=== PATIENT | male | born 1990 | race Caucasian/White ===

== ENCOUNTER 2016-10-26 10:12 | Emergency (ER) | payer OTHER ==
[~2016-10-26] VITALS: Ht 167.6 cm; Wt 89.6 kg
[~2016-10-26 10:12] MED LIST: ALBU1AER9 INH; AMOX1TAB43 PO; CLC100 PO; ESCI10TA17 PO; OXYC1TAB3 PO
[2016-10-26 10:28] VITALS: TEMP 37.1; Ht 167.6 cm; Wt 89.6 kg
[2016-10-26] MEDS ORDERED: ACET-1256 PO (11:11)
[2016-10-26] MEDS ORDERED: ALBUT/IPRATROP 3MG/0.5MG NEB 3 ML VIAL INH STA (11:45)
--- NOTE | 2016-10-26 11:48 | EMERGENCY ROOM VISIT NOTE ---
History First contact with patient: 11:38 Chief Complaint: FLU LIKE SX Stated Complaint: COUGHING,BODYACHES,HEADACHE History of Present Illness The patient is a 26 year old male who presents to the Emergency Room with complaints of flulike symptoms. The patient states he has had symptoms for the last 2 days. The patient reports diffuse arthralgias and myalgias. He states he also has had a cough and runny nose. He states he has chest pain only when he coughs. He rates discomfort an 8/10. He denies any earache or sore throat. He denies any shortness of breath. He denies any abdominal pain, nausea, vomiting or diarrhea. He did not get a flu shot this year. He does not know of any sick contacts. The patient has a history of asthma. He has been using his albuterol inhaler without significant relief. Review of Systems A 10 system review of systems was completed with positives and pertinent negatives listed in the HPI. Past Medical/Surgical History Medical Problems: (1) Anxiety (2) Asthma (3) H/O drug abuse (4) Hx of meningitis (5) Clemente's angina (6) Mass of left submandibular region (7) Seasonal allergic conjunctivitis Surgical Problems: (1) H/O esophagogastroduodenoscopy Family History Cancer Diabetes mellitus Gallbladder disease Heart disease Hypertension Kidney disease Kidney stones Seizures Social History Smoking Status: Current Every Day Smoker Alcohol Use: occasionally Drug Use: none Marital Status: in relationship Housing Status: lives with family, lives with significant other Occupation Status: employed Current/Historical Medications Scheduled Benzonatate (Tessalon Perles), 200 MG PO TID Oseltamivir (Tamiflu), 75 MG PO BID Scheduled PRN Albuterol (Proair Hfa), 2 PUFFS INH Q6H PRN for SOB/Wheezing Miscellaneous Medications Acetaminophen (Tylenol), 1,000 MG PO Allergies Coded Allergies: No Known Allergies (Unverified , 10/26/16) none Physical Exam Vital Signs Date Time Temp Pulse Resp B/P Pulse Ox O2 Delivery O2 Flow Rate FiO2 10/26/16 13:06 99 18 141/93 93 10/26/16 12:01 89 144/78 98 Nebulizer 10/26/16 10:28 37.1 91 18 141/86 97 Room Air Physical Exam VITALS: Vitals are noted on the nurse's note and reviewed by myself. Vital signs stable. The patient is afebrile. GENERAL: This is a 26-year-old male, in no acute distress, nondiaphoretic, well- developed well-nourished. SKIN: The skin was without rashes, erythema, edema, or bruising. There is no tenting of the skin. Capillary reflex less than 2 seconds. HEAD: Normocephalic atraumatic. EARS: External auditory canals clear, tympanic membranes pearly baum without erythema or effusion bilaterally. EYES: Pupils equal round and reactive to light and accommodation. Conjunctivae without injection, sclerae without icterus. Extraocular movements intact. NOSE: Patent, there is clear discharge MOUTH: Mucous membranes moist. Tonsils are not enlarged. Mild posterior pharyngeal erythema Uvula midline. Airway patent. Tongue does not deviate. NECK: Supple without nuchal rigidity. No lymphadenopathy. No thyromegaly. No JVD. HEART: Regular rate and rhythm without murmurs gallops or rubs. LUNGS: There are a few scattered expiratory wheezes, otherwise clear. No retractions or accessory muscle use. MUSCULOSKELETAL: No muscle atrophy, erythema, or edema noted. Full range of motion in all extremities. Normal gait. Strength 5/5 throughout. NEURO: Patient was alert and oriented to person place and time. No focal neurological deficits. Medical Decision & Procedures ER Provider Diagnostic Interpretation: TWO VIEW CHEST CLINICAL HISTORY: Cough and headache. Bodyaches. FINDINGS: PA and lateral chest radiographs are compared to study dated 07/18/2013. The cardiomediastinal silhouette is unremarkable. There is mild chronic elevation of left hemidiaphragm. The lungs and pleural spaces are clear. There is no pneumothorax. The bony thorax appears intact. IMPRESSION: No active disease in the chest. Laboratory Results Test 10/26/16 11:58 Influenza Type A Antigen Neg for Influ A (NEG) Influenza Type B Antigen Neg for Influ B (NEG) Medications Administered Medications (Trade) Dose Ordered Sig/Demian Route Start Time Stop Time Status Last Admin Dose Admin Albuterol/ Ipratropium (Duoneb) 3 ml NOW STAT INH 10/26/16 11:45 10/26/16 11:46 DC 10/26/16 11:59 3 ML ED Course The patient was seen and examined. Previous visits were reviewed. The patient is afebrile. Chest x-ray was negative for pneumonia. Influenza was negative. The patient was given a nebulizer with improvement in his symptoms The patient does have influenza-like symptoms. He does have asthma. His symptoms started approximately 2 days ago. I feel that the patient would be a candidate for Tamiflu despite having the negative influenza swab. He will also be given a prescription for Tessalon Perles and a note for work. He states he does have a 6-month-old at home who did get a flu shot. I advised him to contact the director of acquisition marketing to discuss possible prophylaxis as indicated. The case was discussed with Dr. Howell who agrees with the assessment and treatment plan Medical Decision The differential diagnosis includes bronchitis, pneumonia, influenza, viral illness, asthma exacerbation, among others Impression Primary Impression: Influenza-like symptoms Departure Information Dispostion Home / Self-Care Condition GOOD Prescriptions Benzonatate (Tessalon Perles) 200 Mg Cap 200 MG PO TID for Cough for 10 Days, #30 CAP Prov: Kayla Beach PA-C 10/26/16 Oseltamivir (Tamiflu) 75 Mg Cap 75 MG PO BID for 5 Days, #10 CAP Prov: Kayla Beach PA-C 10/26/16 Referrals No Doctor, Assigned (PCP) Forms HOME CARE DOCUMENTATION FORM, IMPORTANT VISIT INFORMATION, Work Instructions Return To Work: 3 days Patient Instructions My [facility], Rapid Influenza Antigen Nasal or Throat Swab Additional Instructions Tamiflu every 12 hours for 5 days Tessalon Perles as prescribed, as needed for cough Tylenol or ibuprofen according to package instructions for pain/fever Continue to use your inhaler Return to the ER with any worsening symptoms Recheck with your family doctor at the end of the week or early next week if symptoms are not improving
--- NOTE | 2016-10-26 12:12 | DIAGNOSTIC IMAGING REPORT ---
TWO VIEW CHEST CLINICAL HISTORY: Cough and headache. Bodyaches. FINDINGS: PA and lateral chest radiographs are compared to study dated 07/18/2013. The cardiomediastinal silhouette is unremarkable. There is mild chronic elevation of left hemidiaphragm. The lungs and pleural spaces are clear. There is no pneumothorax. The bony thorax appears intact. IMPRESSION: No active disease in the chest. Electronically signed by: Zacarias Ohara M.D. 10/26/2016 12:10 PM Dictated Date/Time: 10/26/2016 12:10 PM
[2016-10-26] MEDS ORDERED: BENZ1CAP90 PO (12:58)
[2016-10-26] MEDS ORDERED: OSEL75CA12 PO (12:58)
[2016-10-26 13:06] VITALS: BP 141/93; PULSE 99; O2SAT 93
== END 2016-10-26 13:08 | disposition home or self-care (01) ==
LOC: C.EDB 10:13 → C.EDC 13:08
DX: R69 Illness, unspecified (principal); J45.909 Unspecified asthma, uncomplicated; F17.200 Nicotine dependence, unspecified, uncomplicated; Z82.49 Family history of ischemic heart disease and other diseases of the circulatory system; Z83.79 Family history of other diseases of the digestive system; Z83.3 Family history of diabetes mellitus; Z84.1 Family history of disorders of kidney and ureter; Z82.0 Family history of epilepsy and other diseases of the nervous system

== ENCOUNTER 2017-09-07 12:23 | Emergency (ER) | payer OTHER ==
[~2017-09-07] VITALS: Ht 167.6 cm; Wt 87.0 kg
[2017-09-07 12:26] VITALS: TEMP 36.7; Ht 167.6 cm; Wt 87.0 kg
[2017-09-07] MEDS ORDERED: KETOROLAC TROMETHAMINE 30 MG/ML VIAL IV STA (12:45)
[2017-09-07] MEDS ORDERED: VNTHFA/IN INH (12:54)
[2017-09-07 13:00] LABS: BASO % 0.3 %; BASO ABS # 0.04 K/uL (0-0.2); COMPLETE YES; EOS % 5.7 %; HEMATOCRIT 46.7 % (42-52); IG% 0.3 %; LYMPH % 31.4 %; LYMPH ABS # 3.68 K/uL (1.2-3.4); MEAN CELL VOLUME 88.8 fL (80-100); MEAN CORPUSCULAR HEMOGLOBIN 30.4 pg (25-34); MEAN CORPUSCULAR HGB CONC 34.3 g/dl (32-36); MEAN PLATELET VOLUME 10.1 fL (7.4-10.4); MONO % 7.5 %; NEUT % 54.8 %; PLATELET COUNT 306 K/uL (130-400); RED BLOOD COUNT 5.26 M/uL (4.7-6.1); WHITE BLOOD COUNT 11.71 K/uL (4.8-10.8)
--- NOTE | 2017-09-07 13:16 | DIAGNOSTIC IMAGING REPORT ---
CHEST ONE VIEW PORTABLE CLINICAL HISTORY: 27 years-old Male presenting with Chest Pain. TECHNIQUE: Portable upright AP view of the chest was obtained. COMPARISON: 08/16/2017. FINDINGS: Cardiomediastinal silhouette normal. Lungs and pleural spaces clear. Osseous structures normal. Upper abdomen normal. IMPRESSION: 1. No acute cardiopulmonary disease. Electronically signed by: Feliz Alejandra M.D. 09/07/2017 1:15 PM Dictated Date/Time: 09/07/2017 1:14 PM
[2017-09-07 13:18] LABS: BLOOD UREA NITROGEN 21 mg/dl (7-18); BUN/CREATININE RATIO 17.6 (10-20); CALCIUM 9.5 mg/dl (8.5-10.1); CARBON DIOXIDE 30 mmol/L (21-32); CHLORIDE 101 mmol/L (98-107); CREATININE 1.21 mg/dl (0.60-1.40); GLUCOSE 93 mg/dl (70-99); POTASSIUM 4.4 mmol/L (3.5-5.1); SODIUM 135 mmol/L (136-145)
[2017-09-07] MEDS ORDERED: ALBUTEROL 0.083% NEBU SOLN 3 ML VIAL INH STA (13:54)
[2017-09-07 13:58] VITALS: BP 115/66; PULSE 77; O2SAT 99
--- NOTE | 2017-09-07 13:58 | EMERGENCY ROOM VISIT NOTE ---
History Report prepared by Sydni: Karely Cha Under the Supervision of: Dr. Néstor Gee D.O. First contact with patient: 12:28 Chief Complaint: CHEST PAIN Stated Complaint: CHEST PAINS Nursing Triage Summary: chest pain since last night mid sternal nonradiating with SOb and coughing up blood pt has asthma History of Present Illness The patient is a 27 year old male who presents to the Emergency Room with complaints of constant chest pain beginning last night. The patient reports that he has been feeling short of breath for the past 2-3 days. Last night he developed chest pain that he states feels like a sharp pain in the center of his chest. This pain has been constant since that time. He rates his current pain as a 9/10 in severity. Putting pressure on his chest helps to alleviate his pain, while twisting, turning, and bending exacerbate his pain. The patient has a history of asthma but states this does not feel like his typical asthma flares. He has been using his inhaler more often over the past few days due to his symptoms. The patient denies any recent trauma or injury. Patient denies swelling of calves, recent trips, history of immobilization or recent surgery, prior history of DVT, hemoptysis, history of malignancy. Patient denies diabetes , hypertension, hyperlipidemia, CAD, and history of sudden at a young age. He did have one episode 3 days ago where he coughed up a slight amount of blood. Source of History: patient Onset: last night Position: chest Symptom Intensity: 9/10 Quality: sharp Timing: constant Modifying Factors (Worsening): movement Modifying Factors (Relieving): other (pressure on chest) Associated Symptoms: + SOB Note: Pt denies any recent trauma or injury. Patient denies swelling of calves, recent trips, history of immobilization or recent surgery, prior history of DVT , hemoptysis, history of malignancy. Patient denies diabetes, hypertension, hyperlipidemia, CAD, and history of sudden at a young age. Review of Systems See HPI for pertinent positives & negatives. A total of 10 systems reviewed and were otherwise negative. Past Medical & Surgical Medical Problems: (1) Anxiety (2) Asthma (3) H/O drug abuse (4) Hx of meningitis (5) Clemente's angina (6) Mass of left submandibular region (7) Seasonal allergic conjunctivitis Surgical Problems: (1) H/O esophagogastroduodenoscopy Family History Cancer Diabetes mellitus Gallbladder disease Heart disease Hypertension Kidney disease Kidney stones Seizures Social History Smoking Status: Current Every Day Smoker Alcohol Use: occasionally Drug Use: none Marital Status: in relationship Housing Status: lives with family, lives with significant other Occupation Status: employed Current/Historical Medications Scheduled Albuterol Hfa (Ventolin Hfa), 2-4 PUFFS INH Q6H Allergies Coded Allergies: No Known Allergies (Unverified , 09/07/17) none Physical Exam Vital Signs Date Time Temp Pulse Resp B/P (MAP) Pulse Ox O2 Delivery O2 Flow Rate FiO2 09/07/17 13:58 77 20 115/66 99 Room Air 09/07/17 12:35 97 Room Air 09/07/17 12:26 36.7 88 16 131/84 95 Physical Exam GENERAL: Sitting up in bed, alert, well appearing, well nourished, no distress, non-toxic EYE EXAM: normal conjunctiva. OROPHARYNX: no exudate, no erythema, lips, buccal mucosa, and tongue normal and mucous membranes are moist NECK: supple, no nuchal rigidity, no adenopathy, non-tender LUNGS: Clear to auscultation. Normal chest wall mechanics HEART: no murmurs, S1 normal and S2 normal CHEST: Acute reproducible anterior sternal tenderness on palpation same as stated complaint. ABDOMEN: abdomen soft, non-tender, normo-active bowel sounds, no masses, no rebound or guarding. BACK: Back is symmetrical on inspection and there is no deformity, no midline tenderness, no CVA tenderness. SKIN: no rashes and no bruising UPPER EXTREMITIES: upper extremities are grossly normal. LOWER EXTREMITIES: No pitting edema, calves equal bilateral NEURO EXAM: Normal sensorium, cranial nerves II-XII grossly intact, normal speech, no gross weakness of arms, no gross weakness of legs. Medical Decision & Procedures ER Provider Diagnostic Interpretation: Radiology results as stated below per my review and the radiologist's interpretation: CHEST ONE VIEW PORTABLE CLINICAL HISTORY: 27 years-old Male presenting with Chest Pain. TECHNIQUE: Portable upright AP view of the chest was obtained. COMPARISON: 08/16/2017. FINDINGS: Cardiomediastinal silhouette normal. Lungs and pleural spaces clear. Osseous structures normal. Upper abdomen normal. IMPRESSION: 1. No acute cardiopulmonary disease. Electronically signed by: Feliz Alejandra M.D. 09/07/2017 1:15 PM Dictated Date/Time: 09/07/2017 1:14 PM Laboratory Results 09/07/17 12:44 Red Blood Count 5.26, Mean Corpuscular Volume 88.8, Mean Corpuscular Hemoglobin 30.4, Mean Corpuscular Hemoglobin Concent 34.3, Mean Platelet Volume 10.1, Neutrophils (%) (Auto) 54.8, Lymphocytes (%) (Auto) 31.4, Monocytes (%) (Auto) 7.5, Eosinophils (%) (Auto) 5.7, Basophils (%) (Auto) 0.3, Neutrophils # (Auto) 6.40, Lymphocytes # (Auto) 3.68, Monocytes # (Auto) 0.88, Eosinophils # (Auto) 0.67, Basophils # (Auto) 0.04 09/07/17 12:44 Test 09/07/17 12:44 White Blood Count 11.71 K/uL (4.8-10.8) Red Blood Count 5.26 M/uL (4.7-6.1) Hemoglobin 16.0 g/dL (14.0-18.0) Hematocrit 46.7 % (42-52) Mean Corpuscular Volume 88.8 fL (80-100) Mean Corpuscular Hemoglobin 30.4 pg (25-34) Mean Corpuscular Hemoglobin Concent 34.3 g/dl (32-36) Platelet Count 306 K/uL (130-400) Mean Platelet Volume 10.1 fL (7.4-10.4) Neutrophils (%) (Auto) 54.8 % Lymphocytes (%) (Auto) 31.4 % Monocytes (%) (Auto) 7.5 % Eosinophils (%) (Auto) 5.7 % Basophils (%) (Auto) 0.3 % Neutrophils # (Auto) 6.40 K/uL (1.4-6.5) Lymphocytes # (Auto) 3.68 K/uL (1.2-3.4) Monocytes # (Auto) 0.88 K/uL (0.11-0.59) Eosinophils # (Auto) 0.67 K/uL (0-0.5) Basophils # (Auto) 0.04 K/uL (0-0.2) RDW Standard Deviation 41.5 fL (36.4-46.3) RDW Coefficient of Variation 12.9 % (11.5-14.5) Immature Granulocyte % (Auto) 0.3 % Immature Granulocyte # (Auto) 0.04 K/uL (0.00-0.02) D-Dimer < 190 ug/L FEU (0-500) Anion Gap 4.0 mmol/L (3-11) Est Creatinine Clear Calc Drug Dose 95.6 ml/min Estimated GFR () 95.2 Estimated GFR (Non- 82.1 BUN/Creatinine Ratio 17.6 (10-20) Calcium Level 9.5 mg/dl (8.5-10.1) Troponin I < 0.015 ng/ml (0-0.045) Laboratory results per my review. Medications Administered Medications (Trade) Dose Ordered Sig/Demian Route Start Time Stop Time Status Last Admin Dose Admin Ketorolac Tromethamine (Toradol Inj) 30 mg NOW STAT IV 09/07/17 12:45 09/07/17 12:46 DC 09/07/17 12:54 30 MG Albuterol Sulfate (Ventolin 0.083% 2.5MG/3ML Neb) 2.5 mg NOW STAT INH 09/07/17 13:54 09/07/17 13:55 DC 09/07/17 13:56 2.5 MG ECG Indication: chest pain Rate (beats per minute): 76 Rhythm: normal sinus Findings: no ectopy, other (normal axis; poor baseline inferior) Comparison ECG Date: 11/14/2009 Change: no significant change ED Course ED COURSE: Vital signs were reviewed and showed normal vitals. The patients medical record was reviewed The above diagnostic studies were performed and reviewed. ED treatments and interventions as stated above. 1228: The patient was evaluated in room C9. A complete history and physical examination was performed. 1245: Ordered Toradol 30 mg IV 1350: Upon reevaluation, the patient is feeling better and resting comfortably. I discussed my findings with the patient and he understands and agrees with the treatment plan. Based on the patients age, coexisting illnesses, exam and lab findings the decision to treat as an outpatient was made. The patient remained stable while under my care. The patient appeared well at the time of discharge. 1354: Albuterol Sulfate 2.5 mg INH Medical Decision Differential diagnoses includes but is not limited to acute coronary syndrome, myocardial infarction, pericarditis, pulmonary embolus, aortic dissection, pneumonia, pneumothorax, musculoskeletal, shingles, esophageal. Patient is a 27-year-old male who presents to ER for midsternal chest pain which is reproducible on exam. CBC all BMP was unremarkable. Troponin was negative with pain greater than 8 hours. EKG was nondiagnostic. Chest x-ray unremarkable. D-dimer was negative. Pain was significant improved/resolved with Toradol. He was given a neb treatment per his request. Patient was updated at bedside and discharged with costochondritis. Discussed with Pt concerning signs and symptoms to watch out for. Pt was instructed to follow up with their PCP and discussed with the patient their option to return to the ED at anytime for persistent or worsening symptoms. The appropriate anticipatory guidance and out-patient management, including indications for return to the emergency department, were explained at length to the patient and understood. Medication Reconcilliation Current Medication List: was personally reviewed by me Blood Pressure Screening Patient's blood pressure: Normal blood pressure Impression Primary Impression: Acute costochondritis Scribe Attestation The scribe's documentation has been prepared under my direction and personally reviewed by me in its entirety. I confirm that the note above accurately reflects all work, treatment, procedures, and medical decision making performed by me. Departure Information Dispostion Home / Self-Care Referrals Rico Limon M.D. (MEDICAL) (PCP) Forms HOME CARE DOCUMENTATION FORM, IMPORTANT VISIT INFORMATION Patient Instructions My [facility] Additional Instructions Please follow up with your primary care doctor with in the next 24 hours. Any worsening of your symptoms, please return to the ED immediately. This includes any fevers greater than 100.4, worsening pain, chest pain, shortness breath, persistent nausea, vomiting, unable to eat or drink, or any other concerning signs or symptoms from your standpoint. Please take Tylenol or Motrin as needed for pain.
== END 2017-09-07 14:11 | disposition home or self-care (01) ==
LOC: C.EDB 12:27 → C.EDC 14:11
DX: M94.0 Chondrocostal junction syndrome [Tietze] (principal); J45.909 Unspecified asthma, uncomplicated; F17.200 Nicotine dependence, unspecified, uncomplicated; Z98.890 Other specified postprocedural states; Z83.3 Family history of diabetes mellitus; Z82.49 Family history of ischemic heart disease and other diseases of the circulatory system; Z84.1 Family history of disorders of kidney and ureter; Z82.0 Family history of epilepsy and other diseases of the nervous system

== ENCOUNTER 2017-09-14 05:28 | Emergency (ER) | payer OTHER ==
[~2017-09-14] VITALS: Ht 167.6 cm; Wt 89.1 kg
[~2017-09-14 05:28] MED LIST changes: -ALBU1AER9 INH; -AMOX1TAB43 PO; -CLC100 PO; -ESCI10TA17 PO; -OXYC1TAB3 PO; +VNTHFA/IN INH
[2017-09-14 05:31] VITALS: TEMP 36.6; Ht 167.6 cm; Wt 89.1 kg
[2017-09-14] MEDS ORDERED: AMOX875T PO (06:11)
[2017-09-14] MEDS ORDERED: AMOXICIL/CLAVU 875MG HOME PACK PO ONE (06:15)
[2017-09-14 06:38] VITALS: BP 131/87; PULSE 72; O2SAT 98
--- NOTE | 2017-09-14 22:43 | EMERGENCY ROOM VISIT NOTE ---
History First contact with patient: 05:36 Chief Complaint: HEAD PAIN Stated Complaint: PAIN FROM HEAD INTO EARS History of Present Illness The patient is a 27 year old male who presents to the Emergency Room with complaints of right-sided head and ear pain worsening over the past 2 days. The patient states that he went to his primary care physician yesterday, where he had cerumen removed from his right ear. He states that this ear is very painful now, and evidently they did start him on antibiotic eardrops. The patient has not had distinct fever, neck pain, chest pain or chest tightness, or shortness of breath with this. The patient rates his pain a 9/10. He has not taken anything [id number] for his symptoms. Review of Systems More than 10 systems were reviewed and otherwise negative with the exception of history of present illness. Past Medical/Surgical History Medical Problems: (1) Anxiety (2) Asthma (3) H/O drug abuse (4) Hx of meningitis (5) Clemente's angina (6) Mass of left submandibular region (7) Seasonal allergic conjunctivitis Surgical Problems: (1) H/O esophagogastroduodenoscopy Family History Cancer Diabetes mellitus Gallbladder disease Heart disease Hypertension Kidney disease Kidney stones Seizures Social History Smoking Status: Current Some Day Smoker Alcohol Use: occasionally Drug Use: none Marital Status: in relationship Housing Status: lives with family, lives with significant other Occupation Status: employed Current/Historical Medications Scheduled Amoxicillin & Pot Clavulanate (Augmentin 875-125 mg), 1 TAB PO BID Scheduled PRN Albuterol Hfa (Ventolin Hfa), 2 PUFFS INH Q6H PRN for SOB/Wheezing Physical Exam Vital Signs Date Time Temp Pulse Resp B/P (MAP) Pulse Ox O2 Delivery O2 Flow Rate FiO2 09/14/17 06:38 72 18 131/87 98 Room Air 09/14/17 05:31 36.6 90 20 152/89 98 Room Air Physical Exam VITALS: Vitals are noted on the nurse's note and reviewed by myself. Vital signs stable. GENERAL: Well-developed, well-nourished, white male, who is in no acute distress and resting comfortably. Patient is cooperative with the examination. HEAD: Normocephalic atraumatic. EARS: Right ear canal is erythematous. Right TM is erythematous without air- fluid interface. No mastoid tenderness. Left TM not visualized due to cerumen impaction. EYES: Pupils equal round and reactive to light and accommodation. Conjunctivae without injection, sclerae without icterus. Extraocular movements intact. NOSE: Patent, turbinates without inflammation or discharge. MOUTH: Mucous membranes moist. Tonsils are not enlarged. Pharynx without erythema, blood, or exudate. Uvula midline. Airway patent. NECK: Supple without nuchal rigidity. No lymphadenopathy. No thyromegaly. Cervical spine is nontender. No meningismus. HEART: Regular rate and rhythm without murmurs gallops or rubs. LUNGS: Clear to auscultation bilaterally without wheezes, rales or rhonchi. No retractions or accessory muscle use. Medical Decision & Procedures Medications Administered Medications (Trade) Dose Ordered Sig/Demian Route Start Time Stop Time Status Last Admin Dose Admin Amoxicillin/ Clavulanate Potassium (Augmentin 875MG Home Pack) 1 homepack UD ONCE PO 09/14/17 06:15 09/14/17 06:16 DC 09/14/17 06:32 1 HOMEPACK ED Course Physical exam and history were performed. Nursing notes, EMR, and Medication List were personally reviewed. Patient appears to have a right otitis media on examination. Additionally he does have some irritation in the canal likely from mechanical removal of cerumen earlier today. I'm not able to compare the bilateral TMs as there is cerumen impaction in the left ear as well. I did attempt to gently flush the cerumen with warm water, however I was not successful. Overall the patient appears well for discharge home. He will be started on oral Augmentin with his first dose provided here. He may use [id number] Debrox to help with the cerumen. He should otherwise follow with his primary care physician for further care and management. The chart was completed utilizing [employer] Voice Recognition Software. Grammatical errors, random word insertions, pronoun errors, and incomplete sentences are an occasional consequence of this system due to software limitations, ambient noise, and hardware issues. Any formal questions or concerns about the content, text, or information contained within the body of this dictation should be directly addressed to the provider for clarification. . Medical Decision Differential diagnosis: Etiologies such as viral syndrome, otitis, pharyngitis, pneumonia, influenza, meningitis, urinary tract infection, sepsis, bacteremia, as well as others were entertained. Impression Primary Impression: Right otitis media Additional Impression: Impacted cerumen of left ear Departure Information Dispostion Home / Self-Care Condition GOOD Prescriptions Amoxicillin & Pot Clavulanate (Augmentin 875-125 mg) 1 Tab Tab 1 TAB PO BID for 9 Days, #18 TAB Prov: Junior Lopez PA-C 09/14/17 Forms HOME CARE DOCUMENTATION FORM, Work Instructions, Additional Instructions: Patient was seen in the ER today for medical care. Return to work o 09/15/2017. Please excuse. IMPORTANT VISIT INFORMATION Patient Instructions My [facility] Additional Instructions You were seen and evaluated today on an emergency basis only. This is not a substitute for, or an effort to provide, complete comprehensive medical care. It is not possible to recognize and treat all injuries or illnesses in a single emergency department visit. For this reason it is recommended that you followup with your primary care physician in the next 2-3 days for recheck. For baseline pain relief you may alternate ibuprofen and acetaminophen every 4 hours for pain control. Take 600 mg ibuprofen (Advil) and then 4 hours later take 1000 mg acetaminophen (Tylenol). Do not take more than 3000 mg acetaminophen in a single day. Amoxicillin Clavulanate (Augmentin) 875mg: Take one pill twice daily for 10 days for your infection. All antibiotics can cause diarrhea. If this occurs and you feel worse or it does not resolve in 1-2 days follow up with your doctor or return to the Emergency Department as this could be signs of serious underlying problems. Any medication can cause an allergic reaction, stop the pills immediately and return to the ER for rash, hives, breathing difficulties, or swelling. Use over the counter Debrox for earwax in the left ear. You are welcome to return to the emergency department anytime with new, worsening, or concerning symptoms. Work Instructions Additional Work Instructions: Patient was seen in the ER today for medical care. Return to work on 09/15/2017. Please excuse. Problem Qualifiers
== END 2017-09-14 06:40 | disposition home or self-care (01) ==
LOC: C.EDB 05:29
DX: H66.91 Otitis media, unspecified, right ear (principal); H61.22 Impacted cerumen, left ear; R51 Headache; J45.909 Unspecified asthma, uncomplicated; F41.9 Anxiety disorder, unspecified

== ENCOUNTER 2017-09-17 14:15 | Emergency (ER) | payer OTHER ==
[~2017-09-17] VITALS: Ht 167.6 cm; Wt 85.7 kg
[~2017-09-17 14:15] MED LIST changes: +AMOX875T PO
[2017-09-17 14:19] VITALS: Ht 167.6 cm; Wt 85.7 kg
[2017-09-17] MEDS ORDERED: KETOROLAC TROMETHAMINE 30 MG/ML VIAL IV STA (14:33)
[2017-09-17] MEDS ORDERED: ONDANSETRON INJ 2 MG/ML 2 ML VIAL IV STA (14:33)
--- NOTE | 2017-09-17 14:37 | EMERGENCY ROOM VISIT NOTE ---
History Report prepared by Sydni: Ericka Araya Under the Supervision of: Dr. Fabio Sandhu D.O. First contact with patient: 14:25 Chief Complaint: HEADACHE Stated Complaint: HEADACHE AND HEARING LOSS History of Present Illness The patient is a 27 year old male who presents to the Emergency Room with complaints of a persistent headache and bilateral hearing loss. 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 He came to the ED for the same symptoms previously and also saw his PCP, but no known etiology was found. He is still on Amoxicillin that was prescribed here in the ED. He is unsure what tests he had done. The patient denies any neck pain or stiffness, chest pain, shortness of breath, nausea or vomiting. He does admit to a history of meningitis approximately 2 to 3 years ago, and also admits to a history of IV Heroin use. He does not currently use drugs. He admits to some intermittent chills but has not had a fever. He denies any leg pain or swelling or difficulty urinating. 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 A total of 10 systems reviewed and were otherwise negative. Past Medical & Surgical Medical Problems: (1) Anxiety (2) Asthma (3) H/O drug abuse (4) Hx of meningitis (5) Clemente's angina (6) Mass of left submandibular region (7) Seasonal allergic conjunctivitis Surgical Problems: (1) H/O esophagogastroduodenoscopy Family History Cancer Diabetes mellitus Gallbladder disease Heart disease Hypertension Kidney disease Kidney stones Seizures Social History Smoking Status: Current Every Day Smoker Alcohol Use: occasionally Drug Use: none Marital Status: in relationship Housing Status: lives with family, lives with significant other Occupation Status: employed Current/Historical Medications Scheduled Cefdinir (Omnicef), 300 MG PO Q12H Sertraline HCl (Sertraline HCl), 25 MG PO DAILY Scheduled PRN Albuterol Hfa (Ventolin Hfa), 2 PUFFS INH Q6H PRN for SOB/Wheezing Allergies Coded Allergies: No Known Allergies (Unverified , 09/17/17) none Physical Exam Vital Signs Date Time Temp Pulse Resp B/P (MAP) Pulse Ox O2 Delivery O2 Flow Rate FiO2 09/17/17 19:21 74 16 131/71 94 Room Air 09/17/17 17:34 37.0 75 18 134/73 94 Room Air 09/17/17 15:42 80 16 142/86 96 Room Air 09/17/17 14:19 36.4 92 20 139/91 96 Room Air Physical Exam GENERAL: Patient is awake, alert, in no acute distress, patient is resting comfortably and showing no signs of anxiety EYES: The conjunctivae are clear. The pupils are round and reactive. EARS, NOSE, MOUTH AND THROAT: Right TM was sunken and erythematous. Left TM was obscured by cerumen. The nose is without any evidence of any deformity. Mucous membranes are moist tongue is midline NECK: The neck is nontender and supple. RESPIRATORY: Normal respiratory effort is noted there is no evidence of wheezing rhonchi or rales CARDIOVASCULAR: Regular rate and rhythm noted there no murmurs rubs or gallops normal S1 normal S2 GASTROINTESTINAL: The abdomen is soft. Bowel sounds are present in all quadrants. Abdomen is nontender MUSCULOSKELETAL/EXTREMITIES: There is no evidence of gross deformity full range of motion is noted in the hips and shoulders SKIN: There is no obvious evidence of any rash. There are no petechiae, pallor or cyanosis noted. NEUROLOGIC: Patient is awake alert and oriented x3 strength is symmetric patellar reflexes are 2+ bilaterally Medical Decision & Procedures ER Provider Diagnostic Interpretation: Radiology results as stated below per my review and radiologist interpretation: HEAD WITHOUT CONTRAST (CT) CT DOSE: 614.27 mGy.cm HISTORY: Headache. Mental status change. RAHMAN TECHNIQUE: Multiaxial CT images of the head were performed without the use of intravenous contrast. A dose lowering technique was utilized adhering to the principles of ALARA. Comparison: 06/03/2014 Findings: Mild mucosal thickening of the ethmoid as well as mastoid air cells. The calvarium and skull base are intact. The ventricles and sulci are within normal limits. There is no mass, hematoma, midline shift, or acute infarct. Impression: 1. No acute intracranial abnormality. 2. Mild mucosal thickening of the mastoid and ethmoid air cells. The above report was generated using voice recognition software. It may contain grammatical, syntax or spelling errors. Electronically signed by: Saulo Lawson M.D. 09/17/2017 3:38 PM Laboratory Results 09/17/17 14:50 Red Blood Count 4.99, Mean Corpuscular Volume 88.0, Mean Corpuscular Hemoglobin 30.5, Mean Corpuscular Hemoglobin Concent 34.6, Mean Platelet Volume 10.0, Neutrophils (%) (Auto) 55.6, Lymphocytes (%) (Auto) 29.0, Monocytes (%) (Auto) 9.1, Eosinophils (%) (Auto) 5.7, Basophils (%) (Auto) 0.3, Neutrophils # (Auto) 6.66, Lymphocytes # (Auto) 3.47, Monocytes # (Auto) 1.09, Eosinophils # (Auto) 0.68, Basophils # (Auto) 0.03 09/17/17 14:50 Test 09/17/17 14:50 09/17/17 16:50 White Blood Count 11.97 K/uL (4.8-10.8) Red Blood Count 4.99 M/uL (4.7-6.1) Hemoglobin 15.2 g/dL (14.0-18.0) Hematocrit 43.9 % (42-52) Mean Corpuscular Volume 88.0 fL (80-100) Mean Corpuscular Hemoglobin 30.5 pg (25-34) Mean Corpuscular Hemoglobin Concent 34.6 g/dl (32-36) Platelet Count 320 K/uL (130-400) Mean Platelet Volume 10.0 fL (7.4-10.4) Neutrophils (%) (Auto) 55.6 % Lymphocytes (%) (Auto) 29.0 % Monocytes (%) (Auto) 9.1 % Eosinophils (%) (Auto) 5.7 % Basophils (%) (Auto) 0.3 % Neutrophils # (Auto) 6.66 K/uL (1.4-6.5) Lymphocytes # (Auto) 3.47 K/uL (1.2-3.4) Monocytes # (Auto) 1.09 K/uL (0.11-0.59) Eosinophils # (Auto) 0.68 K/uL (0-0.5) Basophils # (Auto) 0.03 K/uL (0-0.2) RDW Standard Deviation 39.8 fL (36.4-46.3) RDW Coefficient of Variation 12.5 % (11.5-14.5) Immature Granulocyte % (Auto) 0.3 % Immature Granulocyte # (Auto) 0.04 K/uL (0.00-0.02) Erythrocyte Sedimentation Rate 31 mm/hr (0-14) Anion Gap 3.0 mmol/L (3-11) Est Creatinine Clear Calc Drug Dose 114.9 ml/min Estimated GFR () 119.9 Estimated GFR (Non- 103.4 BUN/Creatinine Ratio 17.8 (10-20) Calcium Level 9.5 mg/dl (8.5-10.1) Total Bilirubin 0.3 mg/dl (0.2-1) Direct Bilirubin < 0.1 mg/dl (0-0.2) Aspartate Amino Transf (AST/SGOT) 19 U/L (15-37) Alanine Aminotransferase (ALT/SGPT) 36 U/L (12-78) Alkaline Phosphatase 110 U/L (45-117) C-Reactive Protein 3.90 mg/dl (0-0.29) Total Protein 7.6 gm/dl (6.4-8.2) Albumin 3.8 gm/dl (3.4-5.0) Lipase 74 U/L (73-393) CSF Color COLORLESS CSF Appearance CLEAR CSF WBC 1 /uL (0-5) CSF RBC 16 /uL (0) CSF Xanthrochromic NO XANTHOCHROMIA CSF Cell Count Tube # 4 CSF Chemistry Tube # 2 CSF Glucose 58 mg/dl (40-70) CSF Total Protein 39.4 mg/dl (15.0-45.0) Laboratory results per my review. Medications Administered Medications (Trade) Dose Ordered Sig/Demian Route Start Time Stop Time Status Last Admin Dose Admin Ketorolac Tromethamine (Toradol Inj) 30 mg NOW STAT IV 09/17/17 14:33 09/17/17 14:34 DC 09/17/17 15:12 30 MG Ondansetron HCl (Zofran Inj) 4 mg NOW STAT IV 09/17/17 14:33 09/17/17 14:35 DC 09/17/17 14:33 4 MG Ceftriaxone Sodium 2000 mg/ Dextrose 70 ml @ 100 mls/hr ONE STAT IV 09/17/17 16:34 09/17/17 17:15 DC 09/17/17 17:31 100 MLS/HR Dexamethasone Sodium Phosphate (Decadron Inj) 10 mg NOW STAT IV 09/17/17 16:34 09/17/17 16:35 DC 09/17/17 17:31 10 MG Procedure Lumbar Puncture Indication: Headache Verbal consent was obtained after the risks and benefits were explained, including but not limited to headache, bleeding/clotting, scarring, infection, pain, and bone/joint/nerve damage. At this time, the risks of the procedure are less than the risks of NOT performing the procedure. A time out was taken and the correct patient and site identified. The patient was placed in the seated position and the back was prepped with betadine and draped in the standard fashion. The L3 intervertebral space was identified, anesthetized locally with 1 % lidocaine without epinephrine, and the spinal needle was inserted through the skin with the bevel parallel to the dural fibers. The needle was carefully advanced into the lumbar cistern and 4 tubes of clear CSF was obtained. The stylet was replaced and the needle was removed. A bandaid was placed and the patient was placed in the supine position. The patient tolerated the procedure well and there were no complications. ED Course 1429: The patient was evaluated in room B9. A complete history and physical examination were performed. 1433: Zofran 4 mg IV, Toradol 30 mg IV. 1634: Decadron 10 mg IV, Ceftriaxone Sodium 2000 mg/Dextrose 70 ml @ 100 mls/hr IV. 1635: I reevaluated the patient. He is resting. I discussed my recommendation we perform a lumbar puncture, and he is agreeable. 1900: I reevaluated the patient. He is feeling well and resting comfortably. I discussed his results and discharge instructions and he verbalized complete understanding and agreement. Medical Decision Prior records/ancillary studies reviewed. Triage Nursing notes reviewed. The patient's history was concerning for headache. Differential diagnosis: Etiologies such as migraine headache, meningitis, sinusitis, CO exposure, ICH, SAH, infection, tumor, headache, sinus thrombosis, arterial dissection, as well as others were entertained. The patient is a 27-year-old male who presented to the emergency department for an evaluation of headache. The patient describes ear pain and fullness as well as decreased hearing. The patient did not have any focal neurological. He had some cerumen impaction in his left ear but his right ear seemed to be more symptomatic. The patient had what appeared to be an otitis media and was treated with amoxicillin recently. His exam appears to be consistent with otitis media at this time as well. The patient has a history of meningitis. He did not have meningismus but did have a mildly elevated white blood cell count. I discussed the patient's laboratory and radiographic studies with him. He was treated with IV pain medication and IV antiemetics. I discussed other causes of this headache with him which could include meningitis. For this reason a lumbar puncture was obtained. The patient tolerated the procedure well. It was not indicative of meningitis or subarachnoid hemorrhage. The patient at this time may have a sinusitis or an ongoing otitis media. I started a different antibiotic. He was encouraged to continue this antibiotic as prescribed. Is also encouraged to call his family doctor soon as possible to schedule a follow- up appointment and discuss the possibility that he may require an ear nose and throat referral for further evaluation of his symptoms. He was also encouraged to return to the emergency Department immediately symptoms change worsen or the need arises. Medication Reconcilliation Current Medication List: was personally reviewed by me Blood Pressure Screening Patient's blood pressure: Elevated blood pressure Blood pressure disposition: Elevated BP felt to be situational Impression Primary Impression: Otitis media Additional Impression: Sinusitis Scribe Attestation The scribe's documentation has been prepared under my direction and personally reviewed by me in its entirety. I confirm that the note above accurately reflects all work, treatment, procedures, and medical decision making performed by me. Departure Information Dispostion Home / Self-Care Prescriptions Cefdinir (OMNICEF) 300 Mg Cap 300 MG PO Q12H, #20 CAP Prov: Fabio Sandhu, DO 09/17/17 Referrals Rico Limon M.D. (MEDICAL) (PCP) Patient Instructions ED Otitis Media Acute Adult, My [facility], Sinusitis Acute Additional Instructions Start taking the new antibiotic tomorrow. Stop taking the amoxicillin tomorrow. Continue taking Motrin and Tylenol as directed for pain. Drink plenty clear liquids. Try using an [id number] nasal spray such as Flonase for decongestion. Follow-up with your family doctor as soon as possible to discuss the possibility that you may require a referral to an ear nose and throat physician if symptoms do not improve. Return to the emergency department if symptoms change worsen or the need arises. Problem Qualifiers Primary Impression: Otitis media Otitis media type: unspecified Chronicity: acute Qualified Codes: H66.90 - Otitis media, unspecified, unspecified ear Additional Impression: Sinusitis Sinusitis location: unspecified location Chronicity: acute Recurrence: not specified as recurrent Qualified Codes: J01.90 - Acute sinusitis, unspecified
[2017-09-17] MEDS ORDERED: ZLF/50 PO (14:43)
[2017-09-17 15:04] LABS: BASO % 0.3 %; BASO ABS # 0.03 K/uL (0-0.2); COMPLETE YES; EOS % 5.7 %; HEMATOCRIT 43.9 % (42-52); IG% 0.3 %; LYMPH ABS # 3.47 K/uL (1.2-3.4); MEAN CORPUSCULAR HEMOGLOBIN 30.5 pg (25-34); MEAN CORPUSCULAR HGB CONC 34.6 g/dl (32-36); MONO % 9.1 %; NEUT % 55.6 %; PLATELET COUNT 320 K/uL (130-400); RED BLOOD COUNT 4.99 M/uL (4.7-6.1); WHITE BLOOD COUNT 11.97 K/uL (4.8-10.8)
[2017-09-17 15:37] LABS: ALT/SGPT 36 U/L (12-78); AST/SGOT 19 U/L (15-37); BLOOD UREA NITROGEN 18 mg/dl (7-18); BUN/CREATININE RATIO 17.8 (10-20); CALCIUM 9.5 mg/dl (8.5-10.1); CARBON DIOXIDE 30 mmol/L (21-32); CHLORIDE 103 mmol/L (98-107); GLUCOSE 84 mg/dl (70-99); POTASSIUM 4.1 mmol/L (3.5-5.1); SODIUM 136 mmol/L (136-145)
--- NOTE | 2017-09-17 15:39 | DIAGNOSTIC IMAGING REPORT ---
HEAD WITHOUT CONTRAST (CT) CT DOSE: 614.27 mGy.cm HISTORY: Headache. Mental status change. RAHMAN TECHNIQUE: Multiaxial CT images of the head were performed without the use of intravenous contrast. A dose lowering technique was utilized adhering to the principles of ALARA. Comparison: 06/03/2014 Findings: Mild mucosal thickening of the ethmoid as well as mastoid air cells. The calvarium and skull base are intact. The ventricles and sulci are within normal limits. There is no mass, hematoma, midline shift, or acute infarct. Impression: 1. No acute intracranial abnormality. 2. Mild mucosal thickening of the mastoid and ethmoid air cells. The above report was generated using voice recognition software. It may contain grammatical, syntax or spelling errors. Electronically signed by: Saulo Lawson M.D. 09/17/2017 3:38 PM Dictated Date/Time: 09/17/2017 3:36 PM
[2017-09-17 15:40] LABS: ALKALINE PHOSPHATASE 110 U/L (45-117)
[2017-09-17] MEDS ORDERED: DEXAMETHASONE SOD INJ 4 MG/ML VIAL IV STA (16:34)
[2017-09-17] MEDS ORDERED: CEFTRIAXONE SOD INJ 2,000 MG in DEXTROSE 5% 50ML 50 ML IV STA (16:34)
[2017-09-17 17:19] LABS: CSF TOTAL PROTEIN 39.4 mg/dl (15.0-45.0)
[2017-09-17 17:28] LABS: CSF APPEARANCE CLEAR; CSF COLOR COLORLESS; CSF XANTHOCHROMIC NO XANTHOCHROMIA
[2017-09-17 17:31] LABS: CSF CHEMISTRY TUBE # 2
[2017-09-17 17:34] VITALS: TEMP 37
[2017-09-17 17:44] LABS: CSF APPEARANCE CLEAR; CSF COLOR COLORLESS; CSF XANTHOCHROMIC NO XANTHOCHROMIA
[2017-09-17] MEDS ORDERED: CEFD300C2 PO (19:06)
[2017-09-17 19:21] VITALS: BP 131/71; PULSE 74; O2SAT 94
== END 2017-09-17 19:23 | disposition home or self-care (01) ==
LOC: C.EDB 14:15
DX: H66.90 Otitis media, unspecified, unspecified ear (principal); J01.90 Acute sinusitis, unspecified; J45.909 Unspecified asthma, uncomplicated; F17.200 Nicotine dependence, unspecified, uncomplicated; Z86.69 Personal history of other diseases of the nervous system and sense organs; Z98.890 Other specified postprocedural states; Z83.3 Family history of diabetes mellitus; Z82.49 Family history of ischemic heart disease and other diseases of the circulatory system; Z84.1 Family history of disorders of kidney and ureter; Z82.0 Family history of epilepsy and other diseases of the nervous system

== ENCOUNTER 2017-09-18 18:28 | Emergency (ER) | payer OTHER ==
[~2017-09-18] VITALS: Ht 167.6 cm; Wt 86.5 kg
[~2017-09-18 18:28] MED LIST changes: -AMOX875T PO; +CEFD300C2 PO; +ZLF/50 PO
[2017-09-18 18:31] VITALS: TEMP 36.7; Ht 167.6 cm; Wt 86.5 kg
[2017-09-18] MEDS ORDERED: SODIUM CHLORIDE 0.9% 1000ML 1,000 ML IV STA (19:07)
[2017-09-18] MEDS ORDERED: METHYLPREDNISOLONE 125 MG VIAL IV STA (19:10)
--- NOTE | 2017-09-18 19:10 | EMERGENCY ROOM VISIT NOTE ---
History Report prepared by Mariaibsandra: Ericka Araya Under the Supervision of: Dr. Margarette Hartley M.D. First contact with patient: 19:02 Chief Complaint: NECK PAIN Stated Complaint: NECK PAIN, HEADACHE History of Present Illness The patient is a 27 year old male who presents to the Emergency Room with complaints of a worsening headache for the past day. He rates his discomfort as a 10/10 in severity. Movement worsens his pain. He came here to the ED yesterday with a persistent headache and hearing loss, and had a CT scan and lumbar puncture procedure. This morning when he woke up, his headache had worsened and he developed neck pain and stiffness. He states his headache is more severe today than the headache he experienced yesterday. He does believe it is worse when he coughs or when he sits up. The pain is worse when he is standing. Source of History: patient Onset: yesterday Position: head Symptom Intensity: 10/10 Timing: worsening Modifying Factors (Worsening): movement Associated Symptoms: + neck pain Review of Systems See HPI for pertinent positives & negatives. A total of 10 systems reviewed and were otherwise negative. Past Medical & Surgical Medical Problems: (1) Anxiety (2) Asthma (3) H/O drug abuse (4) Hx of meningitis (5) Clemente's angina (6) Mass of left submandibular region (7) Seasonal allergic conjunctivitis Surgical Problems: (1) H/O esophagogastroduodenoscopy Family History Cancer Diabetes mellitus Gallbladder disease Heart disease Hypertension Kidney disease Kidney stones Seizures Social History Smoking Status: Current Every Day Smoker Alcohol Use: occasionally Drug Use: none Marital Status: in relationship Housing Status: lives with family, lives with significant other Occupation Status: employed Current/Historical Medications Scheduled Cefdinir (Omnicef), 300 MG PO Q12H Sertraline HCl (Sertraline HCl), 50 MG PO DAILY Scheduled PRN Albuterol Hfa (Ventolin Hfa), 2 PUFFS INH Q6H PRN for SOB/Wheezing Allergies Coded Allergies: No Known Allergies (Unverified , 09/17/17) none Physical Exam Vital Signs Date Time Temp Pulse Resp B/P (MAP) Pulse Ox O2 Delivery O2 Flow Rate FiO2 09/18/17 22:18 90 95 09/18/17 22:03 87 17 93 09/18/17 22:01 130/76 09/18/17 21:48 91 14 94 09/18/17 21:33 85 13 93 09/18/17 21:30 130/80 09/18/17 21:18 81 16 93 09/18/17 21:03 75 17 96 09/18/17 21:00 126/74 09/18/17 20:48 76 13 95 09/18/17 20:43 61 15 96 09/18/17 20:30 103/70 09/18/17 20:28 64 14 93 09/18/17 20:13 63 17 93 Room Air 09/18/17 20:12 67 09/18/17 20:00 111/75 09/18/17 18:31 36.7 86 16 144/75 98 Room Air Physical Exam Vital signs reviewed. General: Well-appearing 27 year old male, laying on abdomen, in some discomfort. HEENT: No scleral icterus, PERRLA. Some discomfort with forward flexion of the neck. Atraumatic. Cardiovascular: Regular rate and rhythm, no extra sounds. Pulmonary: Clear to auscultation bilaterally, normal work of breathing. Abdomen: Soft, nontender, nondistended, positive bowel sounds. Musculoskeletal: Atraumatic, no peripheral edema. Neurologic: Patient awake alert and oriented x 3, full strength in all 4 extremities. Cranial nerves 2 through 12 grossly intact. Skin: Warm, clammy, no rash Medical Decision & Procedures Laboratory Results 09/18/17 19:32 Red Blood Count 4.72, Mean Corpuscular Volume 89.6, Mean Corpuscular Hemoglobin 30.3, Mean Corpuscular Hemoglobin Concent 33.8, Mean Platelet Volume 10.0, Neutrophils (%) (Auto) 70.4, Lymphocytes (%) (Auto) 19.4, Monocytes (%) (Auto) 9.3, Eosinophils (%) (Auto) 0.4, Basophils (%) (Auto) 0.1, Neutrophils # (Auto) 14.08, Lymphocytes # (Auto) 3.87, Monocytes # (Auto) 1.86, Eosinophils # (Auto) 0.08, Basophils # (Auto) 0.01 09/18/17 19:32 Test 09/18/17 19:32 White Blood Count 19.98 K/uL (4.8-10.8) Red Blood Count 4.72 M/uL (4.7-6.1) Hemoglobin 14.3 g/dL (14.0-18.0) Hematocrit 42.3 % (42-52) Mean Corpuscular Volume 89.6 fL (80-100) Mean Corpuscular Hemoglobin 30.3 pg (25-34) Mean Corpuscular Hemoglobin Concent 33.8 g/dl (32-36) Platelet Count 293 K/uL (130-400) Mean Platelet Volume 10.0 fL (7.4-10.4) Neutrophils (%) (Auto) 70.4 % Lymphocytes (%) (Auto) 19.4 % Monocytes (%) (Auto) 9.3 % Eosinophils (%) (Auto) 0.4 % Basophils (%) (Auto) 0.1 % Neutrophils # (Auto) 14.08 K/uL (1.4-6.5) Lymphocytes # (Auto) 3.87 K/uL (1.2-3.4) Monocytes # (Auto) 1.86 K/uL (0.11-0.59) Eosinophils # (Auto) 0.08 K/uL (0-0.5) Basophils # (Auto) 0.01 K/uL (0-0.2) RDW Standard Deviation 41.2 fL (36.4-46.3) RDW Coefficient of Variation 12.7 % (11.5-14.5) Immature Granulocyte % (Auto) 0.4 % Immature Granulocyte # (Auto) 0.08 K/uL (0.00-0.02) Anion Gap 7.0 mmol/L (3-11) Est Creatinine Clear Calc Drug Dose 86.7 ml/min Estimated GFR () 84.9 Estimated GFR (Non- 73.3 BUN/Creatinine Ratio 21.9 (10-20) Calcium Level 9.4 mg/dl (8.5-10.1) Laboratory results per my review. Medications Administered Medications (Trade) Dose Ordered Sig/Demian Route Start Time Stop Time Status Last Admin Dose Admin Caffeine Citrated 500 mg/Sodium Chloride 1,025 ml @ 512.5 mls/ hr NOW STAT IV 09/18/17 19:29 09/18/17 21:28 DC 09/18/17 20:05 512.5 MLS/HR Sodium Chloride 1,000 ml @ 999 mls/hr Q1H1M STAT IV 09/18/17 19:07 12/9/17 20:07 DC 09/18/17 20:05 999 MLS/HR Methylprednisolone Sodium Succinate (Solu-Medrol IV) 125 mg NOW STAT IV 09/18/17 19:10 09/18/17 19:11 DC 09/18/17 20:01 125 MG Hydromorphone HCl (Dilaudid Inj) 1 mg NOW STAT IV 09/18/17 20:55 09/18/17 20:56 DC 09/18/17 21:11 1 MG ED Course 1905: Past medical records reviewed. The patient was evaluated in room B4B. A complete history and physical examination was performed. 1906: NSS 1000 ml @ 999 mls/hr IV. 1909: Solu-Medrol 125 mg IV. 1928: Caffeine Citrated 500 mg/NSS 1025 ml @ 512.5 mls/hr IV. 2054: Dilaudid 1 mg IV. 2134: I reevaluated the patient. He is still in pain. I discussed the risks and benefits associated with a blood patch procedure and he is agreeable. 2139: I discussed the patients case with Dr. Camacho, [facility]. The patient will be further evaluated. Medical Decision Differential diagnosis: Intracranial hemorrhage, intracranial mass, migraine headache, tension headache , sinusitis, meningitis, post lumbar puncture headache. This patient was evaluated and appeared to be in some discomfort. IV access was obtained and laboratory work was drawn. Patient was hydrated with normal saline solution. He was given IV caffeine 500 mg. Patient also received IV Solu-Medrol. He was reevaluated about an hour later with no significant improvement in symptoms. Patient was given IV Dilaudid 1 mg. We had previously discussed the risks and benefits of the blood patch. Patient feels strongly he would prefer to have this procedure done as he does not feel this headache is tolerable. Dr. Camacho of anesthesiology was consulted and will evaluate the patient in the emergency department. Medication Reconcilliation Current Medication List: was personally reviewed by me Blood Pressure Screening Patient's blood pressure: Normal blood pressure Blood pressure disposition: Did not require urgent referral Consults Time Called: 2137 Consulting Physician: Vanessa Childs [facility] Returned Call: [phone] I discussed the patients case with Dr[facility] Camacho [facility]. The patient will be further evaluated. Impression Primary Impression: Headache Additional Impressions: History of lumbar puncture Right otitis media Scribe Attestation The scribe's documentation has been prepared under my direction and personally reviewed by me in its entirety. I confirm that the note above accurately reflects all work, treatment, procedures, and medical decision making performed by me. Departure Information Referrals Rico Limon M.D. (MEDICAL) (PCP) Patient Instructions My [facility] Problem Qualifiers
[2017-09-18] MEDS ORDERED: CAFFEINE CITRATE 500 MG in SODIUM CHLORIDE 0.9% 1000ML 1,000 ML IV STA (19:29)
[2017-09-18 19:45] LABS: BASO % 0.1 %; BASO ABS # 0.01 K/uL (0-0.2); COMPLETE YES; EOS % 0.4 %; HEMATOCRIT 42.3 % (42-52); IG% 0.4 %; LYMPH % 19.4 %; LYMPH ABS # 3.87 K/uL (1.2-3.4); MEAN CELL VOLUME 89.6 fL (80-100); MEAN CORPUSCULAR HEMOGLOBIN 30.3 pg (25-34); MEAN CORPUSCULAR HGB CONC 33.8 g/dl (32-36); MONO % 9.3 %; NEUT % 70.4 %; PLATELET COUNT 293 K/uL (130-400); RED BLOOD COUNT 4.72 M/uL (4.7-6.1); WHITE BLOOD COUNT 19.98 K/uL (4.8-10.8)
[2017-09-18 20:04] LABS: BUN/CREATININE RATIO 21.9 (10-20); CALCIUM 9.4 mg/dl (8.5-10.1); CREATININE 1.33 mg/dl (0.60-1.40); POTASSIUM 3.7 mmol/L (3.5-5.1)
[2017-09-18] MEDS ORDERED: HYDROmorphone INJ 1 MG/ML SYR IV STA (20:55)
[2017-09-18 22:30] VITALS: BP 141/79
[2017-09-18 22:38] VITALS: PULSE 87; O2SAT 92
--- NOTE | 2017-09-18 22:51 | Medical Consult ---
Consultation Date of Consultation: Sep 18, 2017. Attending Physician: Reason for Consultation: Headache History of Present Illness 27 year old male with a history of meningitis 2-3 years ago was seen in the ER initially on 09/14 for earache. At that time he was diagnosed with otitis and discharged with high dose amoxil. He did not improve and returned on 09/17. At this time, he underwent diagnostic lumbar puncture and his antibiotic was changed to a second generation cephalosporin. He also received 1 dose of dexamethasone. This morning, the patient returns with worsening headache which is now positional in nature. He claims that when sitting or standing, his pain is 10/10, when supine, he returns to his original underlying pain level of 6/ 10. He continues to have chills and malaise, but denies fevers. White count has risen from 11.5k yesterday to 19k today with a significant neutrophilia. Of note, the patient does have a history of drug abuse. Past Medical/Surgical History Medical Problems: (1) Acute costochondritis Status: Acute (2) Costochondritis Status: Acute (3) Headache Status: Acute (4) History of lumbar puncture Status: Acute (5) Impacted cerumen of left ear Status: Acute (6) Influenza-like symptoms Status: Acute (7) Otitis media Status: Acute (8) Right otitis media Status: Acute (9) Sinusitis Status: Acute Family History Cancer Diabetes mellitus Gallbladder disease Heart disease Hypertension Kidney disease Kidney stones Seizures Social History Smoking Status: Current Every Day Smoker Drug Use: none Marital Status: in relationship Housing Status: lives with family, lives with significant other Occupation Status: employed Allergies Coded Allergies: No Known Allergies (Unverified , 09/17/17) none Review of Systems Constitutional: + chills Respiratory: + cough Neurologic: No problem reported Physical Exam Date Time Temp Pulse Resp B/P (MAP) Pulse Ox O2 Delivery O2 Flow Rate FiO2 09/18/17 22:18 90 95 09/18/17 22:03 87 17 93 09/18/17 22:01 130/76 09/18/17 21:48 91 14 94 09/18/17 21:33 85 13 93 09/18/17 21:30 130/80 09/18/17 21:18 81 16 93 09/18/17 21:03 75 17 96 09/18/17 21:00 126/74 09/18/17 20:48 76 13 95 09/18/17 20:43 61 15 96 09/18/17 20:30 103/70 09/18/17 20:28 64 14 93 09/18/17 20:13 63 17 93 Room Air 09/18/17 20:12 67 09/18/17 20:00 111/75 09/18/17 18:31 36.7 86 16 144/75 98 Room Air General Appearance: no apparent distress Respiratory/Chest: lungs clear Cardiovascular: regular rate, rhythm Laboratory Results Last 24 Hours Test 09/18/17 19:32 White Blood Count 19.98 K/uL Red Blood Count 4.72 M/uL Hemoglobin 14.3 g/dL Hematocrit 42.3 % Mean Corpuscular Volume 89.6 fL Mean Corpuscular Hemoglobin 30.3 pg Mean Corpuscular Hemoglobin Concent 33.8 g/dl Platelet Count 293 K/uL Mean Platelet Volume 10.0 fL Neutrophils (%) (Auto) 70.4 % Lymphocytes (%) (Auto) 19.4 % Monocytes (%) (Auto) 9.3 % Eosinophils (%) (Auto) 0.4 % Basophils (%) (Auto) 0.1 % Neutrophils # (Auto) 14.08 K/uL Lymphocytes # (Auto) 3.87 K/uL Monocytes # (Auto) 1.86 K/uL Eosinophils # (Auto) 0.08 K/uL Basophils # (Auto) 0.01 K/uL RDW Standard Deviation 41.2 fL RDW Coefficient of Variation 12.7 % Immature Granulocyte % (Auto) 0.4 % Immature Granulocyte # (Auto) 0.08 K/uL Sodium Level 138 mmol/L Potassium Level 3.7 mmol/L Chloride Level 105 mmol/L Carbon Dioxide Level 27 mmol/L Anion Gap 7.0 mmol/L Blood Urea Nitrogen 29 mg/dl Creatinine 1.33 mg/dl Est Creatinine Clear Calc Drug Dose 86.7 ml/min Estimated GFR () 84.9 Estimated GFR (Non- 73.3 BUN/Creatinine Ratio 21.9 Random Glucose 108 mg/dl Calcium Level 9.4 mg/dl Assessment & Plan I do believe that this patient has some degree of PDPH in addition to his underlying headache which appears to be likely due to Acute OM or sinusitis. His antibiotics were changed yesterday and the patient seems to only be experiencing minimal relief from his acute illness. Yesterday's CSF analysis rules out current meningitis. I discussed with the patient that while I do think that an epidural blood patch would be of benefit for his positional headache, he appears to have a insufficiently treated infection at this point in time. Given his current illness and history of meningitis, although the absolute risk of seeding meningitis through this procedure is low, I think the risk is unacceptable at this time. I would recommend that he continue conservative treatment including pain control and his new antibiotics and if the positional aspect to his headache still persists in 3-4 days but his acute illness is improving, we can patch him at that time. The patient is understanding and in agreement with this plan. I have also discussed this plan with the attending ED physician caring for the patient. Thank you for the consult.
[2017-09-18] MEDS ORDERED: NORCO 5/325MG HOME PACK PO ONE (23:00)
== END 2017-09-18 22:52 | disposition home or self-care (01) ==
LOC: C.EDB 18:29
DX: H66.91 Otitis media, unspecified, right ear (principal); G97.1 Other reaction to spinal and lumbar puncture; Z83.3 Family history of diabetes mellitus; Z80.9 Family history of malignant neoplasm, unspecified; Z82.49 Family history of ischemic heart disease and other diseases of the circulatory system; Z82.0 Family history of epilepsy and other diseases of the nervous system; Z87.442 Personal history of urinary calculi; F17.210 Nicotine dependence, cigarettes, uncomplicated; F41.9 Anxiety disorder, unspecified; J45.909 Unspecified asthma, uncomplicated; Z79.899 Other long term (current) drug therapy

== ENCOUNTER 2018-02-18 10:55 | Emergency (ER) | payer OTHER ==
[~2018-02-18] VITALS: Ht 167.6 cm; Wt 88.9 kg
[~2018-02-18 10:55] MED LIST changes: -CEFD300C2 PO
[2018-02-18 10:59] VITALS: TEMP 36.8; Ht 167.6 cm; Wt 88.9 kg
[2018-02-18] MEDS ORDERED: METHYLPREDNISOLONE 125 MG VIAL IV STA (11:11)
[2018-02-18] MEDS ORDERED: ALBUT/IPRATROP 3MG/0.5MG NEB 3 ML VIAL INH STA ×2 (11:11→12:32)
--- NOTE | 2018-02-18 11:19 | EMERGENCY ROOM VISIT NOTE ---
History First contact with patient: 11:03 Chief Complaint: SHORTNESS OF BREATH Stated Complaint: TROUBLE BREATHING History of Present Illness The patient is a 27 year old male who presents to the Emergency Room with complaints of dyspnea and wheezing associated with an asthma flareup. The symptoms began last evening. The patient states overnight, he used his albuterol nebulizers approximately 5 times. His last nebulizer treatment was at approximately 6 AM. 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 His boss brought him to the emergency department for evaluation. The patient does admit to some mild dizziness and coughing, and 2 days ago he was experiencing a sore, itchy throat and runny nose, however those symptoms have improved. He denies any chest pain or history of blood clots. He denies any recent travel or surgery. The patient states his last asthma flareup was approximately 1 year ago. He was seen here and states he was given a breathing treatment and monitored for short time. He does follow with Dr. Limon in [facility], but states it has been "quite a while" since he was there last for an asthma follow-up. He does not take any daily medications, but uses albuterol regularly for his asthma. He denies leg swelling, fever, chills, nausea, vomiting, palpitations, abdominal pain, recent injury, or other associated symptoms. Review of Systems A complete 10 point review of systems was reviewed with the patient with pertinent positives and negatives as per history of present illness. All else were negative. Past Medical/Surgical History Medical Problems: (1) Anxiety (2) Asthma (3) H/O drug abuse (4) Hx of meningitis (5) Clemente's angina (6) Mass of left submandibular region (7) Seasonal allergic conjunctivitis Surgical Problems: (1) H/O esophagogastroduodenoscopy Family History Cancer Diabetes mellitus Gallbladder disease Heart disease Hypertension Kidney disease Kidney stones Seizures Social History Smoking Status: Current Some Day Smoker Alcohol Use: occasionally Drug Use: none Marital Status: in relationship Housing Status: lives with family, lives with significant other Occupation Status: employed Current/Historical Medications Scheduled Albuterol Hfa (Ventolin Hfa), 2 PUFFS INH QID Montelukast Sodium (Singulair), 1 TAB PO DAILY Prednisone (Prednisone), 0 PO DAILY Scheduled PRN Albuterol Hfa (Ventolin Hfa), 2 PUFFS INH Q6H PRN for SOB/Wheezing Ipratropium-Albuterol (Duoneb), 1 TREATMENT INH Q4H PRN for Wheezing Physical Exam Vital Signs Date Time Temp Pulse Resp B/P (MAP) Pulse Ox O2 Delivery O2 Flow Rate FiO2 02/18/18 14:09 97 16 150/97 94 Room Air 02/18/18 13:00 90 22 133/93 100 02/18/18 12:49 96 16 94 Room Air 02/18/18 12:17 107 02/18/18 11:35 110 20 124/87 95 Room Air 02/18/18 11:32 95 Room Air 02/18/18 10:59 36.8 117 22 123/84 93 Room Air Physical Exam VITALS: Vitals are noted on the nurse's note and reviewed by myself. Vital signs stable. GENERAL: This is a 27-year-old white male, in no acute distress, nondiaphoretic , well-developed well-nourished. SKIN: The skin was without rashes, erythema, edema, or bruising. There is no tenting of the skin. Capillary reflex less than 2 seconds. HEAD: Normocephalic atraumatic. EARS: External auditory canals clear, tympanic membranes pearly baum without erythema or effusion bilaterally. EYES: Pupils equal round and reactive to light and accommodation. Conjunctivae without injection, sclerae without icterus. Extraocular movements intact. NOSE: Patent, turbinates without inflammation or discharge. No sinus tenderness. MOUTH: Mucous membranes moist. Tonsils are not enlarged. Pharynx without erythema or exudate. Uvula midline. Airway patent. Tongue does not deviate. NECK: Supple without nuchal rigidity. No lymphadenopathy. No thyromegaly. Cervical spine is nontender. No JVD. HEART: Regular rate and rhythm without murmurs gallops or rubs. LUNGS: Diffuse wheezing throughout. No obvious rales or rhonchi noted. No dullness to percussion. No retractions, however the patient is using accessory muscles. ABDOMEN: Positive bowel sounds x 4. Normal tympanic percussion. Soft, nontender, without masses or organomegaly. Griffith sign negative. No guarding or rebound tenderness. MUSCULOSKELETAL: No muscle atrophy, erythema, or edema noted. Full range of motion without joint tenderness in all extremities. No tenderness to palpation. Normal gait. Strength 5/5 throughout. NEURO: Patient was alert and oriented to person place and time. Normal sensation to light and sharp touch. Deep tendon reflexes 2+ throughout. No focal neurological deficits. Medical Decision & Procedures ER Provider Diagnostic Interpretation: CHEST 2 VIEWS ROUTINE CLINICAL HISTORY: dyspnea, wheezing dyspnea COMPARISON STUDY: 09/07/2017 FINDINGS: The bones soft tissues and hemidiaphragms are normal. The cardiomediastinal silhouette is normal. The lungs are clear. The pulmonary vasculature is normal. IMPRESSION: Negative chest. The above report was generated using voice recognition software. It may contain grammatical, syntax or spelling errors. Electronically signed by: Saulo Lawson M.D. 02/18/2018 12:02 PM Dictated Date/Time: 02/18/2018 11:57 AM Laboratory Results 02/18/18 11:06 Red Blood Count 5.21, Mean Corpuscular Volume 86.2, Mean Corpuscular Hemoglobin 30.7, Mean Corpuscular Hemoglobin Concent 35.6, Mean Platelet Volume 10.0, Neutrophils (%) (Auto) 70.4, Lymphocytes (%) (Auto) 18.5, Monocytes (%) (Auto) 5.4, Eosinophils (%) (Auto) 5.4, Basophils (%) (Auto) 0.1, Neutrophils # (Auto) 9.73, Lymphocytes # (Auto) 2.56, Monocytes # (Auto) 0.75, Eosinophils # (Auto) 0.75, Basophils # (Auto) 0.02 02/18/18 11:06 Test 02/18/18 11:06 White Blood Count 13.84 K/uL (4.8-10.8) Red Blood Count 5.21 M/uL (4.7-6.1) Hemoglobin 16.0 g/dL (14.0-18.0) Hematocrit 44.9 % (42-52) Mean Corpuscular Volume 86.2 fL (80-100) Mean Corpuscular Hemoglobin 30.7 pg (25-34) Mean Corpuscular Hemoglobin Concent 35.6 g/dl (32-36) Platelet Count 315 K/uL (130-400) Mean Platelet Volume 10.0 fL (7.4-10.4) Neutrophils (%) (Auto) 70.4 % Lymphocytes (%) (Auto) 18.5 % Monocytes (%) (Auto) 5.4 % Eosinophils (%) (Auto) 5.4 % Basophils (%) (Auto) 0.1 % Neutrophils # (Auto) 9.73 K/uL (1.4-6.5) Lymphocytes # (Auto) 2.56 K/uL (1.2-3.4) Monocytes # (Auto) 0.75 K/uL (0.11-0.59) Eosinophils # (Auto) 0.75 K/uL (0-0.5) Basophils # (Auto) 0.02 K/uL (0-0.2) RDW Standard Deviation 40.5 fL (36.4-46.3) RDW Coefficient of Variation 12.7 % (11.5-14.5) Immature Granulocyte % (Auto) 0.2 % Immature Granulocyte # (Auto) 0.03 K/uL (0.00-0.02) Anion Gap 6.0 mmol/L (3-11) Est Creatinine Clear Calc Drug Dose 118.1 ml/min Estimated GFR () 121.3 Estimated GFR (Non- 104.7 BUN/Creatinine Ratio 9.2 (10-20) Calcium Level 9.2 mg/dl (8.5-10.1) Total Bilirubin 0.5 mg/dl (0.2-1) Aspartate Amino Transf (AST/SGOT) 19 U/L (15-37) Alanine Aminotransferase (ALT/SGPT) 27 U/L (12-78) Alkaline Phosphatase 108 U/L (45-117) Total Protein 8.1 gm/dl (6.4-8.2) Albumin 4.5 gm/dl (3.4-5.0) Globulin 3.6 gm/dl (2.5-4.0) Albumin/Globulin Ratio 1.3 (0.9-2) Medications Administered Medications (Trade) Dose Ordered Sig/Demian Route Start Time Stop Time Status Last Admin Dose Admin Methylprednisolone Sodium Succinate (Solu-Medrol IV) 125 mg NOW STAT IV 02/18/18 11:11 02/18/18 11:14 DC 02/18/18 11:32 125 MG Albuterol/ Ipratropium (Duoneb) 3 ml NOW STAT INH 02/18/18 11:11 02/18/18 11:14 DC 02/18/18 11:21 3 ML Albuterol/ Ipratropium (Duoneb) 12 ml ONE STAT INH 02/18/18 12:32 02/18/18 12:34 DC 02/18/18 12:49 12 ML ED Course The patient was seen and evaluated as above. IV access obtained, labs drawn. The patient was given a DuoNeb treatment and 125 mg Solu-Medrol IV. Chest x-ray performed and reviewed by myself and radiologist as above. The patient was reassessed. I discussed the findings of all labs. He states he initially felt better after the treatment, however began worsening. The patient was given an hour-long DuoNeb treatment. The patient was reassessed. He states he feels much better. His breathing continues to remain wheezy, however there is slightly less wheezing in his lungs on auscultation. The patient does feel well enough for discharge. Discharge instructions reviewed, patient was discharged home in good condition. Medical Decision This is a 27-year-old male patient presents to the emergency department today complaining of an asthma exacerbation. He states the flareup began last evening. He has been using regular albuterol nebulizer treatments without improvement in his symptoms. While at work today, his symptoms began worsening. He does report some dizziness and coughing associated with the exacerbation. His symptoms did improve with the DuoNeb treatment and Solu- Medrol initially, however began worsening within a proximally 30 minutes. The patient was given an hour-long DuoNeb treatment, and upon reassessment his airways sounded clearer and he was feeling much better. Labs did not reveal any significant leukocytosis, anemia, thrombocytopenia. The patient's white blood cell count was slightly elevated at 13.8. I suspect this is related to the dyspnea and anxiety associated with asthma exacerbation. The patient's hepatic and renal function were without abnormalities. Electrolytes without significant abnormalities. Chloride slightly elevated at 108. The patient's symptoms improved significantly with DuoNeb treatments here in the emergency department. He will be discharged home on prednisone, duo nebs, and Singulair. He was encouraged to return immediately to the emergency department for any worsening symptoms. He was also advised that he must follow-up with his PCP on Wednesday for reevaluation. I discussed with the patient that he may need to consider daily maintenance inhalers, especially through the spring season, as I suspect an allergic component to the patient's symptoms. Patient verbalized understanding. All questions answered to patient's satisfaction. I did discuss the case with Dr. Gee. He was in agreement with the assessment and plan. Differential diagnosis includes asthma exacerbation, pneumonia, bronchitis, infection, electrolyte abnormality, cardiac etiology, PE, malignancy, and others The chart was completed utilizing [employer] Speech voice recognition software. Grammatical errors, random word insertions, pronoun errors, and incomplete sentences are an occasional consequence of this system due to software limitations, ambient noise, and hardware issues. Any formal questions or concerns about the content, text, or information contained within the body of this dictation should be directly addressed to the provider for clarification. Medication Reconcilliation Current Medication List: was personally reviewed by me Blood Pressure Screening Patient's blood pressure: Elevated blood pressure Blood pressure disposition: Elevated BP felt to be situational Impression Primary Impression: Asthma with exacerbation Departure Information Dispostion Home / Self-Care Condition GOOD Prescriptions Ipratropium-Albuterol (DUONEB) 3 Ml Nebu 1 TREATMENT INH Q4H Y for Wheezing, #1 BOX Prov: Darline Benedict PA-C 02/18/18 Prednisone (Prednisone) 20 Mg Tab 0 PO DAILY, #18 TAB 3 DAILY FOR 3 DAYS, THEN 2 DAILY FOR 3 DAYS, THEN 1 DAILY FOR 3 DAYS. Prov: Darline Benedict PA-C 02/18/18 Albuterol Hfa (VENTOLIN HFA) 200 Puffs/91257 Mcg Aers 2 PUFFS INH QID, #1 INHALER Prov: Darline Benedict PA-C 02/18/18 Montelukast Sodium (SINGULAIR) 10 Mg Tab 1 TAB PO DAILY, #30 TAB Prov: Darline Benedict PA-C 02/18/18 Referrals Rico Limon M.D. (MEDICAL) (PCP) Patient Instructions Asthma Dc, ED Bronchitis Asthmatic, [facility] Additional Instructions You were seen in the emergency department today for an asthma exacerbation. Your symptoms were managed with IV steroids and DuoNeb breathing treatments. Use albuterol inhaler/nebulizer as directed. You may alternate albuterol treatments with DuoNeb treatments. You should not have more than 1 albuterol dose every 4 hours. If you require increased albuterol, you should return to the ED or your PCP for re-evaluation. You have been prescribed Prednisone. This is a steroid which will help decrease your inflammation in your lungs and help with breathing. Take this medicine as prescribed. Take the ENTIRE 9 day course. It is best to take steroids early in the morning as PM dosing can affect your sleeping patterns. Take Singulair as directed. As discussed, I suspect an allergic component to your asthma exacerbation, as it seems to have worsened in the spring time. You should take 10 mg daily. I do recommend taking this medication at night, as it can make you fatigued. Ibuprofen(Motrin, Advil) may be used for fever or pain. Use 600mg every six hours as needed. Take with food. Avoid using more than 2400mg in a 24 hour period. Do not use 2400mg per day for more than three consecutive days without physician direction. Prolonged inappropriate use can lead to stomach upset or ulcers. (AND/OR) Acetaminophen(Tylenol) may be used for fever or pain. Use 1000mg every six hours as needed. Avoid using more than 3000mg in a 24 hour period. Follow-up with your primary care provider tomorrow or Wednesday for reevaluation. It is imperative that you follow-up with your PCP. As discussed, I suspect you may need a more consistent treatment with regular inhalers. Return immediately to the emergency department for any worsening dyspnea, chest pain, headache, dizziness, inability to breathe, cough, fevers, or other concerning symptoms. Problem Qualifiers Primary Impression: Asthma with exacerbation Asthma severity: moderate Asthma persistence: persistent Qualified Codes: J45.41 - Moderate persistent asthma with (acute) exacerbation
[2018-02-18 11:32] VITALS: O2SAT 95
[2018-02-18 11:36] LABS: BASO % 0.1 %; BASO ABS # 0.02 K/uL (0-0.2); EOS % 5.4 %; EOS ABS # 0.75 K/uL (0-0.5); HEMATOCRIT 44.9 % (42-52); IG# 0.03 K/uL (0.00-0.02); LYMPH % 18.5 %; LYMPH ABS # 2.56 K/uL (1.2-3.4); MEAN CELL VOLUME 86.2 fL (80-100); MEAN CORPUSCULAR HEMOGLOBIN 30.7 pg (25-34); MEAN CORPUSCULAR HGB CONC 35.6 g/dl (32-36); MONO % 5.4 %; MONO ABS # 0.75 K/uL (0.11-0.59); NEUT % 70.4 %; NEUT ABS # 9.73 K/uL (1.4-6.5); PLATELET COUNT 315 K/uL (130-400); RED CELL DISTRIBUTION WIDTH CV 12.7 % (11.5-14.5); RED CELL DISTRIBUTION WIDTH SD 40.5 fL (36.4-46.3); WHITE BLOOD COUNT 13.84 K/uL (4.8-10.8)
[2018-02-18 11:57] LABS: ALBUMIN 4.5 gm/dl (3.4-5.0); CALCIUM 9.2 mg/dl (8.5-10.1); CREATININE 0.99 mg/dl (0.60-1.40)
[2018-02-18 11:59] LABS: TOTAL PROTEIN 8.1 gm/dl (6.4-8.2)
--- NOTE | 2018-02-18 12:04 | DIAGNOSTIC IMAGING REPORT ---
CHEST 2 VIEWS ROUTINE CLINICAL HISTORY: dyspnea, wheezing dyspnea COMPARISON STUDY: 09/07/2017 FINDINGS: The bones soft tissues and hemidiaphragms are normal. The cardiomediastinal silhouette is normal. The lungs are clear. The pulmonary vasculature is normal. IMPRESSION: Negative chest. The above report was generated using voice recognition software. It may contain grammatical, syntax or spelling errors. Electronically signed by: Saulo Lawson M.D. 02/18/2018 12:02 PM Dictated Date/Time: 02/18/2018 11:57 AM
[2018-02-18 12:49] VITALS: PULSE 96; O2SAT 94
[2018-02-18] MEDS ORDERED: MONT1TAB3 PO (14:02)
[2018-02-18] MEDS ORDERED: VNTHFA/IN INH (14:02)
[2018-02-18] MEDS ORDERED: IPRASOL4 INH (14:02)
[2018-02-18] MEDS ORDERED: PRED20TA PO (14:02)
[2018-02-18 14:09] VITALS: BP 150/97; PULSE 97; O2SAT 94
== END 2018-02-18 14:35 | disposition home or self-care (01) ==
LOC: C.EDB 10:56 → C.EDA 14:35
DX: J45.901 Unspecified asthma with (acute) exacerbation (principal); R03.0 Elevated blood-pressure reading, without diagnosis of hypertension; D72.829 Elevated white blood cell count, unspecified; R42 Dizziness and giddiness; R05 Cough; Z72.0 Tobacco use; Z79.899 Other long term (current) drug therapy

== ENCOUNTER 2018-05-31 13:27 | Emergency (ER) | payer OTHER ==
[~2018-05-31] VITALS: Ht 167.6 cm; Wt 88.0 kg
[~2018-05-31 13:27] MED LIST changes: +IPRA-64 INH; +PRED20TA PO; -ZLF/50 PO
[2018-05-31 13:33] VITALS: TEMP 36.7; Ht 167.6 cm; Wt 88.0 kg
--- NOTE | 2018-05-31 14:23 | DIAGNOSTIC IMAGING REPORT ---
R WRIST W/NAVICULAR MIN 3 VIEWS HISTORY: 28 years-old Male R wrist pain acute right-sided wrist pain without reported trauma COMPARISON: None available TECHNIQUE: 5 views of the right wrist FINDINGS: No acute fracture, dislocation, significant changes or opaque foreign body. Specifically, the scaphoid appears intact. IMPRESSION: No acute fracture. The above report was generated using voice recognition software. It may contain grammatical, syntax or spelling errors. Electronically signed by: Phani De La Cruz M.D. 05/31/2018 2:22 PM Dictated Date/Time: 05/31/2018 2:20 PM
--- NOTE | 2018-05-31 14:28 | EMERGENCY ROOM VISIT NOTE ---
History First contact with patient: 13:36 Chief Complaint: WRIST PAIN Stated Complaint: PROBLEMS WITH RIGHT WRIST History of Present Illness The patient is a 28 year old male who presents to the Emergency Room via private vehicle with complaints of "problems with right wrist". The patient notes that he has been experiencing ongoing wrist pain of the right wrist for the past month. He notes it is off and on and worse with movement. He notes that he has a history of break to this extremity was not casted. He was unsure what type of fracture. He notes it was from punching a wall. He rates the current pain is a 5/10. He states the past 2 days have been worse than the past month noting that he was carrying a 5 gallon bucket of finish recently. He notes he is right-handed. 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 He tried Tylenol today with no relief. No fevers or chills. Review of Systems A complete 6-point Review of Systems was discussed with the patient, with pertinent positives and negatives listed in the History of Present Illness. All remaining Review of Systems questions can be considered negative unless otherwise specified. Past Medical/Surgical History Medical Problems: (1) Anxiety (2) Asthma (3) H/O drug abuse (4) Hx of meningitis (5) Clemente's angina (6) Mass of left submandibular region (7) Seasonal allergic conjunctivitis Surgical Problems: (1) H/O esophagogastroduodenoscopy Family History Cancer Diabetes mellitus Gallbladder disease Heart disease Hypertension Kidney disease Kidney stones Seizures Social History Smoking Status: Current Every Day Smoker Alcohol Use: occasionally Drug Use: none Marital Status: in relationship Housing Status: lives with family, lives with significant other Occupation Status: employed Current/Historical Medications Scheduled PRN Albuterol Hfa (Ventolin Hfa), 2 PUFFS INH Q6H PRN for SOB/Wheezing Physical Exam Vital Signs Date Time Temp Pulse Resp B/P (MAP) Pulse Ox O2 Delivery O2 Flow Rate FiO2 05/31/18 15:06 83 18 130/86 95 05/31/18 13:33 36.7 83 16 177/100 96 Room Air Physical Exam VITAL SIGNS - Vital signs and nursing notes were reviewed. Hypertensive. Afebrile. GENERAL -28-year-old male appearing his stated age who is in no acute distress. Communicates well with provider and answers questions appropriately. SKIN - Without rashes. No meningeal or petechial rash. The skin overlying the right hand, right wrist and right arm is unremarkable. No erythema, edema or bony deformity. EXTREMITIES - No clubbing or peripheral cyanosis. No pretibial edema present. Negative Tinel's. Negative Phalen's. Patient notes increased pain with extension at the right wrist. No navicular tenderness. No step-off. +5/5 strength noted in UE/LE bilaterally. He is neurovascularly intact in the right upper extremity. No tenderness of the right hand or right forearm except for the right wrist. It is diffusely about the right wrist on the medial and lateral aspects. Medical Decision & Procedures ER Provider Diagnostic Interpretation: R WRIST W/NAVICULAR MIN 3 VIEWS HISTORY: 28 years-old Male R wrist pain acute right-sided wrist pain without reported trauma COMPARISON: None available TECHNIQUE: 5 views of the right wrist FINDINGS: No acute fracture, dislocation, significant changes or opaque foreign body. Specifically, the scaphoid appears intact. IMPRESSION: No acute fracture. The above report was generated using voice recognition software. It may contain grammatical, syntax or spelling errors. Electronically signed by: Phani De La Cruz M.D. 05/31/2018 2:22 PM Dictated Date/Time: 05/31/2018 2:20 PM Medical Decision Patient was seen and evaluated as above in room D2. Review was performed of nursing notes and vital signs. After obtaining a thorough history and physical examination the above work up was performed. He presents to us today with right wrist pain. It is been going on for quite some time. He is nontoxic on examination. X-ray was obtained with results as above. I suspect this is likely a sprain/overuse of the right wrist. I will recommend wrist lacer. He is to perform light duty activities at work and follow with the family doctor/ orthopedics. He is to return with worsening. The patient was educated upon management, educated upon todays findings/results, educated upon symptoms in which to return, had questions answered prior to discharge, and was discharged home in good condition. In the evaluation and treatment of this patient, the following differential diagnoses were considered: Wrist Sprain, Wrist Fracture, Wrist Dislocation, Scapholunate Dissociation, Carpal Fracture, Metacarpal Fracture, Radial Styloid Process Fracture, Ulnar Styloid Process Fracture, or Carpal Tunnel Syndrome. Impression Primary Impression: Wrist pain, right Departure Information Dispostion Home / Self-Care Condition GOOD Referrals Michael Cody M.D. (PCP) Toby Paul, DO Patient Instructions My [facility] Additional Instructions You have been treated in the Emergency Department for Wrist Pain. For pain control, you can use the following [id number] medicines (if >12 yo): - Regular strength (325mg/tab) Tylenol (acetaminophen) 2 tabs every 4-6 hours as needed. Do not exceed 12 tablets in a 24 hour period. Avoid taking more than 3 grams (3000 mg) of Tylenol per day. This includes any other sources of acetaminophen you may take on a regular basis. - Regular strength (200 mg/tab) Advil (ibuprofen) 1-2 tabs every 4-6 hours as needed. Do not exceed a dose of 3200 mg per day. If this is a recent injury (<24 hrs), ice can be applied to the area of pain for the first 3 days to help decrease pain and inflammation. You have been provided the number for an Orthopaedic Surgeon. You should call this number as soon as possible to establish a follow-up visit from today's Emergency Department visit. Keep the brace/splint in place until evaluated by Orthopedics. Return to the Emergency Department if your current symptoms worsen despite treatment course outlined above, or if you develop any of the following symptoms : intractable pain despite aforementioned treatment course or new onset of numbness or tingling of the fingers.
[2018-05-31 15:06] VITALS: BP 130/86; PULSE 83; O2SAT 95
== END 2018-05-31 15:20 | disposition home or self-care (01) ==
LOC: C.EDB 13:29 → C.EDD 15:20
DX: M25.531 Pain in right wrist (principal); Z87.81 Personal history of (healed) traumatic fracture; F41.9 Anxiety disorder, unspecified; J45.909 Unspecified asthma, uncomplicated; F17.210 Nicotine dependence, cigarettes, uncomplicated

== ENCOUNTER 2022-04-15 10:50 | Inpatient (IN) ==
--- NOTE | 2022-04-15 11:33 | Emergency Department Note ---
Impression & Plan Suicidal ideations, Mood disorder ED Provider Note NAME: MAGDALENA LARES AGE: 31 SEX: M : 1990 ARRIVES VIA: Walk-In INFORMANT: Patient ED PROVIDER(S): Néstor Gee DO CHIEF COMPLAINT: Suicidal thoughts HPI: Patient is a 31-year-old male with past medical history of asthma, anxiety and depression and previous drug use several years ago who presents to the ER for suicidal thoughts. He notes he has been thinking about killing himself for the past month. He has 2 separate plans 1 of which includes crashing his car to kill himself or overdosing on heroin which he used to use several years ago. He denies any headache or change in vision. No chest pain or shortness of breath. No nausea, vomiting or diarrhea. No dysuria, urgency or frequency. No recent alcohol use. No other exacerbating or remitting factors. He does want to come in to get help. Most of his depression and anxiety focuses around marital issues and previous infidelity. ROS: See above HPI for pertinent positives & negatives. A total of 10 systems reviewed and were otherwise negative. PAST MEDICAL HISTORY:See Below PAST SURGICAL HISTORY:See Below FAMILY HISTORY:See Below SOCIAL HISTORY:See Below HOME MEDICATIONS:See Below ALLERGIES:See Below VITALS:See Below PHYSICAL EXAMINATION: GENERAL: Sitting up in bed, alert, well appearing, well nourished, no distress, non-toxic EYE EXAM: normal conjunctiva. OROPHARYNX: no exudate, no erythema, lips, buccal mucosa, and tongue normal and mucous membranes are moist NECK: supple, no nuchal rigidity, no adenopathy, non-tender LUNGS: Clear to auscultation. Normal chest wall mechanics HEART: no murmurs, S1 normal and S2 normal ABDOMEN: abdomen soft, non-tender, normo-active bowel sounds, no masses, no rebound or guarding. UPPER EXTREMITIES: upper extremities are grossly normal. LOWER EXTREMITIES: No pitting edema. NEURO EXAM: Normal sensorium, cranial nerves II-XII grossly intact, normal speech, no gross weakness of arms, no gross weakness of legs. PAYXH: admits to suicidal ideations with a clear plan MEDICAL DECISION MAKING: Patient is a 31-year-old male who admits to suicidal ideation with a plan to kill himself. Work was obtained and showed no significant leukocytosis or anemia. BMP along with LFTs bilirubin and TSH was unremarkable. UA was clean. Tox was negative. Alcohol and COVID were negative. Patient was seen and evaluated by 3 S. while being observed in the ER and admitted for further work- up on a 201. Start Time: 1120 Reason: Patient with PMHx of depression underwent ED Observation for psychiatric evaluation and placement. Fam Hx: Psychiatric issues SocHx: See Below Assessment(s): Evaluated multiple times Summary: As described above in MDM Disposition: 04/15/2022 at 1900 Total Time: 8hrs Triage Nursing notes reviewed. Limited review of prior medical records performed Vital Signs: reviewed and remarkable for HTN Differential diagnosis: Mood disorder, infection, hypoglycemia, electrolyte abnormalities, cardiac sources, intracerebral event, toxicologic, trauma, neurologic, as well as other pathologies. ER treatment provided: See below Diagnostics interpreted by me: ECG: none Laboratory studies: As stated above and show below. Imaging studies: See below Consultation(s): none Procedures: none Critical Care: None Past Med/Surg History Medical History (Updated 04/15/22 @ 19:05 by Néstor Gee DO) Anxiety Asthma (03/13/13) Asthma exacerbation H/O drug abuse "Denies heroin use since 2013 " Hx of meningitis "Kirsten. Had seizures with this.-Resolved, no longer follows with neurology " Seasonal allergic conjunctivitis (03/13/13) Surgical History H/O esophagogastroduodenoscopy Family History Other No pertinent family history in first degree relatives Social History Smoking Status: Former smoker Preferred Language: Pashto Feels Safe at Home: Yes Allergies Allergies Allergy/AdvReac Type Severity Reaction Status Date / Time No Known Allergies Allergy Verified 02/12/22 08:54 Home Meds Home Medications Medication Instructions Recorded Confirmed albuterol sulfate 90 mcg/actuation 2 puff INHALATION Q6H PRN 12/07/18 04/15/22 aerosol inhaler (Ventolin HFA) ipratropium 0.5 mg-albuterol 3 mg 3 ml INHALATION DIRECTED PRN 09/27/21 04/15/22 (2.5 mg base)/3 mL nebulization soln montelukast 10 mg tablet 10 mg PO QAM 09/27/21 04/15/22 Results & Data (ED) Vital Signs Vital Signs - 24 hr 04/15/22 11:01 04/15/22 12:52 Temperature 36.9 C Temperature Source Oral Pulse Rate 88 Pulse Rate [Apical] 76 Respiratory Rate 18 16 Respiratory Effort / Characteristics Non-Labored Spontaneous Non-Labored Spontaneous Respiratory Depth Normal Normal Respiratory Pattern Regular Regular Blood Pressure 149/102 H Blood Pressure [Right Arm] 132/97 Blood Pressure Mean 117 Blood Pressure Mean [Right Arm] 108 Blood Pressure Position Sitting Blood Pressure Position [Right Arm] Lying Pulse Oximetry 96 95 Oxygen Delivery Method Room Air Room Air Sepsis New/Unexplained Change in Mental Status N/A Sepsis Action Taken by Nursing No Action Required Laboratory Data Result diagrams: 04/15/22 11:46 04/15/22 11:46 Lab Results 04/15/22 04/15/22 04/15/22 Range/Units 11:46 11:46 11:46 WBC 9.13 (4.8-10.8) K/ul RBC 5.48 (4.63-6.08) M/uL Hgb 16.2 (14.0-18.0) g/dl Hct 48.5 (40.1-51.0) % MCV 88.5 (80.0-100.0) fL MCH 29.6 (25.0-34.0) pg MCHC 33.4 (32.0-36.0) g/dL RDW Std Deviation 41.0 (36.4-46.3) fL RDW Coeff of Jen 12.7 (11.5-14.5) % Plt Count 316 (130-400) K/uL MPV 9.8 (9.4-12.4) fL Immature Gran % (Auto) 0.2 % Neut % (Auto) 59.5 % Lymph % (Auto) 22.3 % Cowley % (Auto) 7.2 % Eos % (Auto) 10.3 % Baso % (Auto) 0.5 % Neut # (Auto) 5.42 (1.4-6.5) K/uL Lymph # (Auto) 2.04 (1.2-3.4) K/uL Cowley # (Auto) 0.66 (0.24-0.82) K/uL Eos # (Auto) 0.94 H (0-0.50) K/uL Baso # (Auto) 0.05 (0-0.2) K/uL Immature Gran # (Auto) 0.02 (0.00-0.02) K/uL Sodium 139 (136-145) mmol/L Potassium 4.6 (3.5-5.1) mmol/L Chloride 106 (98-107) mmol/L Carbon Dioxide 27 (21-32) mmol/L Anion Gap 6 (3-11) BUN 15 (6-23) mg/dl Creatinine 1.04 (0.6-1.4) mg/dl Est Cr Clr Drug Dosing 111.6 ml/min Est GFR ( Amer) 111.1 ml/min Est GFR (Non-Af Amer) 95.9 ml/min BUN/Creatinine Ratio 14.4 (10-20) Glucose 99 (70-99(Fasting)) mg/dl Calcium 9.3 (8.5-10.1) mg/dl Total Bilirubin 0.5 (0.2-1.0) mg/dl AST 14 (13-39) U/L ALT 18 (7-52) U/L Alkaline Phosphatase 76 (34-104) U/L Total Protein 7.0 (6.0-8.3) gm/dl Albumin 4.4 (3.4-5.0) gm/dl Globulin 2.6 (2.5-4.0) gm/dl Albumin/Globulin Ratio 1.7 (0.9-2) TSH 1.067 (0.300-4.500) uIu/ml Salicylates (3.0-30) mg/dl Acetaminophen (10-30) ug/ml Ethyl Alcohol mg/dL (<10.0) mg/dl SARS-CoV-2, RNA, NAAT (NEGATIVE) 04/15/22 04/15/22 04/15/22 Range/Units 11:46 11:46 12:06 WBC (4.8-10.8) K/ul RBC (4.63-6.08) M/uL Hgb (14.0-18.0) g/dl Hct (40.1-51.0) % MCV (80.0-100.0) fL MCH (25.0-34.0) pg MCHC (32.0-36.0) g/dL RDW Std Deviation (36.4-46.3) fL RDW Coeff of Jen (11.5-14.5) % Plt Count (130-400) K/uL MPV (9.4-12.4) fL Immature Gran % (Auto) % Neut % (Auto) % Lymph % (Auto) % Cowley % (Auto) % Eos % (Auto) % Baso % (Auto) % Neut # (Auto) (1.4-6.5) K/uL Lymph # (Auto) (1.2-3.4) K/uL Cowley # (Auto) (0.24-0.82) K/uL Eos # (Auto) (0-0.50) K/uL Baso # (Auto) (0-0.2) K/uL Immature Gran # (Auto) (0.00-0.02) K/uL Sodium (136-145) mmol/L Potassium (3.5-5.1) mmol/L Chloride (98-107) mmol/L Carbon Dioxide (21-32) mmol/L Anion Gap (3-11) BUN (6-23) mg/dl Creatinine (0.6-1.4) mg/dl Est Cr Clr Drug Dosing ml/min Est GFR ( Amer) ml/min Est GFR (Non-Af Amer) ml/min BUN/Creatinine Ratio (10-20) Glucose (70-99(Fasting)) mg/dl Calcium (8.5-10.1) mg/dl Total Bilirubin (0.2-1.0) mg/dl AST (13-39) U/L ALT (7-52) U/L Alkaline Phosphatase (34-104) U/L Total Protein (6.0-8.3) gm/dl Albumin (3.4-5.0) gm/dl Globulin (2.5-4.0) gm/dl Albumin/Globulin Ratio (0.9-2) TSH (0.300-4.500) uIu/ml Salicylates < 3.0 L (3.0-30) mg/dl Acetaminophen < 3 L (10-30) ug/ml Ethyl Alcohol mg/dL < 10.0 (<10.0) mg/dl SARS-CoV-2, RNA, NAAT NEGATIVE (NEGATIVE) Administered Medications Discontinued Medications Albuterol (Albuterol 0.083% Nebu Soln 3 Ml Vial) 2.5 mg NEB NOW STA; Protocol Stop: 04/15/22 13:23 Last Admin: 04/15/22 13:43 Dose: 2.5 mg Documented by: [id number] Discharge Plan Visit Data Chief Complaint: Mental Health Evaluation Stated Complaint: MENTAL HEALTH EVALUATION ED Provider: Néstor Gee Discharge Problem: Suicidal ideations, Mood disorder Patient Disposition: Admitted As Inpatient Discharge Instructions Interventions: ED Discharge Assessment Last Done: 04/15/22 18:39
[2022-04-15 12:11] LABS: Basophils # (auto) 0.05 K/uL (0-0.2); Basophils % (auto) 0.5 %; Eosinophils # (auto) 0.94 K/uL (0-0.50); Eosinophils % (auto) 10.3 %; Hematocrit (blood only) 48.5 % (40.1-51.0); Hemoglobin 16.2 g/dl (14.0-18.0); Immature Granulocytes # (auto) 0.02 K/uL (0.00-0.02); Immature Granulocytes % (auto) 0.2 %; Lymphocytes # (auto) 2.04 K/uL (1.2-3.4); Lymphocytes % (auto) 22.3 %; Mean Corpuscular Hemoglobin 29.6 pg (25.0-34.0); Mean Corpuscular Hgb Conc 33.4 g/dL (32.0-36.0); Mean Corpuscular Volume 88.5 fL (80.0-100.0); Mean Platelet Volume 9.8 fL (9.4-12.4); Monocytes # (auto) 0.66 K/uL (0.24-0.82); Monocytes % (auto) 7.2 %; Neutrophils # (auto) 5.42 K/uL (1.4-6.5); Neutrophils % (auto) 59.5 %; Platelet Count 316 K/uL (130-400); RDW Coefficient of Variation 12.7 % (11.5-14.5); Red Blood Count 5.48 M/uL (4.63-6.08); White Blood Count 9.13 K/ul (4.8-10.8)
[2022-04-15 12:21] LABS: Albumin Globulin Ratio 1.7 (0.9-2); Albumin Level 4.4 gm/dl (3.4-5.0); BUN Creatinine Ratio 14.4 (10-20); Bilirubin,Total 0.5 mg/dl (0.2-1.0); Calcium 9.3 mg/dl (8.5-10.1); Creatinine Clr Calc Pharmacy 111.6 ml/min; Est GFR (African American) 111.1 ml/min; Est GFR (Non-African American) 95.9 ml/min; Globulin 2.6 gm/dl (2.5-4.0); Potassium 4.6 mmol/L (3.5-5.1)
[2022-04-15 12:54] LABS: Acetaminophen < 3 ug/ml (10-30); Salicylate < 3.0 mg/dl (3.0-30)
[2022-04-15] MEDS ORDERED: ALBUTEROL 0.083% NEBU SOLN 3 ML VIAL NEB STA (13:22)
[2022-04-15 16:46] LABS: Appearance Urine Clear (Clear); Bilirubin Urine Negative (Negative); Blood Urine Negative (Negative); Color Urine Yellow; Glucose Urine UA Negative (Negative); Ketones Urine Negative (Negative); Leukocyte Esterase Urine Negative (Negative); Nitrite Urine Negative (Negative); Protein Urine Negative (Negative); Specific Gravity Urine 1.017 (1.000-1.030); Urobilinogen Urine Negative (Negative); pH Urine 6.5 (4.5-7.5)
[2022-04-15 17:04] LABS: Amphetamines+Metham, Urine Neg (Neg); Barbiturates, Urine Neg (Neg); Benzodiazepine, Urine Neg (Neg); Cocaine, Urine Neg (Neg); MDMA (Ecstacy), Urine Neg (Neg); Methadone, Urine Neg (Neg); Opiate, Urine Neg (Neg); Phencyclidine, Urine Neg (Neg)
[2022-04-15] MEDS ORDERED: BISMUTH SUBSALICYLATE LIQD 236 ML PO PRN (18:43)
[2022-04-15] MEDS ORDERED: ALUMINUM/MAGNESIUM SUSP 30 ML UDC PO PRN (18:43)
[2022-04-15] MEDS ORDERED: LORazepam 1 MG TAB PO PRN (18:43)
[2022-04-15] MEDS ORDERED: hydrOXYzine HCl 25 MG TAB PO PRN ×2 (18:43)
[2022-04-15] MEDS ORDERED: MAGNESIUM HYDROXIDE SUSP 30 ML UDC PO PRN (18:43)
[2022-04-15] MEDS ORDERED: SODIUM CHLORIDE 0.65% NA SOLN 45 ML (OCEAN) PRN (18:43)
[2022-04-15] MEDS: ALBUTEROL HFA 8 GM INHALER INH PRN (22:38)
[2022-04-16] MEDS: ALBUTEROL HFA 8 GM INHALER INH PRN ×2 (06:07→13:27)
[2022-04-16] MEDS: ACETAMINOPHEN 325 MG TAB PO PRN (06:07)
[2022-04-16] MEDS ORDERED: traZODone HCL 50 MG TAB PO PRN (10:19)
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
[2022-04-16] MEDS ORDERED: busPIRone 5 MG TAB PO PRN (11:31)
[2022-04-16] MEDS: FLUTICASONE HFA 110MCG INHALER INH SCH ×2 (11:42→20:39)
[2022-04-16] MEDS: IBUPROFEN 600 MG TAB PO PRN ×2 (13:33→20:37)
[2022-04-17] MEDS: FLUTICASONE HFA 110MCG INHALER INH SCH ×2 (08:18→21:03)
[2022-04-17] MEDS: MONTELUKAST SODIUM 10 MG TABLET PO SCH (08:18)
[2022-04-17] MEDS: ESCITALOPRAM OXALATE 10 MG TAB PO SCH (12:56)
--- NOTE | 2022-04-17 14:06 | Psychiatric Progress Note ---
Date of Service April 17, 2022 Impression / Recommendations Impression 31 yo male with hx of opiate dependence (in remission) presents with worsening anxiety, vegetative depression in the setting of marital stress which has also resulted in increased ETOH intake. 04/17/22: improving, no evidence of withdrawal. (1) Major depression: (2) Anxiety: (3) Asthma: 04/17/22: patient agreeable to a trial of Lexapro. 04/16/22: The patient was admitted to the [facility]) on q15 min checks (behavioral with suicide precautions) for safety. The patient will participate in group, recreational, and milieu therapies and will be offered additional individual and family sessions as clinically appropriate. Risks/benefits/alternatives reviewed re: antidepressants, he declines an SSri at this time but was agreeable to any anxiety or sleep medication that isn't an antihistamine as he has paradoxical reactions to benadryl. AWSS protocol. Brief intervention offered around ETOH use and it's depressant effects, intervention was >5 min in length. He is is precontemplation stage but does recognize use could become problematic. Inventory Assets Strengths: loves kids, employed Needs: therapy likely with a couples component Suicide Risk Level Suicide Risk Level: High (q15 min suicide checks) (SI with plan, contracts to go to staff, not impaired by ETOH here.) Risk Factors Assessment Male: Yes : Yes Do You Have Access To A Gun?: No Mental Health Diagnoses: Yes Substance Use Disorders: Yes (hx, current ETOH use) Previous Attempt: Yes Family History of Suicide: Yes Previous Psychiatric Hospitalization: No Protective Factors Assessment : Yes Responsible for Young Children: Yes Employed: Yes ([employer]) Interval History Identifying Information MAGDALENA LARES is a 31-year-old M who currently lives in [place], has no formal psych hx, and was admitted on 04/15/22 18:43 on a 201 voluntary commitment for SI with plan. Chief Complaint "I slept a little better but I do want to do something more for my depression". Review of Systems Sleep Information Total Hours of Sleep: 7 Meal Information Percent Meal Consumed - Breakfast: 100 Percent Meal Consumed - Lunch: 100 Percent Meal Consumed - Dinner: 100 Subjective Subjective Patient was seen & assessed and interval progress reviewed with treatment team. Patient has been cooperative with unit routines. Did use Buspar 5 with little benefit for anxiety but feels that trazodone was quite helpful for sleep. He is missing his children. Reports poor concentration. Is benefiting from interaction with peers. Physical Exam Psychiatric Orientation: alert and oriented x 3 Apperance: appropriately dressed and appropriately groomed Eye Contact: good eye contact Motor Behavior: no abnormal motor movements Speech: normal rate/rhythm/volume of speech Affect: + depressed affect Mood: + depressed mood Thought Process: goal directed thought process Thought Content: reality based without delusions Suicidal Thoughts: denies suicidal thoughts Homicidal Thoughts: denies homicidal thoughts Hallucinations: no auditory hallucinations and no visual hallucinations Cognition: attention grossly intact and language grossly intact Estimated Intelligence: consistent with education level Insight: + limited insight Judgement: + limited judgement Vital Signs (Past 24 Hours) Last Vital Signs Temp 37.0 C 04/17/22 10:00 Pulse 80 04/17/22 10:00 Resp 18 04/17/22 10:00 BP 125/87 04/17/22 10:00 Pulse Ox 97 04/15/22 19:13 Results & Data ([facility]) Current Inpatient Medications Current Inpatient Medications: Current Inpatient Medications Acetaminophen (Acetaminophen 325 Mg Tab) 650 mg PO Q4H PRN PRN Reason: Headache or Minor Fever Stop: 05/15/22 18:42 Last Admin: 04/16/22 06:07 Dose: 650 mg Documented by: Al Hydrox/Mg Hydrox/Simethicone (Aluminum/Magnesium Susp 30 Ml Udc) 30 ml PO Q4H PRN PRN Reason: GI Upset Stop: 05/15/22 18:42 Albuterol (Albuterol Hfa 8 Gm Inhaler) 2 puffs INH Q4R PRN PRN Reason: Shortness Of Breath Or Wheezing Stop: 05/15/22 19:12 Last Admin: 04/16/22 13:27 Dose: 2 puffs Documented by: Bismuth Subsalicylate (Bismuth Subsalicylate Liqd 236 Ml) 15 ml PO PRN PRN PRN Reason: Loose Stool Stop: 05/15/22 18:42 Buspirone HCl (Buspirone 5 Mg Tab) 10 mg PO TID PRN PRN Reason: Anxiety Stop: 05/16/22 13:59 Escitalopram Oxalate (Escitalopram Oxalate 10 Mg Tab) 10 mg PO QAM SHARI Stop: 05/17/22 12:29 Last Admin: 04/17/22 12:56 Dose: 10 mg Documented by: Fluticasone Propionate (Fluticasone Hfa 110mcg Inhaler) 2 puffs INH BID SHARI Stop: 05/16/22 10:14 Last Admin: 04/17/22 08:18 Dose: 2 puffs Documented by: Ibuprofen (Ibuprofen 600 Mg Tab) 600 mg PO Q6H PRN PRN Reason: Pain Stop: 05/16/22 12:44 Last Admin: 04/16/22 20:37 Dose: 600 mg Documented by: Lorazepam (Lorazepam 1 Mg Tab) 1 - 3 mg PO UD PRN; Protocol PRN Reason: EtoH Withdrawal AWSS 6-10+ Stop: 05/15/22 18:42 Magnesium Hydroxide (Magnesium Hydroxide Susp 30 Ml Udc) 30 ml PO DAILY PRN PRN Reason: Constipation Stop: 05/15/22 18:42 Montelukast Sodium (Montelukast Sodium 10 Mg Tablet) 10 mg PO QAM [facility] Stop: 05/17/22 08:59 Last Admin: 04/17/22 08:18 Dose: 10 mg Documented by: Sodium Chloride (Sodium Chloride 0.65% Na Soln 45 Ml ([place])) 1 - 2 sprays NA PRN PRN PRN Reason: Nasal Dryness/Congestion Stop: 05/15/22 18:42 Trazodone HCl (Trazodone Hcl 50 Mg Tab) 50 mg PO HS PRN PRN Reason: Insomnia Stop: 05/16/22 10:18 Last Admin: 04/16/22 22:06 Dose: 50 mg Documented by: Trazodone HCl (Trazodone Hcl 50 Mg Tab) 50 mg PO HS [facility] Stop: 05/17/22 21:59 Mental Health & Subst Abuse Tx Therapist Name of Therapist: None Ground Services Instructor Name of Ground Services Instructor: None Post Discharge Appointments Primary Care Physician Name Of Family Doctor: "i can't think of their name"
[2022-04-17] MEDS: busPIRone 5 MG TAB PO PRN (21:02)
[2022-04-17] MEDS: traZODone HCL 50 MG TAB PO SCH ×2 (22:19→23:03)
[2022-04-18] MEDS: ESCITALOPRAM OXALATE 10 MG TAB PO SCH (08:36)
[2022-04-18] MEDS: MONTELUKAST SODIUM 10 MG TABLET PO SCH (08:36)
[2022-04-18] MEDS: FLUTICASONE HFA 110MCG INHALER INH SCH ×2 (08:37→20:42)
--- NOTE | 2022-04-18 11:15 | Psychiatric Progress Note ---
Date of Service April 18, 2022 Impression / Recommendations Impression 31 yo male with hx of opiate dependence (in remission) presents with worsening anxiety, vegetative depression in the setting of marital stress which has also resulted in increased ETOH intake. 04/18/22: ongoing anxiety (1) Major depression: (2) Anxiety: (3) Asthma: 04/18/22: continue current meds and tx plan, encouraged family meeting. d/c AWSS protocol. 04/17/22: patient agreeable to a trial of Lexapro. 04/16/22: The patient was admitted to the [facility] ([facility] unit) on q15 min checks (behavioral with suicide precautions) for safety. The patient will participate in group, recreational, and milieu therapies and will be offered additional individual and family sessions as clinically appropriate. Risks/benefits/alternatives reviewed re: antidepressants, he declines an SSri at this time but was agreeable to any anxiety or sleep medication that isn't an antihistamine as he has paradoxical reactions to benadryl. AWSS protocol. Brief intervention offered around ETOH use and it's depressant effects, intervention was >5 min in length. He is is precontemplation stage but does recognize use could become problematic. Inventory Assets Strengths: loves kids, employed Needs: therapy likely with a couples component Suicide Risk Level Suicide Risk Level: High (q15 min suicide checks) (SI with plan, contracts to go to staff, not impaired by ETOH here.) Risk Factors Assessment Male: Yes : Yes Do You Have Access To A Gun?: No Mental Health Diagnoses: Yes Substance Use Disorders: Yes (hx, current ETOH use) Previous Attempt: Yes Family History of Suicide: Yes Previous Psychiatric Hospitalization: No Protective Factors Assessment : Yes Responsible for Young Children: Yes Employed: Yes ([employer]) Interval History Identifying Information MAGDALENA LARES is a 31-year-old M who currently lives in [place], has no formal psych hx, and was admitted on 04/15/22 18:43 on a 201 voluntary commitment for SI with plan. Chief Complaint "I need to be present for my kids". Review of Systems Sleep Information Total Hours of Sleep: 7 Meal Information Percent Meal Consumed - Breakfast: 100 Percent Meal Consumed - Lunch: 100 Percent Meal Consumed - Dinner: 100 Subjective Subjective Patient was seen & assessed and interval progress reviewed with nursing and social work. did take Buspar last pm with some benefit for anxiety, didn't initially want trazodone but did request later as "can't turn my mind off", worried about family/missing kids. Doesn't want to take trazodone at home as typically sleeps during day when kids are near and "I have to be available to be dad." Physical Exam Psychiatric Orientation: alert and oriented x 3 Apperance: appropriately dressed and appropriately groomed Eye Contact: good eye contact Motor Behavior: no abnormal motor movements Speech: normal rate/rhythm/volume of speech Affect: + depressed affect Mood: + depressed mood Thought Process: goal directed thought process Thought Content: reality based without delusions Suicidal Thoughts: denies suicidal thoughts, denies suicidal plan and denies suicidal intent Homicidal Thoughts: denies homicidal thoughts Hallucinations: no auditory hallucinations and no visual hallucinations Cognition: attention grossly intact and language grossly intact Estimated Intelligence: consistent with education level Insight: + limited insight Judgement: + limited judgement Vital Signs (Past 24 Hours) Last Vital Signs Temp 36.8 C 04/18/22 06:42 Pulse 69 04/18/22 06:43 Resp 18 04/18/22 06:42 BP 124/79 04/18/22 06:43 Pulse Ox 98 04/17/22 23:08 Results & Data ([facility]) Current Inpatient Medications Current Inpatient Medications: Current Inpatient Medications Acetaminophen (Acetaminophen 325 Mg Tab) 650 mg PO Q4H PRN PRN Reason: Headache or Minor Fever Stop: 05/15/22 18:42 Last Admin: 04/16/22 06:07 Dose: 650 mg Documented by: Al Hydrox/Mg Hydrox/Simethicone (Aluminum/Magnesium Susp 30 Ml Udc) 30 ml PO Q4H PRN PRN Reason: GI Upset Stop: 05/15/22 18:42 Albuterol (Albuterol Hfa 8 Gm Inhaler) 2 puffs INH Q4R PRN PRN Reason: Shortness Of Breath Or Wheezing Stop: 05/15/22 19:12 Last Admin: 04/16/22 13:27 Dose: 2 puffs Documented by: Bismuth Subsalicylate (Bismuth Subsalicylate Liqd 236 Ml) 15 ml PO PRN PRN PRN Reason: Loose Stool Stop: 05/15/22 18:42 Buspirone HCl (Buspirone 5 Mg Tab) 10 mg PO TID PRN PRN Reason: Anxiety Stop: 05/16/22 13:59 Last Admin: 04/17/22 21:02 Dose: 10 mg Documented by: Escitalopram Oxalate (Escitalopram Oxalate 10 Mg Tab) 10 mg PO QAM [facility] Stop: 05/17/22 12:29 Last Admin: 04/18/22 08:36 Dose: 10 mg Documented by: Fluticasone Propionate (Fluticasone Hfa 110mcg Inhaler) 2 puffs INH BID [facility] Stop: 05/16/22 10:14 Last Admin: 04/18/22 08:37 Dose: 2 puffs Documented by: Ibuprofen (Ibuprofen 600 Mg Tab) 600 mg PO Q6H PRN PRN Reason: Pain Stop: 05/16/22 12:44 Last Admin: 04/16/22 20:37 Dose: 600 mg Documented by: Magnesium Hydroxide (Magnesium Hydroxide Susp 30 Ml Udc) 30 ml PO DAILY PRN PRN Reason: Constipation Stop: 05/15/22 18:42 Montelukast Sodium (Montelukast Sodium 10 Mg Tablet) 10 mg PO QAM [facility] Stop: 05/17/22 08:59 Last Admin: 04/18/22 08:36 Dose: 10 mg Documented by: Sodium Chloride (Sodium Chloride 0.65% Na Soln 45 Ml (Morris)) 1 - 2 sprays NA PRN PRN PRN Reason: Nasal Dryness/Congestion Stop: 05/15/22 18:42 Trazodone HCl (Trazodone Hcl 50 Mg Tab) 50 mg PO HS PRN PRN Reason: Insomnia Stop: 05/16/22 10:18 Last Admin: 04/16/22 22:06 Dose: 50 mg Documented by: Mental Health & Subst Abuse Tx Therapist Name of Therapist: None Construction Operations Manager Name of Construction Operations Manager: None Post Discharge Appointments Primary Care Physician Name Of Family Doctor: "i can't think of their name"
[2022-04-18] MEDS: busPIRone 5 MG TAB PO PRN (22:16)
[2022-04-18] MEDS: ACETAMINOPHEN 325 MG TAB PO PRN (22:18)
[2022-04-19] MEDS: ESCITALOPRAM OXALATE 10 MG TAB PO SCH (07:42)
[2022-04-19] MEDS: MONTELUKAST SODIUM 10 MG TABLET PO SCH (07:42)
[2022-04-19] MEDS: FLUTICASONE HFA 110MCG INHALER INH SCH (07:43)
[2022-04-19] MEDS: ACETAMINOPHEN 325 MG TAB PO PRN (07:46)
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
== END 2022-04-19 11:50 | disposition home or self-care (01) | DRG 881 ==
LOC: ED 10:50 → 3S 18:39

== ENCOUNTER 2022-08-22 23:54 | Observation (INO) ==
[2022-08-23] MEDS ORDERED: ALBUT/IPRATROP 3MG/0.5MG NEB 3 ML VIAL INH STA (01:02)
[2022-08-23] MEDS ORDERED: dexAMETHasone**PF** 10 MG/ML VIAL IV ONE (01:02)
[2022-08-23 01:21] LABS: Basophils # (auto) 0.09 K/uL (0-0.2); Basophils % (auto) 0.6 %; Eosinophils # (auto) 1.84 K/uL (0-0.50); Eosinophils % (auto) 13.3 %; Hematocrit (blood only) 44.4 % (40.1-51.0); Hemoglobin 15.1 g/dl (14.0-18.0); Immature Granulocytes # (auto) 0.06 K/uL (0.00-0.02); Immature Granulocytes % (auto) 0.4 %; Lymphocytes # (auto) 3.41 K/uL (1.2-3.4); Lymphocytes % (auto) 24.6 %; Mean Corpuscular Hemoglobin 29.8 pg (25.0-34.0); Mean Corpuscular Volume 87.7 fL (80.0-100.0); Mean Platelet Volume 9.8 fL (9.4-12.4); Monocytes # (auto) 0.95 K/uL (0.24-0.82); Monocytes % (auto) 6.8 %; Neutrophils # (auto) 7.52 K/uL (1.4-6.5); Neutrophils % (auto) 54.3 %; Platelet Count 308 K/uL (130-400); RDW Coefficient of Variation 12.9 % (11.5-14.5); RDW Standard Deviation 41.3 fL (36.4-46.3); Red Blood Count 5.06 M/uL (4.63-6.08); White Blood Count 13.87 K/ul (4.8-10.8)
[2022-08-23 01:49] LABS: Troponin I High Sensitivity 6.7 pg/ml (0-20)
[2022-08-23 02:04] LABS: Albumin Globulin Ratio 1.8 (0.9-2); Albumin Level 4.1 gm/dl (3.4-5.0); BUN Creatinine Ratio 15.3 (10-20); Bilirubin,Total 0.3 mg/dl (0.2-1.0); Calcium 9.1 mg/dl (8.5-10.1); Creatinine Clr Calc Pharmacy 125.4 ml/min; Est GFR (African American) 118.6 ml/min; Est GFR (Non-African American) 102.3 ml/min; Globulin 2.3 gm/dl (2.5-4.0); Total Protein 6.4 gm/dl (6.0-8.3)
[2022-08-23] MEDS ORDERED: ALBUT/IPRATROP 3MG/0.5MG NEB 3 ML VIAL NEB STA (02:56)
--- NOTE | 2022-08-23 03:18 | Emergency Department Note ---
History of Present Illness General Chief complaint: Shortness of Breath/Dyspnea Stated complaint: SOB,COUGH Time Seen by Provider: 08/23/22 00:53 History of Present Illness This 32-year-old with asthma presents to the ER complaining of cough and shortness of breath is getting progressively worse over the past few days Location: Chest Quality: Hard to breathe Severity: Moderate Duration: Past few days Timing: Started few days ago Context: Patient was concerned and came in Modifying factors: better with rest; worse with activity Patient denies chest pain, fever, chills, abdominal pain, flulike illness. No history of intubation. He states he does not smoke. Home Medications Medication Instructions Recorded Confirmed Type albuterol sulfate 90 mcg/actuation 2 puff inhalation Q6H PRN 12/07/18 04/15/22 History aerosol inhaler (Ventolin HFA) Shortness Of Breath Or Wheezing ipratropium 0.5 mg-albuterol 3 mg 3 ml inhalation DIRECTED PRN 09/27/21 04/15/22 History (2.5 mg base)/3 mL nebulization Shortness Of Breath Or Wheezing soln montelukast 10 mg tablet 10 mg PO QAM 09/27/21 04/15/22 History fluticasone propionate 110 2 puff inhalation BID #1 g 04/19/22 Rx mcg/actuation HFA aerosol inhaler (Flovent HFA) buspirone 10 mg tablet 10 mg PO BID 08/23/22 08/23/22 History escitalopram oxalate 20 mg tablet 20 mg PO DAILY 08/23/22 08/23/22 History Allergies Allergy/AdvReac Type Severity Reaction Status Date / Time No Known Allergies Allergy Verified 02/12/22 08:54 Past Med/Surg History Medical History (Updated 08/23/22 @ 04:52 by Caitie Marquez PA-C) Anxiety Asthma (03/13/13) Asthma exacerbation H/O drug abuse "Denies heroin use since 2013 " Hx of meningitis "Kirsten. 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 Required: No Beliefs That Will Affect Care: None Feels Safe at Home: Yes Assistive Devices: None Review of Systems A total of 10 systems reviewed and were otherwise negative Physical Exam Vital Signs Vital Signs - 24 hr 08/22/22 23:58 08/23/22 00:26 08/23/22 03:01 Temperature 36.9 C Temperature Source Temporal Artery Scan Pulse Rate 113 H Pulse Rate [Apical] 117 H 95 H Respiratory Rate 19 17 14 Respiratory Effort / Characteristics Spontaneous Respiratory Depth Normal Blood Pressure 146/86 H Blood Pressure [Right Arm] 143/90 H 131/98 Blood Pressure Mean 106 Blood Pressure Mean [Right Arm] 107 109 Pulse Oximetry 97 95 97 Oxygen Delivery Method Room Air Room Air Nasal Cannula Oxygen Flow Rate 2 Sepsis Recent Fever Within 48 Hours No Sepsis New/Unexplained Change in Mental Status N/A Sepsis Action Taken by Nursing No Action Required 08/23/22 01:20 08/23/22 03:44 08/23/22 01:30 Temperature Temperature Source Pulse Rate 100 H Pulse Rate [Apical] Respiratory Rate 15 Respiratory Effort / Characteristics Respiratory Depth Blood Pressure Blood Pressure [Right Arm] Blood Pressure Mean Blood Pressure Mean [Right Arm] Pulse Oximetry 96 93 89 L Oxygen Delivery Method Room Air Nasal Cannula Oxygen Flow Rate 2 Sepsis Recent Fever Within 48 Hours Sepsis New/Unexplained Change in Mental Status Sepsis Action Taken by Nursing PHYSICAL EXAM: Vital Signs: Reviewed Nurse's notes. Oxygen saturation was 91% on room air. GENERAL: Pleasant patient, Alert, oriented and coherent. The patient is not able to speak in complete sentences. NECK: Supple, non-tender. CHEST: Symmetrical expansion. + retractions + accessory muscle use. HEART: Regular rate and normal heart sounds, LUNGS: Breath sounds equal but significantly diminished in intensity on both sides. Bilateral wheezes heard but no rales or pleuritic rub. SKIN: The skin was without rashes, erythema, edema, or bruising. There is no tenting of the skin. Capillary reflex less than 2 seconds. HEAD: Normocephalic atraumatic. EARS: External auditory canals clear, tympanic membranes pearly baum without erythema or effusion bilaterally. EYES: Pupils equal round and reactive to light and accommodation. Conjunctivae without injection, sclerae without icterus. Extraocular movements intact. NOSE: Patent, turbinates without inflammation or discharge. No sinus tenderness. MOUTH: Mucous membranes moist. Pharynx without erythema or exudate. Uvula midline. Airway patent. Tongue does not deviate. ABDOMEN: Positive bowel sounds x 4. Normal tympanic percussion. Soft, nontender, without masses or organomegaly. Griffith sign negative. No guarding or rebound tenderness. MUSCULOSKELETAL: No muscle atrophy, erythema, or edema noted. NEURO: Patient was alert and oriented to person place and time. Normal sensation to light and sharp touch. No focal neurological deficits. Course Administered Medications Discontinued Medications Albuterol (Albut/Ipratrop 3mg/0.5mg Neb 3 Ml Vial) 3 ml INH NOW STA Stop: 08/23/22 01:03 Last Admin: 08/23/22 01:14 Dose: 3 ml Documented By: MED Albuterol (Albut/Ipratrop 3mg/0.5mg Neb 3 Ml Vial) 3 ml NEB NOW STA; Protocol Stop: 08/23/22 02:57 Last Admin: 08/23/22 02:59 Dose: 3 ml Documented By: MED Dexamethasone Sodium Phosphate (DexamethasonePf 10 Mg/Ml Vial) 10 mg IV NOW ONE Stop: 08/23/22 01:03 Last Admin: 08/23/22 01:15 Dose: 10 mg Documented By: MED Magnesium Sulfate/Dextrose (Magnesium Sulfate / D5w) 1 gm in 100 mls @ 600 mls/hr IV Q10M [facility] Stop: 08/23/22 03:37 Last Admin: 08/23/22 04:19 Dose: 600 mls/hr Documented By: MED Medical Decision Making Medical Records Attestation: I reviewed the patient's medical records. Home Medications Current Medication List: was personally reviewed by me Laboratory Data Attestation: I reviewed the patient's lab results. Result diagrams: 08/23/22 01:11 08/23/22 01:11 Lab Results 08/23/22 08/23/22 08/23/22 Range/Units 01:11 01:11 01:30 WBC 13.87 H (4.8-10.8) K/ul RBC 5.06 (4.63-6.08) M/uL Hgb 15.1 (14.0-18.0) g/dl Hct 44.4 (40.1-51.0) % MCV 87.7 (80.0-100.0) fL MCH 29.8 (25.0-34.0) pg MCHC 34.0 (32.0-36.0) g/dL RDW Std Deviation 41.3 (36.4-46.3) fL RDW Coeff of Jen 12.9 (11.5-14.5) % Plt Count 308 (130-400) K/uL MPV 9.8 (9.4-12.4) fL Immature Gran % (Auto) 0.4 % Neut % (Auto) 54.3 % Lymph % (Auto) 24.6 % Sumner % (Auto) 6.8 % Eos % (Auto) 13.3 % Baso % (Auto) 0.6 % Neut # (Auto) 7.52 H (1.4-6.5) K/uL Lymph # (Auto) 3.41 H (1.2-3.4) K/uL Sumner # (Auto) 0.95 H (0.24-0.82) K/uL Eos # (Auto) 1.84 H (0-0.50) K/uL Baso # (Auto) 0.09 (0-0.2) K/uL Immature Gran # (Auto) 0.06 H (0.00-0.02) K/uL Sodium 140 (136-145) mmol/L Potassium 4.0 (3.5-5.1) mmol/L Chloride 107 (98-107) mmol/L Carbon Dioxide 26 (21-32) mmol/L Anion Gap 7 (3-11) BUN 15 (6-23) mg/dl Creatinine 0.98 (0.6-1.4) mg/dl Est Cr Clr Drug Dosing 125.4 ml/min Est GFR ( Amer) 118.6 ml/min Est GFR (Non-Af Amer) 102.3 ml/min BUN/Creatinine Ratio 15.3 (10-20) Glucose 102 H (70-99(Fasting)) mg/dl Calcium 9.1 (8.5-10.1) mg/dl Magnesium 2.0 (1.7-2.4) mg/dl Total Bilirubin 0.3 (0.2-1.0) mg/dl AST 22 (13-39) U/L ALT 25 (7-52) U/L Alkaline Phosphatase 88 (34-104) U/L Troponin I High Sens 6.7 (0-20) pg/ml Total Protein 6.4 (6.0-8.3) gm/dl Albumin 4.1 (3.4-5.0) gm/dl Globulin 2.3 L (2.5-4.0) gm/dl Albumin/Globulin Ratio 1.8 (0.9-2) SARS-CoV-2 (PCR) NEGATIVE (Negative) 08/23/22 Range/Units 02:58 WBC (4.8-10.8) K/ul RBC (4.63-6.08) M/uL Hgb (14.0-18.0) g/dl Hct (40.1-51.0) % MCV (80.0-100.0) fL MCH (25.0-34.0) pg MCHC (32.0-36.0) g/dL RDW Std Deviation (36.4-46.3) fL RDW Coeff of Jen (11.5-14.5) % Plt Count (130-400) K/uL MPV (9.4-12.4) fL Immature Gran % (Auto) % Neut % (Auto) % Lymph % (Auto) % Sumner % (Auto) % Eos % (Auto) % Baso % (Auto) % Neut # (Auto) (1.4-6.5) K/uL Lymph # (Auto) (1.2-3.4) K/uL Sumner # (Auto) (0.24-0.82) K/uL Eos # (Auto) (0-0.50) K/uL Baso # (Auto) (0-0.2) K/uL Immature Gran # (Auto) (0.00-0.02) K/uL Sodium (136-145) mmol/L Potassium (3.5-5.1) mmol/L Chloride (98-107) mmol/L Carbon Dioxide (21-32) mmol/L Anion Gap (3-11) BUN (6-23) mg/dl Creatinine (0.6-1.4) mg/dl Est Cr Clr Drug Dosing ml/min Est GFR ( Amer) ml/min Est GFR (Non-Af Amer) ml/min BUN/Creatinine Ratio (10-20) Glucose (70-99(Fasting)) mg/dl Calcium (8.5-10.1) mg/dl Magnesium (1.7-2.4) mg/dl Total Bilirubin (0.2-1.0) mg/dl AST (13-39) U/L ALT (7-52) U/L Alkaline Phosphatase (34-104) U/L Troponin I High Sens 6.2 (0-20) pg/ml Total Protein (6.0-8.3) gm/dl Albumin (3.4-5.0) gm/dl Globulin (2.5-4.0) gm/dl Albumin/Globulin Ratio (0.9-2) SARS-CoV-2 (PCR) (Negative) Imaging Data Attestation: I personally reviewed and interpreted this imaging study as follows: MDM Narrative Prior records/ancillary studies reviewed. Triage Nursing notes reviewed. Additional history obtained from nursing The patient's history was concerning for respiratory difficulties. Differential diagnosis: Etiologies such as infections, reactive airway disease, pneumonia, pneumothorax, COPD, CHF, cardiac ischemia, pulmonary embolism, musculoskeletal, gastrointestinal, as well as others were entertained. Physical examination: As above. ER treatment provided: An order was placed for continuous cardiac monitoring. The monitor shows a rate of 60-1 50 with a sinus rhythm. Nebulizers, steroids, magnesium On reassessment the patient felt better. Diagnostic interpretation by me: The electrocardiogram was negative for acute ischemic or pathologic change. Order for dyspnea EKG: Normal sinus, normal intervals, no acute ST-T wave changes. Impression sinus tachycardia 106 interpreted by myself I think arrhythmia is unlikely. EKG shows normal sinus rhythm with no interval abnormalities such as QT prolongation or WPW. There are no findings to suggest Brugada syndrome. Cardiac monitoring in the emergency department reveals no tachycardic or bradycardic dysrhythmia. Hypertrophic cardiomyopathy was considered but there are no clear historical elements pointing toward this. EKG is not suggestive. The QRS voltage is not extremely large and there are no suggestive Q waves. The labs revealed negative troponin, mild leukocytosis Imaging studies: Chest x-ray with no acute consolidation, pneumothorax or free air per my interpretation. Consultation: A consultation was placed with the hospitalist. The case was discussed and diagnostics were reviewed. The patient was evaluated in the ER for further treatment. This appears to be consistent with asthma exacerbation who still hypoxic. Patient is given a few rounds of nebulizers. He was given steroids and m agnesium. He was still short of breath and sats were low. Medicine was consulted. He will be evaluated for admission. By the evaluation outlined above emergent etiologies such as CHF, cardiac ischemia, pulmonary embolism, pneumonia, pneumothorax, musculoskeletal, serious bacterial infections, as well as others were deemed relatively unlikely. The pt informed about the findings as listed above. All questions were answered and pleased with the treatment. condition. The chart was completed utilizing [employer] Speech voice recognition software. Grammatical errors, random word insertions, pronoun errors, and incomplete sentences are an occassional consequence of this system due to software limitations, ambient noise, and hardware issues. Any formal questions or concerns about the content, text, or information contained within the body of this dictation should be directly addressed to the physician support assistant for clarification. Impression & Plan Asthma with exacerbation Discharge Plan Visit Data Chief Complaint: Shortness of Breath/Dyspnea Stated Complaint: SOB,COUGH ED Provider: Mohini Lawson ED Midlevel Provider: Caitie Marquez Discharge Problem: Asthma with exacerbation Patient Disposition: Admitted As Inpatient Condition: Good Forms Stand Alone Forms: My [employer] Prescriptions Prescriptions: No Action albuterol sulfate [Ventolin HFA] 90 mcg/actuation Hfa Aerosol Inhaler 2 puff INHALATION Q6H PRN (Reason: Shortness Of Breath Or Wheezing) fluticasone propionate [Flovent HFA] 110 mcg/actuation Hfa Aerosol Inhaler 2 puff inhalation BID Qty: 1 0RF ipratropium-albuterol 0.5 mg-3 mg(2.5 mg base)/3 mL solution for nebulization 3 ml INHALATION DIRECTED PRN (Reason: Shortness Of Breath Or Wheezing) montelukast 10 mg tablet 10 mg PO QAM buspirone 10 mg tablet 10 mg PO BID escitalopram oxalate 20 mg tablet 20 mg PO DAILY Referrals Referrals: Elidia Scales MD [Primary Care Provider] - : Asthma with exacerbation Qualifiers: Asthma severity: severe Asthma persistence: persistent Qualified Code(s): J45.51 - Severe persistent asthma with (acute) exacerbation
[2022-08-23] MEDS: MAGNESIUM SULFATE / D5W 1 GM/100 ML BAG IV SCH ×2 (04:19→06:26)
[2022-08-23] MEDS ORDERED: POLYETHYLENE (MIRALAX) 17 GM PACK PO PRN (05:41)
[2022-08-23] MEDS ORDERED: ACETAMINOPHEN 325 MG TAB PO PRN (05:41)
[2022-08-23] MEDS ORDERED: ALBUT/IPRATROP 3MG/0.5MG NEB 3 ML VIAL NEB PRN (05:41)
[2022-08-23] MEDS ORDERED: ALBUTEROL HFA 8 GM INHALER INH PRN (05:41)
[2022-08-23] MEDS ORDERED: NITROGLYCERIN SL 0.4 MG/TAB TAB SL PRN (05:41)
--- NOTE | 2022-08-23 07:04 | History and Physical Report ---
DATE OF ADMISSION: 08/23/2022. CHIEF COMPLAINT: Shortness of breath. HISTORY OF PRESENT ILLNESS: This is a 32-year-old male with past medical history significant for seasonal and perennial allergic rhinitis, history of moderate persistent asthma without complication, history of GERD, history of chest pain, history of left posterior uveitis, candidal meningitis, Kirsten endophthalmitis, depression, male gynecomastia, anxiety, left eye vision loss, history of drugs in the past, comes with shortness of breath. Since last 3 days, feeling short of breath, cough, it is not getting better, not bringing any phlegm. Came to the ER and found to have wheezing and asthma exacerbation. The patient denies any fever or chills, has some mild chest tightness on and off going on since last 1 week. No radiation of the chest tightness , has some night sweats. Has some headache, no blurred visions, no earache, no sore throat, no runny nose, no . No nausea, no vomiting, no abdominal pain. Normal bowel and bladder movements. ALLERGIES: No known drug allergies. PAST MEDICAL HISTORY: As mentioned above. PAST SURGICAL HISTORY: Circumcision, EGD with biopsy, removal of inner eye fluid. MEDICATIONS: The patient is on albuterol 2 puffs inhalation q. 6 hours p.r.n., buspirone 10 mg p.o. b.i.d., Lexapro 20 mg p.o. daily, Flonase, Flovent 2 puffs inhalation b.i.d., DuoNebs p.r.n., Montelukast 10 mg p.o. a.m. FAMILY HISTORY: Significant for paternal grandmother had cancer. Aunt has breast cancer. Father has GERD. Mother has gastrointestinal disorder. Father has hypertension. Mother has hypertension. Father has thyroid disorder. SOCIAL HISTORY: Quit smoking in 2019. Smoked quarter pack a day for 9 years. Alcohol occasionally. No injectable drugs since spring. REVIEW OF SYSTEMS: As per HPI. Rest of review of systems is negative. PHYSICAL EXAMINATION: GENERAL: The patient is of moderate build, not in acute distress. VITAL SIGNS: Temperature 36.9, pulse 95, respiratory rate 14, blood pressure 131/98, oxygen 93% on room air. HEENT: Pupils equal, round and reactive to light. Oral mucosa moist. NECK: No JVD, no neck masses. CARDIOVASCULAR: S1 and S2 heard. Regular rate and rhythm. No murmur, no gallop. RESPIRATORY SYSTEM: Normal AP diameter. No accessory muscle use. Bilateral wheezing heard. No crackles. ABDOMEN: Soft, bowel sounds present, nontender, no distention. CENTRAL NERVOUS SYSTEM: Cranial nerves II-XII grossly intact, nonfocal. EXTREMITIES: No edema, no erythema. LABORATORY DATA: WBC 13.8, hemoglobin 15.1, hematocrit 44.4, platelets 308. Sodium 140, potassium 4, chloride 107, bicarbonate 26, BUN 15, creatinine 0.9, serum glucose 102, calcium 9.1, magnesium 2, total bilirubin 0.3, AST 22, ALT 25, alkaline phosphatase 88. Troponin I high sensitivity 6.2. SARS-CoV-2 rapid PCR negative. IMAGING DATA: Chest x-ray, no acute findings. ASSESSMENT AND PLAN: A 32-year-old male who presents with shortness of breath and asthma exacerbation. 1.Asthma exacerbation. We will continue with IV steroids, nebs around the clock and p.r.n. home inhalers, p.o. doxycycline and monitor the response. 2. Chest tightness mostly from the asthma exacerbation. Troponin is negative. Follow serial enzymes and follow EKGs. Monitor in med tele. 3. History of depression, anxiety. Continue buspirone and Lexapro. 4. Deep venous thrombosis prophylaxis. Lovenox. DISPOSITION: Admit to Med/Tele. PT/OT prior to discharge. Social service to help with discharge planning. Job ID: [id number] [facility]
[2022-08-23 07:09] LABS: Basophils # (auto) 0.04 K/uL (0-0.2); Basophils % (auto) 0.4 %; Eosinophils # (auto) 0.07 K/uL (0-0.50); Eosinophils % (auto) 0.7 %; Hemoglobin 15.3 g/dl (14.0-18.0); Lymphocytes # (auto) 0.84 K/uL (1.2-3.4); Lymphocytes % (auto) 8.3 %; Mean Corpuscular Hemoglobin 29.9 pg (25.0-34.0); Mean Corpuscular Volume 87.9 fL (80.0-100.0); Mean Platelet Volume 9.9 fL (9.4-12.4); Monocytes # (auto) 0.08 K/uL (0.24-0.82); Monocytes % (auto) 0.8 %; Neutrophils # (auto) 8.93 K/uL (1.4-6.5); Neutrophils % (auto) 88.8 %; Platelet Count 301 K/uL (130-400); RDW Coefficient of Variation 12.9 % (11.5-14.5); RDW Standard Deviation 41.1 fL (36.4-46.3); Red Blood Count 5.12 M/uL (4.63-6.08); White Blood Count 10.06 K/ul (4.8-10.8)
[2022-08-23] MEDS: ALBUT/IPRATROP 3MG/0.5MG NEB 3 ML VIAL NEB SCH ×2 (07:34→11:13)
[2022-08-23 07:43] LABS: Troponin I High Sensitivity 4.1 pg/ml (0-20)
[2022-08-23 07:48] LABS: BUN Creatinine Ratio 14.3 (10-20); Calcium 8.9 mg/dl (8.5-10.1); Creatinine Clr Calc Pharmacy 134.1 ml/min; Est GFR (African American) 129.7 ml/min; Est GFR (Non-African American) 111.9 ml/min; Magnesium 2.2 mg/dl (1.7-2.4); Potassium 4.5 mmol/L (3.5-5.1)
[2022-08-23] MEDS ORDERED: BENZONATATE 100 MG CAPSULE PO PRN (08:28)
[2022-08-23] MEDS ORDERED: methylPREDNISolone 40 MG in SYRINGE 0 ML IV SCH (09:00)
[2022-08-23] MEDS ORDERED: DOXYCYCLINE HYCLATE 100 MG CAP PO SCH (09:00)
[2022-08-23] MEDS ORDERED: FLUTICASONE FUROATE 200MCG 14 PUFFS/INHALER INH SCH (09:00)
[2022-08-23] MEDS ORDERED: busPIRone 5 MG TAB PO SCH (09:00)
[2022-08-23] MEDS ORDERED: ESCITALOPRAM OXALATE 20 MG TAB PO SCH (09:00)
[2022-08-23] MEDS ORDERED: MONTELUKAST SODIUM 10 MG TABLET PO SCH (09:00)
[2022-08-23] MEDS ORDERED: ENOXAPARIN INJ 40 MG/0.4 ML SYR SQ SCH (09:00)
[2022-08-23] MEDS ORDERED: methylPREDNISolone 40 MG in SYRINGE 0 ML IV STA (11:13)
--- NOTE | 2022-08-23 11:23 | Electrocardiogram Report ---
Test Reason : Blood Pressure : / mmHG Vent. Rate : 106 BPM Atrial Rate : 106 BPM P-R Int : 134 ms QRS Dur : 096 ms QT Int : 334 ms P-R-T Axes : 054 066 020 degrees QTc Int : 443 ms Sinus tachycardia Otherwise normal ECG When compared with ECG of 27-SEP-2021 14:08, No significant change was found Confirmed by Rodríguez Villaseñor ([id number]) on 08/23/2022 11:23:07 AM Referred By: Elidia Scales Confirmed By:Rodríguez Villaseñor
--- NOTE | 2022-08-23 11:24 | Discharge Summary ---
Date of Service August 23, 2022 Admission HPI Per Admitting Provider This is a 32-year-old male with past medical history significant for seasonal and perennial allergic rhinitis, history of moderate persistent asthma without complication, history of GERD, history of chest pain, history of left posterior uveitis, candidal meningitis, Kirsten endophthalmitis, depression, male gynecomastia, anxiety, left eye vision loss, history of drugs in the past, comes with shortness of breath. Since last 3 days, feeling short of breath, cough, it is not getting better, not bringing any phlegm. Came to the ER and found to have wheezing and asthma exacerbation. The patient denies any fever or chills, has some mild chest tightness on and off going on since last 1 week. No radiation of the chest tightness , has some night sweats. Has some headache, no blurred visions, no earache, no sore throat, no runny nose, no . No nausea, no vomiting, no abdominal pain. Normal bowel and bladder movements. Admission Exam Per Admitting Provider GENERAL: The patient is of moderate build, not in acute distress. VITAL SIGNS: Temperature 36.9, pulse 95, respiratory rate 14, blood pressure 131/98, oxygen 93% on room air. HEENT: Pupils equal, round and reactive to light. Oral mucosa moist. NECK: No JVD, no neck masses. CARDIOVASCULAR: S1 and S2 heard. Regular rate and rhythm. No murmur, no gallop. RESPIRATORY SYSTEM: Normal AP diameter. No accessory muscle use. Bilateral wheezing heard. No crackles. ABDOMEN: Soft, bowel sounds present, nontender, no distention. CENTRAL NERVOUS SYSTEM: Cranial nerves II-XII grossly intact, nonfocal. EXTREMITIES: No edema, no erythema. Principal Diagnosis asthma exacerbation Discharge Exam GENERAL: The patient is of moderate build, not in acute distress.r. HEENT: Pupils equal, round and reactive to light. Oral mucosa moist. NECK: No JVD, no neck masses. CARDIOVASCULAR: S1 and S2 heard. Regular rate and rhythm. No murmur, no gallop. RESPIRATORY SYSTEM: Normal AP diameter. No accessory muscle use. mild intermittent Bilateral wheezing heard. No crackles. ABDOMEN: Soft, bowel sounds present, nontender, no distention. CENTRAL NERVOUS SYSTEM: Cranial nerves II-XII grossly intact, nonfocal. EXTREMITIES: No edema, no erythema. Discharge Data Allergies Allergy/AdvReac Type Severity Reaction Status Date / Time No Known Allergies Allergy Verified 02/12/22 08:54 Consultations 08/23/22 03:28 ED Decision to Admit Stat Hospital Course (1) Asthma with exacerbation: - presented with cough, wheezing, shortness of breath in setting of URI symptoms - received IV steroids and doxycycline in the ED and on admission - symptoms improved - patient weaned off oxygen - still with mild intermittent wheezing bilaterally - feeling well and ready to go home - discharge on 4 more days of abx and prednisone - advised to follow up with PCP (2) Major depression: - continue home meds Total Time Total Time Spent Total Time Spent (In Minutes): 25 Total Time Includes: Examination of the Patient, Discharge Planning and Medication Reconciliation Discharge Plan Discharge Items Patient Disposition: Home - Self-Care Reason For Visit: SOB Discharge Diagnosis: asthma exacerbation Condition on Discharge: Good Activity: Resume your previous activity Non-emergency contact: Primary Care Provider Call non-emergency contact if: you have any medication questions and your symptoms worsen Follow-up/Referrals: Elidia Scales MD [Primary Care Provider] - Diet: Regular Addtl Attending Provider Instructions: You were admitted for an exacerbation of your asthma. You received IV steroids and antibiotics with improvement. you were taken off oxygen and ok for discharge. you should continue 4 more days of steroids with prednisone as well as 4 more days of antibiotics with doxycycline. Please follow up with your primary care doctor within a week of discharge. Pending Studies at Discharge: No Stand-Alone Forms: My [employer], Work/School Release, Smoking Cessation Medications and DC Order Prescriptions: New doxycycline hyclate 100 mg Capsule 100 mg PO BID Qty: 8 0RF prednisone 20 mg tablet 40 mg PO DAILY 11 Days Qty: 8 0RF Rx Instructions: days 11-21 of therapy Robitussin Cough-Chest Jasbir DM 10-200 mg capsule 1 tab-cap PO Q8H PRN (Reason: cough) Qty: 20 0RF Continued albuterol sulfate [Ventolin HFA] 90 mcg/actuation Hfa Aerosol Inhaler 2 puff INHALATION Q6H PRN (Reason: Shortness Of Breath Or Wheezing) fluticasone propionate [Flovent HFA] 110 mcg/actuation Hfa Aerosol Inhaler 2 puff inhalation BID Qty: 1 0RF ipratropium-albuterol 0.5 mg-3 mg(2.5 mg base)/3 mL solution for nebulization 3 ml INHALATION DIRECTED PRN (Reason: Shortness Of Breath Or Wheezing) montelukast 10 mg tablet 10 mg PO QAM buspirone 10 mg tablet 10 mg PO BID escitalopram oxalate 20 mg tablet 20 mg PO DAILY Discharge Orders: Discharge Order (Routine); Ordered 08/23/22 Ordered By: Eddie Barba Admission Data Admit Date/Time: 08/23/22 04:16 Attending Provider: Eddie Babra Admit Provider: Syed Estrella Primary Care Provider: Elidia Scales Other Providers: Syed Estrella Other Interventions: Discharge Summary Assessment (RN) Last Done: 08/23/22 11:14
--- NOTE | 2022-08-23 14:12 | XRay Report ---
XR chest 1V portable CLINICAL HISTORY: Dyspnea TECHNIQUE: Single frontal radiograph of the chest was obtained. Comparison: Comparison is made to chest radiograph 06/28/2021 FINDINGS: No lines and tubes are seen. The cardiomediastinal silhouette is normal. The lungs are clear. No evid ence of pleural effusion or pneumothorax. IMPRESSION: No acute chest disease. ACT 112: Negative or not required by law. Electronically signed by: Raúl Jin M.D. 08/23/2022 2:10 PM
== END 2022-08-23 12:14 | disposition home or self-care (01) ==
LOC: ED 23:54 → INTOOBSV 08-23 04:16 → 2N 08-23 04:16

== ENCOUNTER 2022-09-03 12:36 | Observation (INO) ==
--- NOTE | 2022-09-03 12:43 | Emergency Department Note ---
Impression & Plan Asthma with exacerbation, Acute dyspnea, Body aches ED Provider Note NAME: MAGDALENA LARES AGE: 32 SEX: M : 1990 ARRIVES VIA: Walk-In INFORMANT: Patient, ED PROVIDER(S): Ruddy Rodriguez MD Chief Complaint: Shortness of breath, body aches HPI: Patient presents to concern of shortness of breath and body aches. The patient denies any fevers or chills. The patient does complain of mild nonspecific headache no falls or trauma no numbness tingling or focal weakness. Patient states that he was admitted maybe 1 week prior due to concern for an asthma exacerbation. Patient has been trying his nebulizer and rescue inhaler at home but without improvement in symptoms. The patient was scheduled to have a follow-up PCP appointment tomorrow felt as though symptoms were worsening. Patient was reportedly to dip into the high 80s at 89% with walking back to the room from triage. Patient denies any leg swelling or focal calf pain. The patient does complain of some generalized body aches. Patient did not take any other medications at home. The patient denies any alcohol tobacco or drug use. No recent prolonged car plane travel. ROS: See HPI for pertinent positives and negatives. A total of 10 systems were reviewed and otherwise negative. Past medical history: See below Surgical history: See below Social history: See below Physical Exam: GENERAL: NAD, wearing a mask, non-toxic. EYE EXAM: Normal conjunctiva. PERRL, no anisocoria and EOM's grossly intact w/o pain. NECK: Supple, no nuchal rigidity, no adenopathy, non-tender. No signs of meningismus. FROM of the neck with good chin to chest and neck extension. No stridor. LUNGS: Inspiratory Next Tory wheezing noted. Normal chest wall mechanics. HEART: Tachycardic and regular, no MRG. ABDOMEN: Abdomen soft, non-tender, normo-active bowel sounds, no masses, no rebound or guarding. BACK: No CVA TTP. SKIN: No rashes and no bruising. UPPER EXTREMITIES: Upper extremities are grossly normal. LOWER EXTREMITIES: Grossly normal, no edema. Negative Homans' sign bilaterally. NEURO EXAM: A&O x3, cranial nerves II-XII grossly intact, normal speech, moves all 4 extremities. Differential diagnoses: Reactive airway disease, pneumonia, pneumothorax, COPD, CHF, infections, cardiac ischemia, pulmonary embolism, musculoskeletal, gastrointestinal, as well as other pathologies. Course: Patient was seen and evaluated the bedside. Full history physical exam was performed. EKG interpreted by me Sinus tachycardia, rate of 102 normal intervals normal axis T wave version lead III no ST elevations. No significant change for comparison August 23, 2022 Imaging Studies: See Below Cardiac monitoring: An order was placed for continuous cardiac monitoring. The monitor shows a rate of 112 with tachycardic and regular rhythm. MDM: Patient presents due to concern for shortness of breath. The patient states that it has been ongoing for the last 2 days with associated body aches. Blood work was obtained along with an EKG troponin chest x-ray. The patient was treated as he does have a component of reactive airway disease and was given nebs steroids magnesium and fluids. Chest x-ray also obtained along with an upper respiratory viral panel. Patient's blood work is grossly unremarkable with normal white count H&H and platelet count normal kidney function. Troponin not detectable. Upper respiratory viral panel is negative. The patient has a clear chest x-ray. EKG is nonischemic. The patient's pulse ox was borderline low even without ambulation but the patient reportedly had a pulse ox 87% at rest. Given this concern do think that the patient would benefit from inpatient treatment. I did speak the on-call hospitalist Dr. Dexter Lezama the patient was admitted to the medicine service. Past Med/Surg History Medical History (Updated 09/03/22 @ 19:24 by Ruddy Rodriguez MD) Anxiety Asthma (03/13/13) Asthma exacerbation H/O drug abuse "Denies heroin use since 2013 " Hx of meningitis "Kirsten. 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 Beliefs That Will Affect Care: None Current Living Situation: Alone Other Information That Helps Us Care for You: No Feels Safe at Home: Yes Safety Concerns: Feels Safe At This Time Assistive Devices: None Allergies Allergies Allergy/AdvReac Type Severity Reaction Status Date / Time No Known Allergies Allergy Verified 02/12/22 08:54 Home Meds Home Medications Medication Instructions Recorded Confirmed albuterol sulfate 90 mcg/actuation 2 puff inhalation Q6H PRN 12/07/18 09/03/22 aerosol inhaler (Ventolin HFA) Shortness Of Breath Or Wheezing ipratropium 0.5 mg-albuterol 3 mg 3 ml inhalation DIRECTED PRN 09/27/2109/03 (2.5 mg base)/3 mL nebulization Shortness Of Breath Or Wheezing soln montelukast 10 mg tablet 10 mg PO QAM 09/27/21 09/03/22 buspirone 10 mg tablet 10 mg PO BID 08/23/22 09/03/22 escitalopram oxalate 20 mg tablet 20 mg PO DAILY 08/23/22 09/03/22 Previous Rx's Medication Instructions Recorded fluticasone propionate 110 2 puff inhalation BID #1 g 04/19/22 mcg/actuation HFA aerosol inhaler (Flovent HFA) dextromethorphan-guaifenesin 10 1 tab-cap PO Q8H PRN cough #20 caps 08/23/22 mg-200 mg capsule (Robitussin Cough-Chest Congestion DM) Results & Data (ED) Vital Signs Vital Signs - 24 hr 09/03/22 12:39 09/03/22 12:47 09/03/22 13:00 Temperature 36.5 C Temperature Source Temporal Artery Scan Pulse Rate 112 H 109 H Pulse Rate [Left Finger] 102 H Pulse Rhythm Irregular Respiratory Rate 18 24 Respiratory Effort / Characteristics Non-Labored Respiratory Depth Normal Respiratory Pattern Blood Pressure 156/92 H Blood Pressure [Left Arm] 153/108 H Blood Pressure Mean 113 Blood Pressure Mean [Left Arm] 123 Blood Pressure Position [Left Arm] Sitting Pulse Oximetry 96 93 91 Oxygen Delivery Method Room Air Room Air Sepsis Recent Fever Within 48 Hours No Sepsis New/Unexplained Change in Mental Status No Sepsis Action Taken by Nursing No Action Required 09/03/22 13:38 09/03/22 13:50 09/03/22 14:56 Temperature Temperature Source Pulse Rate Pulse Rate [Left Finger] 84 95 H 99 H Pulse Rhythm Respiratory Rate 16 20 18 Respiratory Effort / Characteristics Non-Labored Spontaneous Non-Labored Spontaneous Respiratory Depth Respiratory Pattern Blood Pressure Blood Pressure [Left Arm] 134/90 Blood Pressure Mean Blood Pressure Mean [Left Arm] 104 Blood Pressure Position [Left Arm] Sitting Pulse Oximetry 92 87 L 93 Oxygen Delivery Method Room Air Room Air Room Air Sepsis Recent Fever Within 48 Hours Sepsis New/Unexplained Change in Mental Status Sepsis Action Taken by Nursing 09/03/22 15:00 Temperature 36.6 C Temperature Source Oral Pulse Rate Pulse Rate [Left Finger] 108 H Pulse Rhythm Respiratory Rate 22 Respiratory Effort / Characteristics Respiratory Depth Normal Respiratory Pattern Regular Blood Pressure Blood Pressure [Left Arm] 138/68 Blood Pressure Mean Blood Pressure Mean [Left Arm] 91 Blood Pressure Position [Left Arm] Pulse Oximetry 93 Oxygen Delivery Method Sepsis Recent Fever Within 48 Hours Sepsis New/Unexplained Change in Mental Status Sepsis Action Taken by Skilled Nursing Medications Current Medication List: was personally reviewed by me Laboratory Data Attestation: I reviewed the patient's lab results. Result diagrams: 09/03/22 13:00 09/03/22 13:00 Lab Results 09/03/22 09/03/22 09/03/22 Range/Units 13:00 13:00 13:00 WBC 10.23 (4.8-10.8) K/ul RBC 4.85 (4.63-6.08) M/uL Hgb 14.7 (14.0-18.0) g/dl Hct 43.1 (40.1-51.0) % MCV 88.9 (80.0-100.0) fL MCH 30.3 (25.0-34.0) pg MCHC 34.1 (32.0-36.0) g/dL RDW Std Deviation 42.9 (36.4-46.3) fL RDW Coeff of Jen 13.2 (11.5-14.5) % Plt Count 302 (130-400) K/uL MPV 9.8 (9.4-12.4) fL Immature Gran % (Auto) 0.3 % Neut % (Auto) 49.9 % Lymph % (Auto) 31.0 % Nuckolls % (Auto) 6.7 % Eos % (Auto) 11.6 % Baso % (Auto) 0.5 % Neut # (Auto) 5.10 (1.4-6.5) K/uL Lymph # (Auto) 3.17 (1.2-3.4) K/uL Nuckolls # (Auto) 0.69 (0.24-0.82) K/uL Eos # (Auto) 1.19 H (0-0.50) K/uL Baso # (Auto) 0.05 (0-0.2) K/uL Immature Gran # (Auto) 0.03 H (0.00-0.02) K/uL Sodium 139 (136-145) mmol/L Potassium 4.0 (3.5-5.1) mmol/L Chloride 107 (98-107) mmol/L Carbon Dioxide 27 (21-32) mmol/L Anion Gap 5 (3-11) BUN 16 (6-23) mg/dl Creatinine 1.21 (0.6-1.4) mg/dl Est Cr Clr Drug Dosing 97.2 ml/min Est GFR ( Amer) 91.9 ml/min Est GFR (Non-Af Amer) 79.3 ml/min BUN/Creatinine Ratio 13.2 (10-20) Glucose 115 H (70-99(Fasting)) mg/dl Calcium 9.2 (8.5-10.1) mg/dl Magnesium 2.1 (1.7-2.4) mg/dl Total Bilirubin 0.2 (0.2-1.0) mg/dl AST 17 (13-39) U/L ALT 18 (7-52) U/L Alkaline Phosphatase 61 (34-104) U/L Troponin I High Sens 2.7 (0-20) pg/ml C-Reactive Protein 0.54 H (0-0.5) mg/dl Total Protein 6.0 (6.0-8.3) gm/dl Albumin 4.0 (3.4-5.0) gm/dl Globulin 2.0 L (2.5-4.0) gm/dl Albumin/Globulin Ratio 2.0 (0.9-2) Adenovirus (PCR) (NotDetected) Anaplasma Smear See Comment Babesia Smear See Comment B. pertussis DNA (PCR) (NotDetected) B.parapertussis DNA PCR (NotDetected) C. pneumoniae DNA (PCR) (NotDetected) Coronavirus OC43 (PCR) (NotDetected) Coronavirus HKU1 (PCR) (NotDetected) Coronavirus 229E (PCR) (NotDetected) SARS-CoV-2 (PCR) (NotDetected) Coronavirus NL63 (PCR) (NotDetected) Human Metapneumovir PCR (NotDetected) Influenza Type A (PCR) (NotDetected) Influenza Type B (PCR) (NotDetected) M. pneumoniae (PCR) (NotDetected) Parainfluenza 1 (PCR) (NotDetected) Parainfluenza 2 (PCR) (NotDetected) Parainfluenza 3 (PCR) (NotDetected) Parainfluenza 4 (PCR) (NotDetected) RSV (PCR) (NotDetected) Entero/Rhino (PCR) (NotDetected) 09/03/22 Range/Units 13:08 WBC (4.8-10.8) K/ul RBC (4.63-6.08) M/uL Hgb (14.0-18.0) g/dl Hct (40.1-51.0) % MCV (80.0-100.0) fL MCH (25.0-34.0) pg MCHC (32.0-36.0) g/dL RDW Std Deviation (36.4-46.3) fL RDW Coeff of Jen (11.5-14.5) % Plt Count (130-400) K/uL MPV (9.4-12.4) fL Immature Gran % (Auto) % Neut % (Auto) % Lymph % (Auto) % Nuckolls % (Auto) % Eos % (Auto) % Baso % (Auto) % Neut # (Auto) (1.4-6.5) K/uL Lymph # (Auto) (1.2-3.4) K/uL Nuckolls # (Auto) (0.24-0.82) K/uL Eos # (Auto) (0-0.50) K/uL Baso # (Auto) (0-0.2) K/uL Immature Gran # (Auto) (0.00-0.02) K/uL Sodium (136-145) mmol/L Potassium (3.5-5.1) mmol/L Chloride (98-107) mmol/L Carbon Dioxide (21-32) mmol/L Anion Gap (3-11) BUN (6-23) mg/dl Creatinine (0.6-1.4) mg/dl Est Cr Clr Drug Dosing ml/min Est GFR ( Amer) ml/min Est GFR (Non-Af Amer) ml/min BUN/Creatinine Ratio (10-20) Glucose (70-99(Fasting)) mg/dl Calcium (8.5-10.1) mg/dl Magnesium (1.7-2.4) mg/dl Total Bilirubin (0.2-1.0) mg/dl AST (13-39) U/L ALT (7-52) U/L Alkaline Phosphatase (34-104) U/L Troponin I High Sens (0-20) pg/ml C-Reactive Protein (0-0.5) mg/dl Total Protein (6.0-8.3) gm/dl Albumin (3.4-5.0) gm/dl Globulin (2.5-4.0) gm/dl Albumin/Globulin Ratio (0.9-2) Adenovirus (PCR) Not Detected (NotDetected) Anaplasma Smear Babesia Smear B. pertussis DNA (PCR) Not Detected (NotDetected) B.parapertussis DNA PCR Not Detected (NotDetected) C. pneumoniae DNA (PCR) Not Detected (NotDetected) Coronavirus OC43 (PCR) Not Detected (NotDetected) Coronavirus HKU1 (PCR) Not Detected (NotDetected) Coronavirus 229E (PCR) Not Detected (NotDetected) SARS-CoV-2 (PCR) Not Detected (NotDetected) Coronavirus NL63 (PCR) Not Detected (NotDetected) Human Metapneumovir PCR Not Detected (NotDetected) Influenza Type A (PCR) Not Detected (NotDetected) Influenza Type B (PCR) Not Detected (NotDetected) M. pneumoniae (PCR) Not Detected (NotDetected) Parainfluenza 1 (PCR) Not Detected (NotDetected) Parainfluenza 2 (PCR) Not Detected (NotDetected) Parainfluenza 3 (PCR) Not Detected (NotDetected) Parainfluenza 4 (PCR) Not Detected (NotDetected) RSV (PCR) Not Detected (NotDetected) Entero/Rhino (PCR) Not Detected (NotDetected) Administered Medications Ceftriaxone Sodium 2,000 mg/ (Dextrose) 70 mls @ 100 mls/hr IV Q24H SHARI; Protocol Stop: 09/05/22 18:29 Last Admin: 09/03/22 18:38 Dose: 100 mls/hr Documented By: JACOB Discontinued Medications Albuterol (Albut/Ipratrop 3mg/0.5mg Neb 3 Ml Vial) 12 ml INH ONE STA Stop: 09/03/22 12:48 Last Admin: 09/03/22 13:37 Dose: 12 ml Documented By: RICKY Albuterol (Albut/Ipratrop 3mg/0.5mg Neb 3 Ml Vial) 12 ml NEB ONE ONE; Protocol Stop: 09/03/22 14:49 Last Admin: 09/03/22 14:54 Dose: 12 ml Documented By: NANY Sodium Chloride (Nss 1000ml) 1,000 mls @ 999 mls/hr IV .Q1H1M SHARI Stop: 09/03/22 14:00 Last Infusion: 09/03/22 14:04 Dose: 0 mls/hr Documented By: Admin: 09/03/22 13:04 Dose: 999 mls/hr Documented By: NANY Magnesium Sulfate/Dextrose (Magnesium Sulfate / D5w) 1 gm in 100 mls @ 200 mls/hr IV Q30M SHARI Stop: 09/03/22 13:59 Last Infusion: 09/03/22 14:19 Dose: 0 mls/hr Documented By: Admin: 09/03/22 13:49 Dose: 200 mls/hr Documented By: Infusion: 09/03/22 13:49 Dose: 0 mls/hr Documented By: Admin: 09/03/22 13:09 Dose: 200 mls/hr Documented By: NANY Sodium Chloride (Nss 1000ml) 1,000 mls @ 999 mls/hr IV .Q1H1M ONE Stop: 09/03/22 15:48 Last Infusion: 09/03/22 16:00 Dose: 0 mls/hr Documented By: Admin: 09/03/22 14:51 Dose: 999 mls/hr Documented By: NANY Methylprednisolone (Methylprednisolone 125 Mg/2 Ml Vial) 125 mg IV NOW STA Stop: 09/03/22 12:48 Last Admin: 09/03/22 13:04 Dose: 125 mg Documented By: NANY Imaging Data Radiologist's Impression: Chest X-Ray 09/03/22 12:47 SINGLE VIEW CHEST CLINICAL HISTORY: Dyspnea FINDINGS: An AP, portable, upright chest radiograph is compared to study dated 08/23/2022 and correlated with chest CT dated 08/04/2019. The cardiomediastinal silhouette is unremarkable. The lungs and pleural spaces are clear. No pneumothorax is seen. The bony thorax is grossly intact. IMPRESSION: No active disease in the chest. ACT 112: Negative or not required by law. Electronically signed by: Zacarias Ohara M.D. 09/03/2022 1:10 PM Discharge Plan Visit Data Chief Complaint: Illness Stated Complaint: BODY ACHES, AND SHORTNESS OF BREATH ED Provider: Ruddy Rodriguez Discharge Problem: Asthma with exacerbation, Acute dyspnea, Body aches Patient Disposition: Admitted As Inpatient Discharge Instructions Interventions: ED Discharge Assessment Last Done: 09/03/22 17:09
[2022-09-03] MEDS ORDERED: methylPREDNISolone 125 MG/2 ML VIAL IV STA (12:47)
[2022-09-03] MEDS ORDERED: ALBUT/IPRATROP 3MG/0.5MG NEB 3 ML VIAL INH STA (12:47)
[2022-09-03] MEDS ORDERED: SODIUM CHLORIDE 0.9% 1000ML 1,000 ML IV SCH (13:00)
[2022-09-03] MEDS: MAGNESIUM SULFATE / D5W 1 GM/100 ML BAG IV SCH ×2 (13:09→13:49)
[2022-09-03 13:10] LABS: Basophils # (auto) 0.05 K/uL (0-0.2); Basophils % (auto) 0.5 %; Eosinophils # (auto) 1.19 K/uL (0-0.50); Eosinophils % (auto) 11.6 %; Hematocrit (blood only) 43.1 % (40.1-51.0); Hemoglobin 14.7 g/dl (14.0-18.0); Immature Granulocytes # (auto) 0.03 K/uL (0.00-0.02); Immature Granulocytes % (auto) 0.3 %; Lymphocytes # (auto) 3.17 K/uL (1.2-3.4); Mean Corpuscular Hemoglobin 30.3 pg (25.0-34.0); Mean Corpuscular Hgb Conc 34.1 g/dL (32.0-36.0); Mean Corpuscular Volume 88.9 fL (80.0-100.0); Mean Platelet Volume 9.8 fL (9.4-12.4); Monocytes # (auto) 0.69 K/uL (0.24-0.82); Monocytes % (auto) 6.7 %; Neutrophils % (auto) 49.9 %; Platelet Count 302 K/uL (130-400); RDW Coefficient of Variation 13.2 % (11.5-14.5); RDW Standard Deviation 42.9 fL (36.4-46.3); Red Blood Count 4.85 M/uL (4.63-6.08); White Blood Count 10.23 K/ul (4.8-10.8)
--- NOTE | 2022-09-03 13:12 | XRay Report ---
SINGLE VIEW CHEST CLINICAL HISTORY: Dyspnea FINDINGS: An AP, portable, upright chest radiograph is compared to study dated 08/23/2022 and correla nadia with chest CT dated 08/04/2019. The cardiomediastinal silhouette is unremarkable. The lungs and p leural spaces are clear. No pneumothorax is seen. The bony thorax is grossly intact. IMPRESSION: No active disease in the chest. ACT 112: Negative or not required by law. Electronically signed by: Zacarias Ohara M.D. 09/03/2022 1:10 PM
[2022-09-03 13:29] LABS: BUN Creatinine Ratio 13.2 (10-20); Bilirubin,Total 0.2 mg/dl (0.2-1.0); Calcium 9.2 mg/dl (8.5-10.1); Creatinine Clr Calc Pharmacy 97.2 ml/min; Est GFR (African American) 91.9 ml/min; Est GFR (Non-African American) 79.3 ml/min; Magnesium 2.1 mg/dl (1.7-2.4)
[2022-09-03 13:36] LABS: Troponin I High Sensitivity 2.7 pg/ml (0-20)
[2022-09-03 14:07] LABS: Adenovirus PCR Not Detected (NotDetected); Bordetella parapertussis PCR Not Detected (NotDetected); Bordetella pertussis PCR Not Detected (NotDetected); Chlamydia pneumoniae PCR Not Detected (NotDetected); Coronavirus 229E PCR Not Detected (NotDetected); Coronavirus CoV-2 (COVID19)PCR Not Detected (NotDetected); Coronavirus HKU1 PCR Not Detected (NotDetected); Coronavirus NL63 PCR Not Detected (NotDetected); Coronavirus OC43PCR Not Detected (NotDetected); Human Metapneumovirus PCR Not Detected (NotDetected); Influenza A PCR Not Detected (NotDetected); Influenza B PCR Not Detected (NotDetected); Mycoplasma pneumoniae PCR Not Detected (NotDetected); Parainfluenza Virus 1 PCR Not Detected (NotDetected); Parainfluenza Virus 2 PCR Not Detected (NotDetected); Parainfluenza Virus 3 PCR Not Detected (NotDetected); Parainfluenza Virus 4 PCR Not Detected (NotDetected); Respiratory Syncytial VirusPCR Not Detected (NotDetected); Rhinovirus/Enterovirus PCR Not Detected (NotDetected)
[2022-09-03] MEDS ORDERED: SODIUM CHLORIDE 0.9% 1000ML 1,000 ML IV ONE (14:48)
[2022-09-03] MEDS ORDERED: ALBUT/IPRATROP 3MG/0.5MG NEB 3 ML VIAL NEB ONE (14:48)
--- NOTE | 2022-09-03 16:13 | History & Physical Report ---
Date of Service September 03, 2022 Assessment & Plan (1) Asthma with exacerbation: Plan: History of asthma with recent exacerbation requiring hospitalization. Currently on fluticasone inhaler Chest x-ray unremarkable for any findings Respiratory viral panel negative Plan; Continue duo nebs every 4 hour. -Started on methylprednisolone 40 mg twice daily; will switch to oral after patient is symptomatically better. -Will need pulmonology referral for asthma management. Will discuss regarding inhaler use at discharge. (2) Fever: Plan: Reports flulike illness with myalgia fever, chills. Respiratory viral panel negative Also has rash on dorsal aspect of bilateral hands which are itchy Plan; -Start on empiric ceftriaxone and doxycycline. Obtain blood culture. -Obtain Lyme disease profile along with rickettsial disease. -Obtain RPR. -We will follow-up on above-mentioned studies. -Repeat blood culture if febrile. Plan Chronic conditions; History of depression, anxietybuspirone, Lexapro DVT Heparin Full code History of Present Illness Chief Complaint: Flulike symptoms for 4 days Shortness of breath for 2 days Primary Care Provider: Elidia Scales MD PMHx of opioid abuse ( last use 8 years back), candidal meningitis, Kirsten endophthalmitis, asthma presents to the emergency department with 4 days of flulike symptoms and 2 days of shortness of breath. Last admission 2 weeks back with asthma exacerbation Patient reports he has been having body aches which includes his calf muscle, shoulders since last 4 days He also reports having subjective fever and chills since last 4 days. Has not measured her temperature at home. Also report rash on his bilateral hands which are itchy. He has not traveled anywhere recently, no tick bite or hiking Reports shortness of breath for last 2 days; has been using his inhaler which has not helped him. In the ED, he was normotensive, afebrile and saturating at 97% on room air. He was given duo nebs, magnesium. Respiratory viral panel was negative. Chest x- ray does not show any acute abnormality. CBC and BMP are unremarkable. Patient continued to have wheeze after 1 hour treatment with DuoNeb. Admitted to floor for further care. Allergies Allergy/AdvReac Type Severity Reaction Status Date / Time No Known Allergies Allergy Verified 02/12/22 08:54 Home Medications Medication Instructions Recorded Confirmed Type albuterol sulfate 90 mcg/actuation 2 puff inhalation Q6H PRN 12/07/18 09/03/22 History aerosol inhaler (Ventolin HFA) Shortness Of Breath Or Wheezing ipratropium 0.5 mg-albuterol 3 mg 3 ml inhalation DIRECTED PRN 09/27/21 09/03/22 History (2.5 mg base)/3 mL nebulization Shortness Of Breath Or Wheezing soln montelukast 10 mg tablet 10 mg PO QAM 09/27/21 09/03/22 History fluticasone propionate 110 2 puff inhalation BID #1 g 04/19/22 09/03/22 Rx mcg/actuation HFA aerosol inhaler (Flovent HFA) buspirone 10 mg tablet 10 mg PO BID 08/23/22 09/03/22 History dextromethorphan-guaifenesin 10 1 tab-cap PO Q8H PRN cough #20 caps 08/23/22 09/03/22 Rx mg-200 mg capsule (Robitussin Cough-Chest Congestion DM) escitalopram oxalate 20 mg tablet 20 mg PO DAILY 08/23/22 09/03/22 History Past Med/Surg History Medical History (Updated 09/03/22 @ 16:09 by John Tobar MD) Anxiety Asthma (03/13/13) Asthma exacerbation H/O drug abuse "Denies heroin use since 2013 " Hx of meningitis "Kirsten. Had seizures with this.-Resolved, no longer follows with neurology " Seasonal allergic conjunctivitis (03/13/13) Suicidal ideations Surgical History H/O esophagogastroduodenoscopy Family History Other No pertinent family history in first degree relatives Social History (Updated 09/03/22 @ 12:50 by Ruddy Rodriguez MD) Smoking Status: Former smoker Cigarettes Per Day: 1/2 Pack a Day; Second Hand Exposure: No; Hx Substance Use: No Preferred Language: Spanish Communication Ability: Effective Project Management Required: No Beliefs That Will Affect Care: None Current Living Situation: Spouse Feels Safe at Home: Yes Assistive Devices: None Review of Systems Review of Systems: All systems reviewed & are unremarkable except as noted in Subjective Physical Exam Physical Exam: Constitutional: WD/WN, vitals as above, NAD, sitting up in bed, pleasant, conversing easily Neck: trachea midline, no thyromegaly normal visual inspection Respiratory: Bilateral wheezes heard with prolonged expiration. Cardiovascular: RRR, no murmur, no edema Vessels: no JVD or carotid bruit Chest: normal inspection of chest Abdomen: normal bowel sounds, soft, nontender, no hepatosplenomegaly Musculoskeletal: no cyanosis or clubbing, extremities motor strength 5/5 Skin: Rash present on bilateral dorsal aspect of hands. Neurologic: PERRL, EOMI, accommodation nl, no face palsy, no dysarthria CN's II- XI intact bilaterally and moves all extremities Psychiatric: A+Ox3, euthymic affect Lymphatic: no cervical or axillary lymphadenopathy : deferred Results & Data Results & Data ([facility]) Vital Signs (Past 12 Hours) Vital Signs Temp Pulse Pulse Resp BP BP Pulse Ox 09/03/22 14:56 99 H 18 93 09/03/22 13:50 95 H 20 134/90 87 L 09/03/22 13:38 84 16 92 09/03/22 13:00 109 H 91 09/03/22 12:47 102 H 24 153/108 H 93 09/03/22 12:39 36.5 C 112 H 18 156/92 H 96 O2 Del Method 09/03/22 14:56 Room Air 09/03/22 13:50 Room Air 09/03/22 13:38 Room Air 09/03/22 13:00 Room Air 09/03/22 12:47 09/03/22 12:39 Room Air Laboratory Results Laboratory Results WBC 10.23 K/ul (4.8-10.8) 09/03/22 13:00 RBC 4.85 M/uL (4.63-6.08) 09/03/22 13:00 Hgb 14.7 g/dl (14.0-18.0) 09/03/22 13:00 Hct 43.1 % (40.1-51.0) 09/03/22 13:00 MCV 88.9 fL (80.0-100.0) 09/03/22 13:00 MCH 30.3 pg (25.0-34.0) 09/03/22 13:00 MCHC 34.1 g/dL (32.0-36.0) 09/03/22 13:00 RDW Std Deviation 42.9 fL (36.4-46.3) 09/03/22 13:00 RDW Coeff of Jen 13.2 % (11.5-14.5) 09/03/22 13:00 Plt Count 302 K/uL (130-400) 09/03/22 13:00 MPV 9.8 fL (9.4-12.4) 09/03/22 13:00 Immature Gran % (Auto) 0.3 % 09/03/22 13:00 Neut % (Auto) 49.9 % 09/03/22 13:00 Lymph % (Auto) 31.0 % 09/03/22 13:00 Ellis % (Auto) 6.7 % 09/03/22 13:00 Eos % (Auto) 11.6 % 09/03/22 13:00 Baso % (Auto) 0.5 % 09/03/22 13:00 Neut # (Auto) 5.10 K/uL (1.4-6.5) 09/03/22 13:00 Lymph # (Auto) 3.17 K/uL (1.2-3.4) 09/03/22 13:00 Ellis # (Auto) 0.69 K/uL (0.24-0.82) 09/03/22 13:00 Eos # (Auto) 1.19 K/uL (0-0.50) H 09/03/22 13:00 Baso # (Auto) 0.05 K/uL (0-0.2) 09/03/22 13:00 Immature Gran # (Auto) 0.03 K/uL (0.00-0.02) H 09/03/22 13:00 Sodium 139 mmol/L (136-145) 09/03/22 13:00 Potassium 4.0 mmol/L (3.5-5.1) 09/03/22 13:00 Chloride 107 mmol/L (98-107) 09/03/22 13:00 Carbon Dioxide 27 mmol/L (21-32) 09/03/22 13:00 Anion Gap 5 (3-11) 09/03/22 13:00 BUN 16 mg/dl (6-23) 09/03/22 13:00 Creatinine 1.21 mg/dl (0.6-1.4) 09/03/22 13:00 Est Cr Clr Drug Dosing 97.2 ml/min 09/03/22 13:00 Est GFR ( Amer) 91.9 ml/min 09/03/22 13:00 Est GFR (Non-Af Amer) 79.3 ml/min 09/03/22 13:00 BUN/Creatinine Ratio 13.2 (10-20) 09/03/22 13:00 Glucose 115 mg/dl (70-99(Fasting)) H 09/03/22 13:00 Calcium 9.2 mg/dl (8.5-10.1) 09/03/22 13:00 Magnesium 2.1 mg/dl (1.7-2.4) 09/03/22 13:00 Total Bilirubin 0.2 mg/dl (0.2-1.0) 09/03/22 13:00 AST 17 U/L (13-39) 09/03/22 13:00 ALT 18 U/L (7-52) 09/03/22 13:00 Alkaline Phosphatase 61 U/L (34-104) 09/03/22 13:00 Troponin I High Sens 2.7 pg/ml (0-20) 09/03/22 13:00 C-Reactive Protein 0.54 mg/dl (0-0.5) H 09/03/22 13:00 Total Protein 6.0 gm/dl (6.0-8.3) 09/03/22 13:00 Albumin 4.0 gm/dl (3.4-5.0) 09/03/22 13:00 Globulin 2.0 gm/dl (2.5-4.0) L 09/03/22 13:00 Albumin/Globulin Ratio 2.0 (0.9-2) 09/03/22 13:00 Adenovirus (PCR) Not Detected (NotDetected) 09/03/22 13:08 B. pertussis DNA (PCR) Not Detected (NotDetected) 09/03/22 13:08 B.parapertussis DNA PCR Not Detected (NotDetected) 09/03/22 13:08 C. pneumoniae DNA (PCR) Not Detected (NotDetected) 09/03/22 13:08 Coronavirus OC43 (PCR) Not Detected (NotDetected) 09/03/22 13:08 Coronavirus HKU1 (PCR) Not Detected (NotDetected) 09/03/22 13:08 Coronavirus 229E (PCR) Not Detected (NotDetected) 09/03/22 13:08 SARS-CoV-2 (PCR) Not Detected (NotDetected) 09/03/22 13:08 Coronavirus NL63 (PCR) Not Detected (NotDetected) 09/03/22 13:08 Human Metapneumovir PCR Not Detected (NotDetected) 09/03/22 13:08 Influenza Type A (PCR) Not Detected (NotDetected) 09/03/22 13:08 Influenza Type B (PCR) Not Detected (NotDetected) 09/03/22 13:08 M. pneumoniae (PCR) Not Detected (NotDetected) 09/03/22 13:08 Parainfluenza 1 (PCR) Not Detected (NotDetected) 09/03/22 13:08 Parainfluenza 2 (PCR) Not Detected (NotDetected) 09/03/22 13:08 Parainfluenza 3 (PCR) Not Detected (NotDetected) 09/03/22 13:08 Parainfluenza 4 (PCR) Not Detected (NotDetected) 09/03/22 13:08 RSV (PCR) Not Detected (NotDetected) 09/03/22 13:08 Entero/Rhino (PCR) Not Detected (NotDetected) 09/03/22 13:08 Impressions Chest X-Ray 09/03/22 12:47 SINGLE VIEW CHEST CLINICAL HISTORY: Dyspnea FINDINGS: An AP, portable, upright chest radiograph is compared to study dated 08/23/2022 and correlated with chest CT dated 08/04/2019. The cardiomediastinal silhouette is unremarkable. The lungs and pleural spaces are clear. No pneumothorax is seen. The bony thorax is grossly intact. IMPRESSION: No active disease in the chest. ACT 112: Negative or not required by law. Electronically signed by: Zacarias Ohara M.D. 09/03/2022 1:10 PM Code Status & VTE Plan VTE Prophylaxis Plan VTE Prophylaxis will be ordered: Yes (1) Asthma with exacerbation Asthma persistence: persistent Asthma severity: severe Qualified Code(s): J45.51 - Severe persistent asthma with (acute) exacerbation
[2022-09-03 17:16] LABS: Lyme Ab IgM w/WB Rflx Negative (Negative)
[2022-09-03 17:29] LABS: Lyme Ab IgG w/WB Rflx Negative (Negative)
[2022-09-03] MEDS ORDERED: POLYETHYLENE (MIRALAX) 17 GM PACK PO PRN (17:59)
[2022-09-03] MEDS ORDERED: ACETAMINOPHEN 325 MG TAB PO PRN (17:59)
[2022-09-03 18:01] LABS: Procalcitonin < 0.05 ng/ml (0-0.5)
[2022-09-03] MEDS: MONTELUKAST SODIUM 10 MG TABLET PO SCH ×2 (18:19→20:40)
[2022-09-03] MEDS ORDERED: cefTRIAXone SODIUM 2,000 MG in DEXTROSE 5% 50 ML IV SCH (18:30)
[2022-09-03] MEDS: ALBUT/IPRATROP 3MG/0.5MG NEB 3 ML VIAL NEB SCH ×2 (19:27→23:15)
[2022-09-03] MEDS: FLUTICASONE HFA 110MCG INHALER INH SCH (20:39)
[2022-09-03] MEDS: methylPREDNISolone 40 MG in SYRINGE 0 ML IV SCH (20:40)
[2022-09-03] MEDS: busPIRone 5 MG TAB PO SCH (20:40)
[2022-09-03] MEDS: DOXYCYCLINE HYCLATE 100 MG CAP PO SCH (20:40)
[2022-09-04] MEDS: ALBUT/IPRATROP 3MG/0.5MG NEB 3 ML VIAL NEB SCH ×3 (03:40→11:25)
[2022-09-04] MEDS: FLUTICASONE HFA 110MCG INHALER INH SCH (07:37)
[2022-09-04] MEDS ORDERED: NAPROXEN 250 MG TAB PO STA (07:47)
[2022-09-04 07:51] LABS: Basophils # (auto) 0.03 K/uL (0-0.2); Basophils % (auto) 0.1 %; Hematocrit (blood only) 46.6 % (40.1-51.0); Hemoglobin 15.7 g/dl (14.0-18.0); Immature Granulocytes # (auto) 0.22 K/uL (0.00-0.02); Immature Granulocytes % (auto) 0.9 %; Lymphocytes # (auto) 1.29 K/uL (1.2-3.4); Lymphocytes % (auto) 5.6 %; Mean Corpuscular Hemoglobin 29.9 pg (25.0-34.0); Mean Corpuscular Hgb Conc 33.7 g/dL (32.0-36.0); Mean Corpuscular Volume 88.8 fL (80.0-100.0); Monocytes # (auto) 0.77 K/uL (0.24-0.82); Monocytes % (auto) 3.3 %; Neutrophils # (auto) 20.91 K/uL (1.4-6.5); Neutrophils % (auto) 90.1 %; Platelet Count 333 K/uL (130-400); RDW Coefficient of Variation 13.4 % (11.5-14.5); RDW Standard Deviation 43.8 fL (36.4-46.3); Red Blood Count 5.25 M/uL (4.63-6.08); White Blood Count 23.22 K/ul (4.8-10.8)
[2022-09-04 07:57] LABS: Albumin Globulin Ratio 1.9 (0.9-2); Albumin Level 4.3 gm/dl (3.4-5.0); BUN Creatinine Ratio 16.7 (10-20); Bilirubin,Total 0.4 mg/dl (0.2-1.0); Calcium 9.5 mg/dl (8.5-10.1); Creatinine Clr Calc Pharmacy 140.1 ml/min; Est GFR (African American) 135.2 ml/min; Est GFR (Non-African American) 116.7 ml/min; Globulin 2.3 gm/dl (2.5-4.0); Potassium 4.4 mmol/L (3.5-5.1); Total Protein 6.6 gm/dl (6.0-8.3)
[2022-09-04] MEDS: busPIRone 5 MG TAB PO SCH (08:22)
[2022-09-04] MEDS: DOXYCYCLINE HYCLATE 100 MG CAP PO SCH (08:22)
[2022-09-04] MEDS: methylPREDNISolone 40 MG in SYRINGE 0 ML IV SCH (08:22)
[2022-09-04] MEDS ORDERED: ESCITALOPRAM OXALATE 20 MG TAB PO SCH (09:00)
[2022-09-04] MEDS ORDERED: ENOXAPARIN INJ 40 MG/0.4 ML SYR SQ SCH (09:15)
--- NOTE | 2022-09-04 10:03 | Electrocardiogram Report ---
Test Reason : Blood Pressure : / mmHG Vent. Rate : 102 BPM Atrial Rate : 102 BPM P-R Int : 130 ms QRS Dur : 100 ms QT Int : 352 ms P-R-T Axes : 047 065 019 degrees QTc Int : 458 ms Sinus tachycardia Incomplete right bundle branch block Borderline ECG When compared with ECG of 23-AUG-2022 01:02, No significant change was found Confirmed by Rodríguez Villaseñor ([id number]) on 09/04/2022 10:03:06 AM Referred By: REFERRED SELF Confirmed By:Rodríguez Villaseñor
--- NOTE | 2022-09-04 13:48 | Discharge Summary ---
Date of Service September 04, 2022 Admission HPI Per Admitting Provider PMHx of opioid abuse ( last use 8 years back), candidal meningitis, Kirsten endophthalmitis, asthma presents to the emergency department with 4 days of flulike symptoms and 2 days of shortness of breath. Last admission 2 weeks back with asthma exacerbation Patient reports he has been having body aches which includes his calf muscle, shoulders since last 4 days He also reports having subjective fever and chills since last 4 days. Has not measured her temperature at home. Also report rash on his bilateral hands which are itchy. He has not traveled anywhere recently, no tick bite or hiking Reports shortness of breath for last 2 days; has been using his inhaler which has not helped him. In the ED, he was normotensive, afebrile and saturating at 97% on room air. He was given duo nebs, magnesium. Respiratory viral panel was negative. Chest x- ray does not show any acute abnormality. CBC and BMP are unremarkable. Patient continued to have wheeze after 1 hour treatment with DuoNeb. Admitted to floor for further care. Admission Exam Per Admitting Provider Constitutional: WD/WN, vitals as above, NAD, sitting up in bed, pleasant, conversing easily Neck: trachea midline, no thyromegaly normal visual inspection Respiratory: Bilateral wheezes heard with prolonged expiration. Cardiovascular: RRR, no murmur, no edema Vessels: no JVD or carotid bruit Chest: normal inspection of chest Abdomen: normal bowel sounds, soft, nontender, no hepatosplenomegaly Musculoskeletal: no cyanosis or clubbing, extremities motor strength 5/5 Skin: Rash present on bilateral dorsal aspect of hands. Neurologic: PERRL, EOMI, accommodation nl, no face palsy, no dysarthria CN's II- XI intact bilaterally and moves all extremities Psychiatric: A+Ox3, euthymic affect Lymphatic: no cervical or axillary lymphadenopathy : deferred Principal Diagnosis Asthma with exacerbation Flulike symptoms Discharge Exam Constitutional: WD/WN, vitals as above, NAD, sitting up in bed, pleasant, conversing easily Neck: trachea midline, no thyromegaly normal visual inspection Respiratory: Occasional wheeze. Cardiovascular: RRR, no murmur, no edema Vessels: no JVD or carotid bruit Chest: normal inspection of chest Abdomen: normal bowel sounds, soft, nontender, no hepatosplenomegaly Musculoskeletal: no cyanosis or clubbing, extremities motor strength 5/5 Skin: Rash present on bilateral dorsal aspect of hands. Neurologic: PERRL, EOMI, accommodation nl, no face palsy, no dysarthria CN's II- XI intact bilaterally and moves all extremities Psychiatric: A+Ox3, euthymic affect Lymphatic: no cervical or axillary lymphadenopathy : deferred Discharge Data Allergies Allergy/AdvReac Type Severity Reaction Status Date / Time No Known Allergies Allergy Verified 02/12/22 08:54 Consultations 09/03/22 14:48 ED Decision to Admit Stat Hospital Course (1) Asthma with exacerbation: (2) Body aches: Plan Patient with past medical history of asthma presented to the hospital with increased shortness of breath and flulike symptoms. In the ED, he was hypoxic with oxygen saturation of 87% on room air. On examination, he had bilateral wheezes. Chest x-ray did not show any significant abnormality. Respiratory viral panel is negative as well. Patient was admitted to the hospital for persistent wheeze despite hour-long treatment in the ED. He had recent hospitalization 2 weeks back for similar complaint. After admission to the medical floor, patient was treated with [id number] duo nebs, IV methylprednisolone. Patient also reported flulike illness for which Lyme and rickettsial panel was sent. Blood culture was also sent. Patient was afebrile throughout his hospitalization. On the day of the discharge, patient reported improvement in his symptoms and was feeling much better. He was prescribed Adv air Diskus for stepup therapy for his asthma exacerbation. He was also given 4 days of prednisone 40 mg once daily. For his flulike symptoms, patient was given 5 more days of doxycycline and cefdinir. Some of the work-up was still pending and patient was informed regarding the pending lab work. Patient insistent of going home and assured that he will follow-up with his primary care doctor. Appointment with his primary care doctor was set up for next week. He was asked to get pulmonology referral to establish care and to obtain PFTs given his frequent exacerbations. Total Time Total Time Spent Total Time Spent (In Minutes): 35 Total Time Includes: Examination of the Patient, Discharge Planning, Medication Reconciliation, Communication With Other Providers and Other Discharge Plan Discharge Items Patient Disposition: Home - Self-Care Reason For Visit: ASTHMA, FEBRILE ILLNESS Discharge Diagnosis: Asthma with exacerbation Flu like symptoms Activity: Resume your previous activity Non-emergency contact: Primary Care Provider Call non-emergency contact if: you have any medication questions Follow-up/Referrals: Elidia Scales MD [Primary Care Provider] - Diet: Regular Addtl Attending Provider Instructions: You were admitted to the hospital with asthma exacerbation and flulike illness. For your asthma exacerbation, you are prescribed a new inhaler. Please use it as directed. You are also prescribed 4 more days of prednisone 40 mg once zahida y. For the flulike illness, you have some lab work which is pending. You are prescribed 5 days of doxycycline and cefdinir prophylactically. You have a follow-up appointment with the primary care doctor ( Dr. Scales) at [facility] on August 08Wednesday at 2 PM. You will need pulmonology referral from your primary care doctor given frequent exacerbation. Pending Studies at Discharge: Yes Stand-Alone Forms: My [facility] [employer], Smoking Cessation Medications and DC Order Prescriptions: New doxycycline hyclate 100 mg Capsule 100 mg PO BID Qty: 10 0RF cefdinir 300 mg capsule 300 mg PO BID 5 Days Qty: 10 0RF prednisone 20 mg tablet 40 mg PO DAILY 4 Days Qty: 8 0RF fluticasone propion-salmeterol [Advair Diskus] 100-50 mcg/dose blister with device 1 inh inhalation BID Qty: 60 0RF Continued albuterol sulfate [Ventolin HFA] 90 mcg/actuation Hfa Aerosol Inhaler 2 puff INHALATION Q6H PRN (Reason: Shortness Of Breath Or Wheezing) ipratropium-albuterol 0.5 mg-3 mg(2.5 mg base)/3 mL solution for nebulization 3 ml INHALATION DIRECTED PRN (Reason: Shortness Of Breath Or Wheezing) montelukast 10 mg tablet 10 mg PO QAM buspirone 10 mg tablet 10 mg PO BID escitalopram oxalate 20 mg tablet 20 mg PO DAILY Robitussin Cough-Chest Jasbir DM 10-200 mg capsule 1 tab-cap PO Q8H PRN (Reason: cough) Qty: 20 0RF Discontinued fluticasone propionate [Flovent HFA] 110 mcg/actuation Hfa Aerosol Inhaler 2 puff inhalation BID Qty: 1 0RF Discharge Orders: Discharge Order (Routine); Ordered 09/04/22 Ordered By: John Tobar Admission Data Admit Date/Time: 09/03/22 15:12 Attending Provider: John Tobar Admmaureen Provider: John Tobar Primary Care Provider: Elidia Scales Other Providers: John Tobar Other Interventions: Discharge Summary Assessment (RN) Last Done: 09/04/22 11:36
--- NOTE | 2022-09-04 15:32 | Electrocardiogram Report ---
Test Reason : Blood Pressure : / mmHG Vent. Rate : 092 BPM Atrial Rate : 092 BPM P-R Int : 136 ms QRS Dur : 096 ms QT Int : 360 ms P-R-T Axes : 035 058 029 degrees QTc Int : 445 ms Normal sinus rhythm Normal ECG When compared with ECG of 03-SEP-2022 12:54, No significant change was found Confirmed by Rodríguez Villaseñor ([id number]) on 09/04/2022 3:31:54 PM Referred By: REFERRED SELF Confirmed By:Rodríguez Villaseñor
[2022-09-05 01:04] LABS: Rapid Plasma Reagin Nonreactive (Nonreactive)
[2022-09-08 23:36] LABS: Babesia microti DNA Not Detected (Not Detected); Q Fever IgG, Phase I NEGATIVE; Q Fever Phase I IgM Antibody NEGATIVE; Q Fever Phase II IgG Antibody NEGATIVE; Q Fever Phase II IgM Antibody NEGATIVE; R. typhi IgG Ab NOT DETECTED; R. typhi IgM Ab NOT DETECTED; RMSF IgG Ab NOT DETECTED; RMSF IgM Ab NOT DETECTED
== END 2022-09-04 11:49 | disposition home or self-care (01) | DRG 203 ==
LOC: ED 12:36 → 3W 15:12 → INTOOBSV 15:12 → 3W 17:09

== ENCOUNTER 2024-01-03 22:26 | Inpatient (IN) ==
[2024-01-03 22:55] LABS: Basophils # (auto) 0.07 K/uL (0.00-0.20); Basophils % (auto) 0.5 %; Eosinophils # (auto) 1.37 K/uL (0.00-0.50); Eosinophils % (auto) 10.1 %; Hematocrit (blood only) 45.7 % (42.0-52.0); Immature Granulocytes # (auto) 0.05 K/uL (0.01-0.20); Immature Granulocytes % (auto) 0.4 %; Lymphocytes # (auto) 4.43 K/uL (1.20-3.40); Lymphocytes % (auto) 32.7 %; Mean Corpuscular Hemoglobin 31.1 pg (25.0-34.0); Mean Corpuscular Volume 88.9 fL (80.0-100.0); Mean Platelet Volume 9.6 fL (9.4-12.4); Monocytes # (auto) 0.89 K/uL (0.11-0.59); Monocytes % (auto) 6.6 %; Neutrophils # (auto) 6.74 K/uL (1.40-6.50); Neutrophils % (auto) 49.7 %; Platelet Count 349 K/uL (130-400); RDW Coefficient of Variation 12.5 % (11.5-14.5); RDW Standard Deviation 40.6 fL (36.4-46.3); Red Blood Count 5.14 M/uL (4.70-6.10); White Blood Count 13.55 K/ul (4.8-10.8)
[2024-01-04 00:05] LABS: Adenovirus PCR Not Detected (NotDetected); Bordetella parapertussis PCR Not Detected (NotDetected); Bordetella pertussis PCR Not Detected (NotDetected); Chlamydia pneumoniae PCR Not Detected (NotDetected); Coronavirus 229E PCR Not Detected (NotDetected); Coronavirus CoV-2 (COVID19)PCR DETECTED (NotDetected); Coronavirus HKU1 PCR Not Detected (NotDetected); Coronavirus NL63 PCR Not Detected (NotDetected); Coronavirus OC43PCR Not Detected (NotDetected); Human Metapneumovirus PCR Not Detected (NotDetected); Influenza A PCR Not Detected (NotDetected); Influenza B PCR Not Detected (NotDetected); Mycoplasma pneumoniae PCR Not Detected (NotDetected); Parainfluenza Virus 1 PCR Not Detected (NotDetected); Parainfluenza Virus 2 PCR Not Detected (NotDetected); Parainfluenza Virus 3 PCR Not Detected (NotDetected); Parainfluenza Virus 4 PCR Not Detected (NotDetected); Respiratory Syncytial VirusPCR Not Detected (NotDetected); Rhinovirus/Enterovirus PCR Not Detected (NotDetected)
[2024-01-04 00:46] LABS: Albumin Globulin Ratio 1.8 (0.9-2); Albumin Level 4.5 gm/dl (3.4-5.0); BUN Creatinine Ratio 18.2 (10-20); Bilirubin,Total 0.3 mg/dl (0.2-1.0); Calcium 9.4 mg/dl (8.6-10.3); Est GFR (African American) 78.5 ml/min; Est GFR (Non-African American) 67.8 ml/min; Globulin 2.5 gm/dl (2.5-4.0); Potassium 4.1 mmol/L (3.5-5.1); Troponin I High Sensitivity 5.1 pg/ml (0-20)
[2024-01-04 01:06] LABS: INR 0.9 (0.9-1.1); Partial Thromboplastin Time 28 Seconds (21-31)
--- NOTE | 2024-01-04 01:16 | Emergency Department Note ---
Impression & Plan COVID-19, Asthma, Hypoxia ED Provider Note NAME: MAGDALENA LARES AGE: 33 SEX: M : 1990 ARRIVES VIA: Walk-In INFORMANT: Patient ED PROVIDER(S): Jaskaran Landrum MD CHIEF COMPLAINT: Shortness of breath. PLAN: Disposition: Admit MEDICAL DECISION MAKING: The patient is a pleasant 33-year-old gentleman with a past medical history of asthma, mood disorder, GERD who presents to the emergency department via walk-in for evaluation of worsening cough congestion shortness of breath over the past couple weeks with generalized bodyaches. He reports pain in his chest with deep inspiration. He denies any personal or family history of blood clots. He denies nausea, vomit, diarrhea. Of note, the patient did arrive to emergency department during time of high volume, acuity and prolonged emergency department waiting times. Critical pathways initiated from triage. The patient presented to the emergency department afebrile with stable vital signs. However upon arriving to the B-pod room it was noted the patient is hypoxic to 88% on room air and was so was placed on 2 L nasal cannula. On my examination the patient was uncomfortable appearing with diffuse wheezes bilateral lung virk with increased work of breathing. Treatment was initiated with IV fluid hydration, dexamethasone, guaifenesin and DuoNeb. WBC 13.5 K, nonspecific. H/H and platelets within normal limits. Chemistry without metabolic acidosis. LFTs unremarkable. High-sensitivity troponin 5.1, within normal limits. Respiratory viral panel/[employer] was positive for COVID- 19. Given the patient's pleuritic chest pain CTA of the chest was performed and was negative for PE or focal consolidation. Given the patient's hypoxia and symptoms COVID-19 patient does agree with plan for admission for further management. Case was discussed with Dr. Martínez, [facility] hospitalist who will evaluate the patient for admission. Further management per admitting team. Triage Nursing notes reviewed and agree them. Prior/external medical records reviewed Vital Signs: reviewed Differential diagnosis: Reactive airway disease, pneumonia, pneumothorax, COPD, CHF, infections, cardiac ischemia, pulmonary embolism, musculoskeletal, gastrointestinal, as well as other pathologies. ER treatment provided: See below. Diagnostics interpreted by me: ECG: Sinus tachycardia, 103 bpm, no ectopy, no overt ST elevation or depression, QTc 445 QRS 96 Cardiac Monitoring: An order for continuous cardiac monitoring was placed and demonstrated Sinus tachycardia, 103 bpm, no ectopy. Laboratory studies: See below Imaging studies: See below Consultation(s): [facility]. HPI: The patient is a pleasant 33-year-old gentleman with a past medical history of asthma, mood disorder, GERD who presents to the emergency department via walk-in for evaluation of worsening cough congestion shortness of breath over the past couple weeks with generalized bodyaches. He reports pain in his chest with deep inspiration. He denies any personal or family history of blood clots. He denies nausea, vomit, diarrhea. ROS: See above HPI for pertinent positives & negatives. A total of 10 systems reviewed and were otherwise negative. VITALS:See Below PHYSICAL EXAMINATION: GENERAL: Awake, alert, fatigued-appearing, in no distress HENT: Normocephalic, atraumatic. Oropharynx with dry mucous membranes and otherwise unremarkable. EYES: Normal conjunctiva. Sclera non-icteric. NECK: Supple. No nuchal rigidity. FROM. No JVD. RESPIRATORY: Wheezes bilateral lung virk with mild increased work of breathing but no acute distress CARDIAC: Tachycardic rate, normal rhythm. Extremities warm and well perfused. Pulses equal. ABDOMEN: Soft, non-distended. No tenderness to palpation. No rebound or guarding. No masses. RECTAL: Deferred. MUSCULOSKELETAL: Chest examination reveals no tenderness. The back is symmetrical on inspection without obvious abnormality. There is no CVA tenderness to palpation. No joint edema. LOWER EXTREMITIES: Calves are equal size bilaterally and non-tender. No edema. No discoloration. NEURO: Normal sensorium. No sensory or motor deficits noted. SKIN: No rash or jaundice noted. Jaskaran Landrum MD Past Med/Surg History Medical History Asthma with exacerbation Suicidal ideations Asthma exacerbation Asthma (03/13/13) H/O drug abuse "Denies heroin use since 2013 " Anxiety Hx of meningitis "Kirsten. Had seizures with this.-Resolved, no longer follows with neurology " Seasonal allergic conjunctivitis (03/13/13) Surgical History H/O esophagogastroduodenoscopy Family History Other No pertinent family history in first degree relatives Social History Smoking Status: Never smoker Cigarettes Per Day: 1/2 Pack a Day; Second Hand Exposure: No; Hx Alcohol Use: No Hx Substance Use: No Preferred Language: Bengali Communication Ability: Effective Explosives Handler Required: No Beliefs That Will Affect Care: None Current Living Situation: Alone Feels Safe at Home: Yes Assistive Devices: None Allergies Allergies Allergy/AdvReac Type Severity Reaction Status Date / Time No Known Allergies Allergy Verified 01/04/24 00:15 Home Meds Home Medications Medication Instructions Recorded Confirmed albuterol sulfate 90 mcg/actuation 2 puff inhalation Q6H PRN 12/07/18 01/04/24 aerosol inhaler (Ventolin HFA) Shortness Of Breath Or Wheezing ipratropium 0.5 mg-albuterol 3 mg 3 ml inhalation DIRECTED PRN 09/27/21 01/04/24 (2.5 mg base)/3 mL nebulization Shortness Of Breath Or Wheezing soln escitalopram oxalate 20 mg tablet 20 mg PO DAILY 08/23/22 01/04/24 amoxicillin 875 mg-potassium 1 tab PO BID 01/04/24 01/04/24 clavulanate 125 mg tablet fluticasone propionate 50 2 spray intranasal DAILY 01/04/24 01/04/24 mcg/actuation nasal spray,suspension omeprazole magnesium 20 mg 20 mg PO DAILY 01/04/24 01/04/24 tablet,delayed release (Prilosec OTC) prednisone 20 mg tablet 40 mg PO DAILY 01/04/24 01/04/24 Results & Data (ED) Vital Signs Vital Signs - 24 hr 01/03/24 22:28 01/03/24 22:28 01/03/24 23:52 Temperature 37.2 C Temperature Source Oral Pulse Rate 101 H 107 H Pulse Rate [Apical] Pulse Rate from SpO2 Sensor Respiratory Rate 20 Respiratory Effort / Characteristics Non-Labored Spontaneous Respiratory Depth Normal Respiratory Pattern Blood Pressure 161/116 H Blood Pressure [Right Arm] Blood Pressure Mean 131 Blood Pressure Mean [Right Arm] Blood Pressure Position [Right Arm] Pulse Oximetry 92 Oxygen Delivery Method Room Air Room Air Oxygen Flow Rate Sepsis Recent Fever Within 48 Hours No Sepsis New/Unexplained Change in Mental Status N/A Sepsis Action Taken by Nursing No Action Required 01/03/24 23:53 01/03/24 23:53 01/03/24 23:54 Temperature Temperature Source Pulse Rate 101 H Pulse Rate [Apical] 92 H Pulse Rate from SpO2 Sensor 103 H Respiratory Rate 22 15 Respiratory Effort / Characteristics Short of Breath Respiratory Depth Normal Respiratory Pattern Regular Blood Pressure Blood Pressure [Right Arm] 155/105 H Blood Pressure Mean Blood Pressure Mean [Right Arm] 121 Blood Pressure Position [Right Arm] Sitting Pulse Oximetry 89 L 94 94 Oxygen Delivery Method Room Air Nasal Cannula Oxygen Flow Rate 2 Sepsis Recent Fever Within 48 Hours Sepsis New/Unexplained Change in Mental Status Sepsis Action Taken by Nursing 01/04/24 00:00 01/04/24 00:30 01/04/24 01:00 Temperature Temperature Source Pulse Rate 100 H 102 H 113 H Pulse Rate [Apical] Pulse Rate from SpO2 Sensor 98 H 106 H 109 H Respiratory Rate 17 17 15 Respiratory Effort / Characteristics Respiratory Depth Respiratory Pattern Blood Pressure Blood Pressure [Right Arm] Blood Pressure Mean Blood Pressure Mean [Right Arm] Blood Pressure Position [Right Arm] Pulse Oximetry 94 92 93 Oxygen Delivery Method Nasal Cannula Oxygen Flow Rate 2 Sepsis Recent Fever Within 48 Hours Sepsis New/Unexplained Change in Mental Status Sepsis Action Taken by Nursing 01/04/24 01:30 01/04/24 01:51 01/04/24 01:51 Temperature Temperature Source Pulse Rate 96 H 100 H Pulse Rate [Apical] Pulse Rate from SpO2 Sensor 98 H 96 H Respiratory Rate 14 19 Respiratory Effort / Characteristics Respiratory Depth Respiratory Pattern Blood Pressure 175/97 H Blood Pressure [Right Arm] Blood Pressure Mean 133 Blood Pressure Mean [Right Arm] Blood Pressure Position [Right Arm] Pulse Oximetry 99 93 Oxygen Delivery Method Nasal Cannula Room Air Oxygen Flow Rate 2 Sepsis Recent Fever Within 48 Hours Sepsis New/Unexplained Change in Mental Status Sepsis Action Taken by Nursing 01/04/24 02:00 01/04/24 02:30 Temperature Temperature Source Pulse Rate 94 H 92 H Pulse Rate [Apical] Pulse Rate from SpO2 Sensor 94 H 92 H Respiratory Rate 19 19 Respiratory Effort / Characteristics Respiratory Depth Respiratory Pattern Blood Pressure Blood Pressure [Right Arm] Blood Pressure Mean Blood Pressure Mean [Right Arm] Blood Pressure Position [Right Arm] Pulse Oximetry 93 92 Oxygen Delivery Method Room Air Room Air Oxygen Flow Rate Sepsis Recent Fever Within 48 Hours Sepsis New/Unexplained Change in Mental Status Sepsis Action Taken by Nursing Laboratory Data Attestation: I reviewed the patient's lab results. 01/03/24 22:40 01/03/24 22:40 Lab Results 01/03/24 Range/Units 22:40 WBC 13.55 H (4.8-10.8) K/ul RBC 5.14 (4.70-6.10) M/uL Hgb 16.0 (14.0-18.0) g/dl Hct 45.7 (42.0-52.0) % MCV 88.9 (80.0-100.0) fL MCH 31.1 (25.0-34.0) pg MCHC 35.0 (32.0-36.0) g/dL RDW Std Deviation 40.6 (36.4-46.3) fL RDW Coeff of Jen 12.5 (11.5-14.5) % Plt Count 349 (130-400) K/uL MPV 9.6 (9.4-12.4) fL Immature Gran % (Auto) 0.4 % Neut % (Auto) 49.7 % Lymph % (Auto) 32.7 % Giles % (Auto) 6.6 % Eos % (Auto) 10.1 % Baso % (Auto) 0.5 % Neut # (Auto) 6.74 H (1.40-6.50) K/uL Lymph # (Auto) 4.43 H (1.20-3.40) K/uL Giles # (Auto) 0.89 H (0.11-0.59) K/uL Eos # (Auto) 1.37 H (0.00-0.50) K/uL Baso # (Auto) 0.07 (0.00-0.20) K/uL Immature Gran # (Auto) 0.05 (0.01-0.20) K/uL PT 10.0 (9.0-12.0) Seconds INR 0.9 (0.9-1.1) APTT 28 (21-31) Seconds PTT Ratio 1.0 Sodium 137 (136-145) mmol/L Potassium 4.1 (3.5-5.1) mmol/L Chloride 102 (98-107) mmol/L Carbon Dioxide 26 (21-32) mmol/L Anion Gap 9 (3-11) BUN 25 H (6-23) mg/dl Creatinine 1.37 (0.6-1.4) mg/dl Est Cr Clr Drug Dosing 89.0 ml/min Est GFR ( Amer) 78.5 ml/min Est GFR (Non-Af Amer) 67.8 ml/min BUN/Creatinine Ratio 18.2 (10-20) Glucose 100 H (70-99(Fasting)) mg/dl Calcium 9.4 (8.6-10.3) mg/dl Total Bilirubin 0.3 (0.2-1.0) mg/dl AST 24 (13-39) U/L ALT 37 (7-52) U/L Alkaline Phosphatase 98 (34-104) U/L Troponin I High Sens 5.1 (0-20) pg/ml Total Protein 7.0 (6.0-8.3) gm/dl Albumin 4.5 (3.4-5.0) gm/dl Globulin 2.5 (2.5-4.0) gm/dl Albumin/Globulin Ratio 1.8 (0.9-2) Adenovirus (PCR) Not Detected (NotDetected) B. pertussis DNA (PCR) Not Detected (NotDetected) B.parapertussis DNA PCR Not Detected (NotDetected) C. pneumoniae DNA (PCR) Not Detected (NotDetected) Coronavirus OC43 (PCR) Not Detected (NotDetected) Coronavirus HKU1 (PCR) Not Detected (NotDetected) Coronavirus 229E (PCR) Not Detected (NotDetected) SARS-CoV-2 (PCR) DETECTED A (NotDetected) Coronavirus NL63 (PCR) Not Detected (NotDetected) Human Metapneumovir PCR Not Detected (NotDetected) Influenza Type A (PCR) Not Detected (NotDetected) Influenza Type B (PCR) Not Detected (NotDetected) M. pneumoniae (PCR) Not Detected (NotDetected) Parainfluenza 1 (PCR) Not Detected (NotDetected) Parainfluenza 2 (PCR) Not Detected (NotDetected) Parainfluenza 3 (PCR) Not Detected (NotDetected) Parainfluenza 4 (PCR) Not Detected (NotDetected) RSV (PCR) Not Detected (NotDetected) Entero/Rhino (PCR) Not Detected (NotDetected) Administered Medications Discontinued Medications Albuterol (Albut/Ipratrop 3mg/0.5mg Neb 3 Ml Vial) 3 ml NEB NOW STA; Protocol Stop: 01/04/24 01:13 Last Admin: 01/04/24 01:18 Dose: 3 ml Documented By: LINDA Dexamethasone Sodium Phosphate (DexamethasonePf 10 Mg/Ml Vial) 10 mg IV NOW ONE Stop: 01/04/24 01:13 Last Admin: 01/04/24 01:18 Dose: 10 mg Documented By: LINDA Guaifenesin (Guaifenesin 600 Mg Tabcr) 1,200 mg PO NOW STA Stop: 01/04/24 01:13 Last Admin: 01/04/24 01:18 Dose: 1,200 mg Documented By: LINDA Sodium Chloride (Nss) 1,000 mls @ 999 mls/hr IV .Q1H1M ONE Stop: 01/04/24 02:12 Last Infusion: 01/04/24 02:41 Dose: Infused Documented By: Admin: 01/04/24 01:18 Dose: 999 mls/hr Documented By: LINDA Ioversol (Optiray 350 500ml) 110 ml IV ONCE ONE Stop: 01/04/24 01:43 Last Admin: 01/04/24 01:46 Dose: 110 ml Documented By: JOHN Imaging Data Radiologist's Impression: Chest CTA 01/04/24 01:13 Exam(s): CTA CHEST IV Amt: 110 ml opti 350 EXAM: CT Angiography Chest With Intravenous Contrast CLINICAL HISTORY: Reason for exam: chest pain, sob, covid, r/o PE. TECHNIQUE: Axial computed tomographic angiography images of the chest with intravenous contrast. CTDI is 42.65 mGy and DLP is 904.64 mGy-cm. Automated exposure control was utilized for the study. A dose lowering technique was utilized adhering to the principles of ALARA. MIP reconstructed images were created and reviewed. COMPARISON: No relevant prior studies available. FINDINGS: Pulmonary arteries: Unremarkable. No pulmonary embolism. Aorta: No acute findings. No thoracic aortic aneurysm. Lungs: Unremarkable. No mass. No consolidation. Pleural space: Unremarkable. No significant effusion. No pneumothorax. Heart: Unremarkable. No cardiomegaly. No significant pericardial effusion. No evidence of RV dysfunction. Bones/joints: No acute fracture. No dislocation. Soft tissues: Unremarkable. Lymph nodes: Unremarkable. No enlarged lymph nodes. Liver: Hepatic steatosis. IMPRESSION: No acute findings in the visualized arteries of the chest. Electronically signed by: Adolfo Cardoza MD 01/04/24 02:31 AM Discharge Plan Visit Data Chief Complaint: Shortness of Breath/Dyspnea Stated Complaint: SOB ED Provider: Jaskaran Landrum Discharge Problem: COVID-19, Asthma, Hypoxia Forms Stand Alone Forms: My [facility] [place] [employer] Prescriptions Prescriptions: No Action albuterol sulfate [Ventolin HFA] 90 mcg/actuation Hfa Aerosol Inhaler 2 puff INHALATION Q6H PRN (Reason: Shortness Of Breath Or Wheezing) ipratropium-albuterol 0.5 mg-3 mg(2.5 mg base)/3 mL solution for nebulization 3 ml INHALATION DIRECTED PRN (Reason: Shortness Of Breath Or Wheezing) escitalopram oxalate 20 mg tablet 20 mg PO DAILY prednisone 20 mg tablet 40 mg PO DAILY Rx Instructions: STARTED 12/31/23 FOR 5 DAYS. fluticasone propionate [Flonase] 50 mcg/actuation Caroleen,Suspension 2 spray INTRANASAL DAILY Rx Instructions: administer into each nostril amoxicillin-pot clavulanate 875-125 mg tablet 1 tab PO BID Rx Instructions: STARTED 12/31/23 FOR 10 DAYS omeprazole magnesium [Prilosec OTC] 20 mg Tablet,Delayed Release (Dr/Ec) 20 mg PO DAILY Referrals Referrals: PCP,NO [Primary Care Provider] - Discharge Problem: Asthma Qualifiers: Asthma severity: unspecified severity Asthma persistence: intermittent Asthma complication type: with acute exacerbation Qualified Code(s): J45.21 - Mild intermittent asthma with (acute) exacerbation
[2024-01-04] MEDS: dexAMETHasone**PF** 10 MG/ML VIAL IV ONE (01:18)
[2024-01-04] MEDS: SODIUM CHLORIDE 0.9% 1,000 ML IV ONE ×2 (01:18→04:08)
[2024-01-04] MEDS: ALBUT/IPRATROP 3MG/0.5MG NEB 3 ML VIAL NEB STA (01:18)
[2024-01-04] MEDS: guaiFENesin 600 MG TABCR PO STA (01:18)
[2024-01-04] MEDS: OPTIRAY 350 500ml IV ONE (01:46)
--- NOTE | 2024-01-04 02:32 | CT Scan Report ---
Exam(s): CTA CHEST IV Amt: 110 ml opti 350 EXAM: CT Angiography Chest With Intravenous Contrast CLINICAL HISTORY: Reason for exam: chest pain, sob, covid, r/o PE. TECHNIQUE: Axial computed tomographic angiography images of the chest with intravenous contrast. CTDI is 42.65 mGy and DLP is 904.64 mGy-cm. Automated exposure control was utilized for the study. A dose lowering technique was utilized adhering to the principles of ALARA. MIP reconstructed images were created and reviewed. COMPARISON: No relevant prior studies available. FINDINGS: Pulmonary arteries: Unremarkable. No pulmonary embolism. Aorta: No acute findings. No thoracic aortic aneurysm. Lungs: Unremarkable. No mass. No consolidation. Pleural space: Unremarkable. No significant effusion. No pneumothorax. Heart: Unremarkable. No cardiomegaly. No significant pericardial effusion. No evidence of RV dysfunction. Bones/joints: No acute fracture. No dislocation. Soft tissues: Unremarkable. Lymph nodes: Unremarkable. No enlarged lymph nodes. Liver: Hepatic steatosis. IMPRESSION: No acute findings in the visualized arteries of the chest. Electronically signed by: Adolfo Cardoza MD 01/04/24 02:31 AM
--- NOTE | 2024-01-04 03:17 | History & Physical Report ---
Date of Service January 04, 2024 Assessment & Plan (1) Acute hypoxemic respiratory failure: Plan: Secondary to asthma exacerbation secondary to COVID-19 illness/complicated bronchitis Possible sepsis Failed outpatient treatment Situational hypertension secondary to illness hx GERD, stable on PPI mood disorder, at baseline, patient not suicidal past tobacco/substance abuse Medical telemetry Supplemental O2 Decadron, remdesivir for severe COVID-19 illness CS, Doxycycline Nebs RTC Pulmonary consult if without improvement Clonidine as needed for SBP greater than 160 DVT prophylaxis. Lovenox subcu Full code Text document was generated using [employer] voice recognition software. It may contain grammatical or spelling errors. Kindly contact undersigned for clarification of any documentation item in question. History of Present Illness Chief Complaint: Worsening cough, SOB Primary Care Provider: Dr. Diaz History obtained from patient and records. Medical history significant for bronchial asthma, GERD, history candidal meningitis/endophthalmitis as per records, mood disorder, past tobacco/substance abuse. Last confinement August 2022 for asthma exacerbation. Recent ER visit last week for depression without suicidality. 2 weeks history of cough congestion symptoms later productive of yellow sputum. No chest pain, denies aspiration. Possible sick contacts at home. Patient has received COVID-19 vaccination. Patient seen at PCP's office 4 days ago. Augmentin and prednisone course prescribed for complicated bronchitis. Worsening symptoms despite compliance with new prescriptions. Highest SBP 170s, lowest O2 sats of 80s documented at the ER. Decadron and neb treatment administered at the ER. 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 Allergies Allergy/AdvReac Type Severity Reaction Status Date / Time No Known Allergies Allergy Verified 01/04/24 00:15 Home Medications Medication Instructions Recorded Confirmed Type albuterol sulfate 90 mcg/actuation 2 puff inhalation Q6H PRN 12/07/18 01/04/24 History aerosol inhaler (Ventolin HFA) Shortness Of Breath Or Wheezing ipratropium 0.5 mg-albuterol 3 mg 3 ml inhalation DIRECTED PRN 09/27/21 01/04/24 History (2.5 mg base)/3 mL nebulization Shortness Of Breath Or Wheezing soln escitalopram oxalate 20 mg tablet 20 mg PO DAILY 08/23/22 01/04/24 History amoxicillin 875 mg-potassium 1 tab PO BID 01/04/24 01/04/24 History clavulanate 125 mg tablet fluticasone propionate 50 2 spray intranasal DAILY 01/04/24 01/04/24 History mcg/actuation nasal spray,suspension omeprazole magnesium 20 mg 20 mg PO DAILY 01/04/24 01/04/24 History tablet,delayed release (Prilosec OTC) prednisone 20 mg tablet 40 mg PO DAILY 01/04/24 01/04/24 History Past Med/Surg History Medical History (Updated 01/04/24 @ 08:31 by Elvis Martínez MD) Asthma with exacerbation Suicidal ideations Asthma exacerbation Asthma (03/13/13) H/O drug abuse "Denies heroin use since 2013 " Anxiety Hx of meningitis "Kirsten. Had seizures with this.-Resolved, no longer follows with neurology " Seasonal allergic conjunctivitis (03/13/13) Surgical History H/O esophagogastroduodenoscopy Family History Other No pertinent family history in first degree relatives Social History Smoking Status: Former smoker Cigarettes Per Day: 1/2 Pack a Day; Second Hand Exposure: No; Hx Alcohol Use: Yes Alcohol type: beer Hx Substance Use: No Preferred Language: Thai Communication Ability: Effective Aircraft Communicator Required: No Beliefs That Will Affect Care: None Current Living Situation: Spouse and Family Other Information That Helps Us Care for You: No Feels Safe at Home: Yes Safety Concerns: Feels Safe At This Time Assistive Devices: None Review of Systems Review of Systems: As per HPI, all other systems reviewed and negative Physical Exam Physical Exam: GENERAL: Comfortable, pleasant, obese, no respiratory distress SKIN: Normal color, warm HEENT: [place] palpebral conjunctivae, no ptosis, moist buccal mucosa NECK : Supple, no tenderness CHEST : Decreased breath sounds, expiratory wheezes, no tenderness HEART : RRR, no obvious murmurs ABDOMEN: Some distention, nontender EXTREMITIES : No LE swelling/tenderness, no other conspicuous deformities noted NEUROLOGIC : Coherent, no facial asymmetry, no other gross focality Results & Data Results & Data Vital Signs (Past 12 Hours) Vital Signs Temp Pulse Pulse Resp BP BP Pulse Ox 01/04/24 02:30 92 H 19 92 01/04/24 02:00 94 H 19 93 01/04/24 02:00 92 01/04/24 01:51 100 H 19 93 01/04/24 01:51 175/97 H 01/04/24 01:30 96 H 14 99 01/04/24 01:00 113 H 15 93 01/04/24 00:30 102 H 17 92 01/04/24 00:00 100 H 17 94 01/03/24 23:54 94 01/03/24 23:53 101 H 15 94 01/03/24 23:53 92 H 22 155/105 H 89 L 01/03/24 23:52 107 H 01/03/24 22:28 01/03/24 22:28 37.2 C 101 H 20 161/116 H 92 O2 Del Method O2 Flow Rate 01/04/24 02:30 Room Air 01/04/24 02:00 Room Air 01/04/24 02:00 Room Air 01/04/24 01:51 Room Air 01/04/24 01:51 01/04/24 01:30 Nasal Cannula 2 01/04/24 01:00 Nasal Cannula 2 01/04/24 00:30 01/04/24 00:00 01/03/24 23:54 Nasal Cannula 2 01/03/24 23:53 01/03/24 23:53 Room Air 01/03/24 23:52 01/03/24 22:28 Room Air 01/03/24 22:28 Room Air Laboratory Results Laboratory Results WBC 13.55 K/ul (4.8-10.8) H 01/03/24 22:40 RBC 5.14 M/uL (4.70-6.10) 01/03/24 22:40 Hgb 16.0 g/dl (14.0-18.0) 01/03/24 22:40 Hct 45.7 % (42.0-52.0) 01/03/24 22:40 MCV 88.9 fL (80.0-100.0) 01/03/24 22:40 MCH 31.1 pg (25.0-34.0) 01/03/24 22:40 MCHC 35.0 g/dL (32.0-36.0) 01/03/24 22:40 RDW Std Deviation 40.6 fL (36.4-46.3) 01/03/24 22:40 RDW Coeff of Jen 12.5 % (11.5-14.5) 01/03/24 22:40 Plt Count 349 K/uL (130-400) 01/03/24 22:40 MPV 9.6 fL (9.4-12.4) 01/03/24 22:40 Immature Gran % (Auto) 0.4 % 01/03/24 22:40 Neut % (Auto) 49.7 % 01/03/24 22:40 Lymph % (Auto) 32.7 % 01/03/24 22:40 Catron % (Auto) 6.6 % 01/03/24 22:40 Eos % (Auto) 10.1 % 01/03/24 22:40 Baso % (Auto) 0.5 % 01/03/24 22:40 Neut # (Auto) 6.74 K/uL (1.40-6.50) H 01/03/24 22:40 Lymph # (Auto) 4.43 K/uL (1.20-3.40) H 01/03/24 22:40 Catron # (Auto) 0.89 K/uL (0.11-0.59) H 01/03/24 22:40 Eos # (Auto) 1.37 K/uL (0.00-0.50) H 01/03/24 22:40 Baso # (Auto) 0.07 K/uL (0.00-0.20) 01/03/24 22:40 Immature Gran # (Auto) 0.05 K/uL (0.01-0.20) 01/03/24 22:40 PT 10.0 Seconds (9.0-12.0) 01/03/24 22:40 INR 0.9 (0.9-1.1) 01/03/24 22:40 APTT 28 Seconds (21-31) 01/03/24 22:40 PTT Ratio 1.0 01/03/24 22:40 Sodium 137 mmol/L (136-145) 01/03/24 22:40 Potassium 4.1 mmol/L (3.5-5.1) 01/03/24 22:40 Chloride 102 mmol/L (98-107) 01/03/24 22:40 Carbon Dioxide 26 mmol/L (21-32) 01/03/24 22:40 Anion Gap 9 (3-11) 01/03/24 22:40 BUN 25 mg/dl (6-23) H 01/03/24 22:40 Creatinine 1.37 mg/dl (0.6-1.4) 01/03/24 22:40 Est Cr Clr Drug Dosing 89.0 ml/min 01/03/24 22:40 Est GFR ( Amer) 78.5 ml/min 01/03/24 22:40 Est GFR (Non-Af Amer) 67.8 ml/min 01/03/24 22:40 BUN/Creatinine Ratio 18.2 (10-20) 01/03/24 22:40 Glucose 100 mg/dl (70-99(Fasting)) H 01/03/24 22:40 Calcium 9.4 mg/dl (8.6-10.3) 01/03/24 22:40 Total Bilirubin 0.3 mg/dl (0.2-1.0) 01/03/24 22:40 AST 24 U/L (13-39) 01/03/24 22:40 ALT 37 U/L (7-52) 01/03/24 22:40 Alkaline Phosphatase 98 U/L (34-104) 01/03/24 22:40 Troponin I High Sens 5.1 pg/ml (0-20) 01/03/24 22:40 Total Protein 7.0 gm/dl (6.0-8.3) 01/03/24 22:40 Albumin 4.5 gm/dl (3.4-5.0) 01/03/24 22:40 Globulin 2.5 gm/dl (2.5-4.0) 01/03/24 22:40 Albumin/Globulin Ratio 1.8 (0.9-2) 01/03/24 22:40 Adenovirus (PCR) Not Detected (NotDetected) 01/03/24 22:40 B. pertussis DNA (PCR) Not Detected (NotDetected) 01/03/24 22:40 B.parapertussis DNA PCR Not Detected (NotDetected) 01/03/24 22:40 C. pneumoniae DNA (PCR) Not Detected (NotDetected) 01/03/24 22:40 Coronavirus OC43 (PCR) Not Detected (NotDetected) 01/03/24 22:40 Coronavirus HKU1 (PCR) Not Detected (NotDetected) 01/03/24 22:40 Coronavirus 229E (PCR) Not Detected (NotDetected) 01/03/24 22:40 SARS-CoV-2 (PCR) DETECTED (NotDetected) A 01/03/24 22:40 Coronavirus NL63 (PCR) Not Detected (NotDetected) 01/03/24 22:40 Human Metapneumovir PCR Not Detected (NotDetected) 01/03/24 22:40 Influenza Type A (PCR) Not Detected (NotDetected) 01/03/24 22:40 Influenza Type B (PCR) Not Detected (NotDetected) 01/03/24 22:40 M. pneumoniae (PCR) Not Detected (NotDetected) 01/03/24 22:40 Parainfluenza 1 (PCR) Not Detected (NotDetected) 01/03/24 22:40 Parainfluenza 2 (PCR) Not Detected (NotDetected) 01/03/24 22:40 Parainfluenza 3 (PCR) Not Detected (NotDetected) 01/03/24 22:40 Parainfluenza 4 (PCR) Not Detected (NotDetected) 01/03/24 22:40 RSV (PCR) Not Detected (NotDetected) 01/03/24 22:40 Entero/Rhino (PCR) Not Detected (NotDetected) 01/03/24 22:40 Impressions Chest CTA 01/04/24 01:13 Exam(s): CTA CHEST IV Amt: 110 ml opti 350 EXAM: CT Angiography Chest With Intravenous Contrast CLINICAL HISTORY: Reason for exam: chest pain, sob, covid, r/o PE. TECHNIQUE: Axial computed tomographic angiography images of the chest with intravenous contrast. CTDI is 42.65 mGy and DLP is 904.64 mGy-cm. Automated exposure control was utilized for the study. A dose lowering technique was utilized adhering to the principles of ALARA. MIP reconstructed images were created and reviewed. COMPARISON: No relevant prior studies available. FINDINGS: Pulmonary arteries: Unremarkable. No pulmonary embolism. Aorta: No acute findings. No thoracic aortic aneurysm. Lungs: Unremarkable. No mass. No consolidation. Pleural space: Unremarkable. No significant effusion. No pneumothorax. Heart: Unremarkable. No cardiomegaly. No significant pericardial effusion. No evidence of RV dysfunction. Bones/joints: No acute fracture. No dislocation. Soft tissues: Unremarkable. Lymph nodes: Unremarkable. No enlarged lymph nodes. Liver: Hepatic steatosis. IMPRESSION: No acute findings in the visualized arteries of the chest. Electronically signed by: Adolfo Cardoza MD 01/04/24 02:31 AM Diagnostic Findings EKG as per my interpretation : Rate 105, sinus tachycardia, normal axis, T wave flattening inferior leads
[2024-01-04] MEDS ORDERED: PROMETHAZINE HCL 12.5 MG in SODIUM CHLORIDE 0.9% 50 ML IV PRN (03:29)
[2024-01-04] MEDS ORDERED: hydrOXYzine HCl 10 MG TAB PO PRN (03:29)
[2024-01-04] MEDS: cloNIDine HCL 0.1 MG TAB PO ONE (04:09)
[2024-01-04] MEDS: DOXYCYCLINE HYCLATE 100 MG in DEXTROSE 5% MINI-B 100 ML IV STA (04:09)
[2024-01-04 04:20] LABS: Magnesium 2.1 mg/dl (1.7-2.4)
[2024-01-04 04:54] LABS: Base Excess VBG 0.1 mEq/L; HCO3 VBG 26 mmol/L; Oxygen Saturation VBG 65.4 %; PCO2 VBG 46 mmHg (38-50); PO2 VBG 38 mmHg; pH VBG 7.36 (7.36-7.41)
[2024-01-04 04:56] LABS: Basophils # (auto) 0.06 K/uL (0.00-0.20); Basophils % (auto) 0.5 %; Eosinophils # (auto) 0.76 K/uL (0.00-0.50); Eosinophils % (auto) 6.3 %; Hematocrit (blood only) 46.3 % (42.0-52.0); Hemoglobin 15.6 g/dl (14.0-18.0); Immature Granulocytes # (auto) 0.07 K/uL (0.01-0.20); Immature Granulocytes % (auto) 0.6 %; Lymphocytes # (auto) 1.82 K/uL (1.20-3.40); Lymphocytes % (auto) 15.1 %; Mean Corpuscular Hemoglobin 29.8 pg (25.0-34.0); Mean Corpuscular Hgb Conc 33.7 g/dL (32.0-36.0); Mean Corpuscular Volume 88.5 fL (80.0-100.0); Mean Platelet Volume 9.7 fL (9.4-12.4); Monocytes # (auto) 0.26 K/uL (0.11-0.59); Monocytes % (auto) 2.2 %; Neutrophils # (auto) 9.05 K/uL (1.40-6.50); Neutrophils % (auto) 75.3 %; Platelet Count 326 K/uL (130-400); RDW Coefficient of Variation 12.4 % (11.5-14.5); RDW Standard Deviation 40.3 fL (36.4-46.3); Red Blood Count 5.23 M/uL (4.70-6.10); White Blood Count 12.02 K/ul (4.8-10.8)
[2024-01-04 05:09] LABS: BUN Creatinine Ratio 20.7 (10-20); Calcium 9.3 mg/dl (8.6-10.3); Creatinine Clr Calc Pharmacy 105.1 ml/min; Est GFR (Non-African American) 82.9 ml/min; Potassium 4.8 mmol/L (3.5-5.1)
[2024-01-04] MEDS: REMDESIVIR 200 MG in SODIUM CHLORIDE 0.9% 210 ML IV STA (05:16)
[2024-01-04] MEDS: ACETAMINOPHEN 325 MG TAB PO PRN (05:24)
[2024-01-04] MEDS: BENZONATATE 100 MG CAPSULE PO ONE (05:46)
[2024-01-04] MEDS: IPRATROPIUM BROMIDE NEB SOLN 0.02% 0.5MG/2.5ML VIAL INH SCH (06:09)
[2024-01-04] MEDS: LEVALBUTEROL 1.25 MG/3 ML NEB NEB SCH (06:09)
--- NOTE | 2024-01-04 06:36 | XRay Report ---
XR chest 1V not portable CLINICAL HISTORY: Chest pain, nonspecific COMPARISON STUDY: Chest radiograph September 03, 2022. FINDINGS: Lung volumes are normal. Lungs are clear. There is no pneumothorax or pleural effusion. Car diomediastinal silhouette is stable. There is no evidence for pulmonary edema. IMPRESSION: No acute cardiopulmonary findings. No change in appearance of the chest. ACT 112: Negative or not required by law. Electronically signed by: Gm Bhatti M.D. 01/04/2024 6:34 AM
[2024-01-04] MEDS ORDERED: LEVALBUTEROL 1.25 MG/3 ML NEB NEB SCH (07:00)
[2024-01-04] MEDS ORDERED: IPRATROPIUM BROMIDE NEB SOLN 0.02% 0.5MG/2.5ML VIAL INH SCH (07:00)
[2024-01-04] MEDS: FLUTICASONE PROPIONATE NA SPR 16 GM BTL NAE SCH (08:16)
[2024-01-04] MEDS: PANTOprazole 40 MG TAB PO SCH (08:17)
[2024-01-04] MEDS: ESCITALOPRAM OXALATE 20 MG TAB PO SCH (08:17)
--- OUTSIDE RECORDS SUMMARY | 2024-01-04 08:29 | External Medical Summary | Summary of Care ---
Author Name Unknown Organization [facility] Address [address] [place] [address] Phone [phone] Care Team Providers Care Pharmacy Delivery Driver Name Role Phone Courtney Diaz MD Primary Care Provide r Reason for Visit * Reason Comments Acute Encounter Details Date Type Department Care Team (Late st Contact Info) Description 12/31/2023 11:20 AM EDT Office Visit Family Medicine [address] [phone] Alyssa Kearney PA-C [address] [place] [address] [place] [phone] Bronchitis, complicated*; Moderate persistent asthma without complication Allergies No known active allergiesdocumented as of this encounter (statuses as of 12/31/2023) Medications Medication Sig Dispensed Refills Start Date End Date Status loratadine (CLARITIN) 10 MG TabletIndications:A llergic rhinitis, unspecified seasonality, unspecified trigger Take 1 Tab by mouth daily. 30 Tab 5 04/26/2018 Active Omeprazole 20 MG Oral Capsule Delayed Release (PriLOSEC)Indicatio ns:Gastroesophageal reflux disease without esophagitis Take 1 Cap by mouth daily. 1 hour before the first meal of the day 30 Cap 5 10/22/2020 Active Fluticasone Propionate 50 MCG/ACT Nasal Suspension (Flonase)Indication s:Bronchitis, complicated Administer 2 Sprays into each nostril daily. 16 g 1 09/15/2021 Active Fluticasone Propionate HFA 110 MCG/ACT Inhalation Aerosol (Flovent HFA)Indications:Mod erate persistent asthma without complication Inhale by mouth 2 Puffs in the morning AND 2 Puffs before bedtime. 12 g 1 02/16/2022 Active Escitalopram Oxalate 20 MG Oral Tablet (Lexapro)Indication s:Current moderate episode of major depressive disorder without prior episode (HCC) Take 1 Tablet by mouth in the morning. 90 Tablet 3 04/09/2023 Active Albuterol Sulfate HFA 108 (90 Base) MCG/ACT Inhalation Aerosol SolutionIndications :Moderate persistent asthma with exacerbation INHALE 2 PUFFS BY MOUTH EVERY 4 HOURS NEEDED FOR WHEEZE 18 g 5 04/09/2023 Active Ipratropium-Albuter ol 0.5-2.5 (3) MG/3ML Inhalation Solution (Duoneb) Inhale 3 mL via nebulizer every 6 hours as needed for Shortness of Breath. 90 mL 3 10/26/2023 Active Amoxicillin-Pot Clavulanate 875-125 MG Oral Tablet (Augmentin)Indicati ons:Bronchitis, complicated Take 1 Tablet by mouth in the morning and 1 Tablet before bedtime. Do all this for 10 days. 20 Tablet 0 12/31/2023 01/10/2024 Active predniSONE 20 MG Oral Tablet (Deltasone)Indicati ons:Bronchitis, complicated Take 2 Tablets by mouth in the morning for 5 days. 10 Tablet 0 12/31/2023 01/05/2024 Active Hospital, Clinic, or Other Facility Administered Medication Ordered Dose Route Frequency Start Date End Date Status albuterol sulfate (PROVENTIL) (2.5 MG/3ML) 0.083% inhalation solution 2.5 mgIndications:Seasonal and perennial allergic rhinitis 2.5 mg NEBULIZER Q4H PRN 10/29/2018 Active documented as of this encounter (statuses as of 12/31/2023) Active Problems Problem Noted Date Diagnosed Date Gastroesophageal reflux disease without esophagi tis 10/26/2018 History of drug use disorder 12/08/2016 Moderate persistent asthma without complication 07/08/2016 Candidal meningitis 10/12/2014 Kirsten endophthalmitis 10/12/2014 Ventriculitis 10/07/2014 Posterior uveitis, left 10/07/2014 Visual loss, left eye 09/25/2014 Daily headache 09/25/2014 Gynecomastia, male 07/03/2014 Chest pain 07/03/2014 Anxiety 07/03/2014 Seasonal and perennial allergic rhinitis 013 Other penile anomalies 07/02/2008 documented as of this encounter (statuses as of 12/31/2023) Resolved Problems Problem Noted Date Diagnosed Date Resolved Date Current moderate episode of major depressive disorder without prior episode 05/18/2022 3 Tobacco use disorder 07/08/2016 022 Asthma exacerbation 08/22/2015 10/26/19 19 History of tobacco use 04/05/201507/08 Overview: quit 03/05/15 Preop examination 04/05/2015 12/31/2021 Chest wall symptom 07/19/2014 7 Chest wall pain 07/19/2014 09/13/2017 Tobacco use disorder 05/18/2014 015 Asthma exacerbation 04/03/2013 04/05/20 15 Complicated bronchitis 04/03/201305/06 Costochondritis, acute 04/03/201309/13 Tobacco use disorder 04/03/2013 015 Periumbilical abdominal pain 11/25/2005 04/03/2013 Overview: ICD-10 update of inactive term Esophageal reflux 11/25/2005 01/01/2015 Asthma with severity to be determined 11/25/2005 04/03/2013 Overview: ICD-10 update of inactive term Convulsions 11/25/2005 10/22/2020 Headache 11/25/2005 04/05/2015 Overview: ICD-10 update of inactive term RHINITIS DUE TO POLLEN 11/25/200504/03 Asthma, moderate persistent 05/06/2015 Intermittent asthma with rel iever use up to twice per week 07/08/2016 documented as of this encounter (statuses as of 12/31/2023) Immunizations Name Administration Dates Next Due COVID-19 mRNA, LNP-s, No Pre serve, 2-Dose Series (Moderna) 03/26/2021,02/25/2021 COVID-19, mRNA, LNP-s, PF, B ooster, 100mcg/0.5mg (Moderna) 10/28/2021 HIB PRP-OMP, 3 dose (Pedvax) 1991,10/10/19 91,1991 HPV Vaccine, 9-Valent 12/08/2016 Hep A - Hepatitis A (ped/ado le, 1-18 Yrs) 03/08/2009 OPV - Polio Virus Vaccine (Oral) 1991,06/12 Pneumococcal Polysaccharide PPV23 (Pneumovax) 12/08/2016 Seasonal Influenza, PF, 6 M & above, IM , (FluLaval or Fluzone) 07/10/2022,07/24/2020,10/20/2019,10/26 Seasonal Influenza, Quadriva lent, No Preserve, IM 12/08/2016 TDAP (age 10 and older)(Boostrix) 10/22/2020 TDAP (age 11 and older)(Adacel) 06/03/2009 documented as of this encounter Social History Tobacco Use Types Packs/Day Years Used Date Smoking Tobacco: Former Cigarettes 0.3 9 0 10/26/2010 - 10/26/2019 Smokeless Tobacco: Never Tobacco Cessation:Counseling Given: Not Answered Comments:began at age 13 -- cutting down Alcohol Use Standard Drinks/Week Comments Yes 0 (1 standard drink = 0.6 oz pur e alcohol) occasionally PHQ-2 Answer Date Recorded PHQ-2 Score 0 01/25/2020 Hunger Vital Sign Answer Date Recorded Worried About Running Out of Food in the Last Ye ar Never true 01/25/2020 Ran Out of Food in the Last Year Never true 01/25/2020 Sex and Gender Information Value Date Recorded Sex Assigned at Not on file Gender Identity Not on file Sexual Orientation Not on file Job Start Date Occupation Industry Not on file Not on file Not on file documented as of this encounter Last Filed Vital Signs Vital Sign Reading Time Taken Comments Blood Pressure 140/90 12/31/2023 11:11 AM EDT Pulse 127 12/31/2023 11:11 AM EDT Temperature 36.1 C (97 F) 12/31/2023 11:11 AM EDT Respiratory Rate - - Oxygen Saturation 96% 12/31/2023 11:11 AM EDT Inhaled Oxygen Concentration - - Weight 104.8 kg (231 lb) 12/31/2023 11:11 AM EDT Height - - Body Mass Index 37.28 09/21/2023 1:49 PM EST documented in this encounter Functional Status Functional Status Response Date of Assess ment Are you deaf or do you have serious difficulty h earing? No 07/02/2015 Are you blind or do you have serious difficulty seeing, even when wearing glasses? Yes 07/02/2015 Do you have serious difficul ty walking or climbing stairs? (5 years old or older) No 07/02/2015 Do you have difficulty dress ing or bathing? (5 years old or older) No 07/02/2015 Because of a physical, menta l, or emotional condition, do you have difficulty doing errands alone such as visiting a doctor s office or shopping? (15 years old or older) No 07/02/20 15 Cognitive Status Response Date of Assessm ent Because of a physical, menta l, or emotional condition, do you have serious difficulty concentrating, remembering, or making decisions? (5 years old or older) No 07/02/2015 documented as of this encounter Progress Notes * Alyssa Kearney PA-C - 12/31/2023 11:15 AM EDT Nursing Notes: Donnie Sotleo LPN 12/31/23 1114 Signed Chief Complaint Patient presents with Acute Chest congestion, Productive cough clear, using inhalers. Not using HHN machine due to broke. Denies Fevers Duration- 2 wk's Notice increase depression Taking Lexapro daily Duration- 1 wk Does not want to harm anyone else or self Was at [facility] ER 12/29/23 for mental health They want him to go see Therapist , but unable to afford BP today 140/90 They did tell him that BP was High at ER The patient has been properly identified by confirmation of name and date of . Pt here today with cough, chest congestion, sputum production for the past 2 weeks. Pt denies nausea, vomiting, diarrhea. He has some SOB, he devine shave asthma. Pt denies chest pain, sinus pain/pressure, nasal/head congestion, sore throat, ear pain. It is all in his chest. Pt was in ER a couple of days ago for mental health. He was started on lexapro and they are gettinghim set up with a counselor. Pt denies SI/HI. BP was a little high in the ER. 140/90 today. It has always been ok. Review of patient's allergies indicates: No Known Allergies Current Outpatient Medications Medication Sig Dispense Refill loratadine (CLARITIN) 10 MG Tablet Take 1 Tab by mouth daily. 30 Tab 5 Omeprazole 20 MG Oral Capsule Delayed Release (PriLOSEC) Take 1 Cap by mouth daily. 1 hour before the first meal of the day 30 Cap 5 Fluticasone Propionate 50 MCG/ACT Nasal Suspension (Flonase) Administer 2 Sprays into each nostril daily. 16 g 1 Fluticasone Propionate HFA 110 MCG/ACT Inhalation Aerosol (Flovent HFA) Inhale by mouth 2 Puffs in the morning AND 2 Puffs before bedtime. 12 g 1 Escitalopram Oxalate 20 MG Oral Tablet (Lexapro) Take 1 Tablet by mouth in the morning. 90 Tablet 3 Albuterol Sulfate HFA 108 (90 Base) MCG/ACT Inhalation Aerosol Solution INHALE 2 PUFFS BY MOUTH EVERY 4 HOURS NEEDED FOR WHEEZE 18 g 5 Ipratropium-Albuterol 0.5-2.5 (3) MG/3ML Inhalation Solution (Duoneb) Inhale 3 mL via nebulizer every 6 hours as needed for Shortness of Breath. 90 mL 3 Current Facility-Administered Medications Medication Dose Route Frequency Provider Last Rate Last Admin albuterol sulfate (PROVENTIL) (2.5 MG/3ML) 0.083% inhalation solution 2.5 mg 2.5 mg Nebulizer Q4H PRN Elidia Scales MD Past Medical History: Diagnosis Date Allergic rhinitis 04/03/2013 Anxiety 07/03/2014 Asthma exacerbation 04/03/2013 Chest pain 07/03/2014 Chest wall pain 07/19/2014 Chest wall symptom 07/19/2014 Complicated bronchitis 04/03/2013 Convulsions (HCC) last seizure 08/2014 Costochondritis, acute 04/03/2013 Daily headache 09/25/2014 Esophageal reflux Gynecomastia, male 07/03/2014 Headache(784.0) Hypertension occassionally Intermittent asthma with reliever use up to twice per week 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 07/02/2008 Rhinitis due to pollen 4 or 5 spring Tobacco use disorder 04/03/2013 Visual loss, left eye 09/25/2014 Social History Socioeconomic History Marital status: Single Spouse name: na Number of children: 0 Years of education: 8 Highest education level: Not on file Occupational History Occupation: student Tobacco Use Smoking status: Former Current packs/day: 0.00 Average packs/day: 0.3 packs/day for 9.0 years (2.3 ttl pk-yrs) Types: Cigarettes Start date: 10/26/2010 Quit date: 10/26/2019 Years since quittin.1 Smokeless tobacco: Never Tobacco comments: began at age 13 -- cutting down Vaping Use Vaping Use: Never used Substance and Sexual Activity Alcohol use: Yes Comment: occasionally Drug use: No Comment: no injectable drug since spring 2013- had used heroin;little caffeine Sexual activity: Yes Partners: Female control/protection: Condom Comment: no problems Other Topics Concern Not on file Social History Narrative Not working now 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 employer: [employer] education: 11 service: no hobbies/interests: Camping, fishing transfusions: No Tattoos- right forearm cross, left deltoid- campo exercise: walks diet: no sikhism/amish: no marital status: single children: 2 gc: 0 ggc: 0 pets: no exposure to violence/threats/abuse: no things to improve: no Social Determinants of Health Financial Resource Strain: Not on file Food Insecurity: No Food Insecurity (01/25/2020) Hunger Vital Sign Worried About Running Out of Food in the Last Year: Never true Ran Out of Food in the Last Year: Never true Transportation Needs: Not on file Physical Activity: Not on file Stress: Not on file Social Connections: Not on file Intimate Partner Violence: Not on file Housing Stability: Not on file O:Blood pressure 140/90, pulse 127, temperature 36.1 C (97 F), temperature source Tympanic, weight 104.8 kg (231 lb), SpO2 96%. GENERAL: alert and no distress NECK: supple, no adenopathy EYES: conjunctiva are pink and non-injected, sclera clear EARS: External ears normal, Canals clear, TM's Normal NOSE: no mucosal erythema, no mucosal edema, no purulent discharge OROPHARYNX: no exudate, no erythema, lips, buccal mucosa, and tongue normal, and mucous membranes are moist HEART: regular rate & rhythm, no murmur, and no gallops LUNGS: chest symmetric with normal AP diameter, no chest deformities noted, no chest wall tenderness, lungs clear to auscultation, mild expiratory wheezes bilaterally A:Bronchitis, complicated (Primary) - Amoxicillin-Pot Clavulanate 875-125 MG Oral Tablet (Augmentin); Take 1 Tablet by mouth in the morning and 1 Tablet before bedtime. Do all this for 10 days. - predniSONE 20 MG Oral Tablet (Deltasone); Take 2 Tablets by mouth in the morning for 5 days. - RETURN TO WORK OR SCHOOL Moderate persistent asthma without complication - DURABLE MEDICAL EQUIPMENT Start above meds. Any questions/problems, please call. If anything changes, worsens, develops new sx, please call [facility]. Follow Up: Return if symptoms worsen or fail to improve. Alyssa Kearney PA-C documented in this encounter Nursing Notes * Donnie Sotelo LPN - 12/31/2023 11:07 AM EDT Chief Complaint Patient presents with Acute Chest congestion, Productive cough clear, using inhalers. Not using HHN machine due to broke. Denies Fevers Duration- 2 wk's Notice increase depression Taking Lexapro daily Duration- 1 wk Does not want to harm anyone else or self Was at [facility] ER 12/29/23 for mental health They want him to go see Therapist , but unable to afford BP today 140/90 They did tell him that BP was High at ER The patient has been properly identified by confirmation of name and date of . documented in this encounter Plan of Treatment Health Maintenance Due Date Last Done Comments Hepatitis B (1 of 3 - 19+ 3-dose series) 2010 *SPIROMETRY ONCE FOR ASTHMA-ADULT 11/29/2016 GARDASIL-HPV IMMUNIZATION SERIES (2 - Male 3-dose series) 01/05/2017 12/08/2016 Pneumococcal Vaccine: Pediatrics (0 to 5 Years) and At-Risk Patients (6 to 64 Years) (2 of 2 - PCV) 12/08/2017 12/08/2016 Depression Screening 01/24/2021 01/25/2020 COVID-19 Vaccine ( season) 2023 10/28/2021, 03/26/2021, 02/25/2021 Influenza Vaccine (FLU shot) (#1) 2023 07/10/2022, 07/24/2020, 10/20/2019, Additional history exists DTaP,Tdap,and Td Vaccines (3 - Td or Tdap) 10/22/2030 10/22/2020, 06/03/2009 Hepatitis C Screening Completed 10/08/2014 MENINGOCOCCAL (MENACTRA/MENVEO) Aged Out No longer eligible based on patient's age to complete this topic documented as of this encounter Medical Devices Not on filedocumented as of this encounter Visit Diagnoses Diagnosis Bronchitis, complicated- Primary Bronchitis, not specified as acute or chronic Moderate persistent asthma without complication Unspecified asthma documented in this encounter Advance Directives Latest Code Status on File Code Status Date Activated Date Inactivated Comments Full Code 05/09/2015 10:00 AM 05/09/2015 2:36 PM This order reflects the patients wishes and were consensually agreed upon. Code Status History Code Status Date Activated Date Inactivated Comments Full Code 10/07/2014 5:45 AM 10/12/2014 9:19 PM This order reflects the patients wishes and were consensually agreed upon. Question Answer Comments Discussion of Advance Directives occurred with: Patient Does the patient have a Living Will? No Does the patient have Health Care Power of Inspector Timers? No Care Teams Pharmacy Delivery Driver Relationship Specialty Start Date End Date Courtney Diaz MD [address] [place] [address] CARLOS Chou [id number] PCP - General Family Medicine 10/16/21 documented as of this encounter
[2024-01-04] MEDS: ENOXAPARIN INJ 40 MG/0.4 ML SYR SQ SCH (08:43)
--- NOTE | 2024-01-04 13:06 | Electrocardiogram Report ---
Test Reason : Blood Pressure : / mmHG Vent. Rate : 103 BPM Atrial Rate : 103 BPM P-R Int : 144 ms QRS Dur : 096 ms QT Int : 340 ms P-R-T Axes : 068 058 020 degrees QTc Int : 445 ms Sinus tachycardia Otherwise normal ECG When compared with ECG of 04-SEP-2022 06:55, No significant change was found Confirmed by Fabio Garcia ([id number]) on 01/04/2024 1:06:09 PM Referred By: REFERRED SELF Confirmed By:Fabio Garcia
--- NOTE | 2024-01-04 15:52 | Hospitalist Progress Note ---
Date of Service January 04, 2024 Assessment & Plan (1) Acute hypoxemic respiratory failure: Plan: COVID 19 Infection --CTA:No acute findings in the visualized arteries of the chest. -- BioFire positive for COVID-19 --Blood cultures pending Check procalcitonin, CRP Supplemental oxygen as needed Started on remdesivir, dexamethasone Also empirically on doxycycline Continue nebs Asthma exacerbation Not on any maintenance home inhalers Admits to using rescue inhaler albuterol almost on daily basis Continue steroids, nebs as above Situational hypertension secondary to illness Monitor BP GERD continue PPI Mood disorder at baseline Past tobacco/substance abuse--drug screen pending DVT Px: Lovenox SQ Code Status Full code Admission and Anticipated Discharge Date Admission Date: January 04, 2024 Subjective Patient is seen and examined at bedside Dyspnea, wheezing improving Still has some cough and some chest discomfort with cough Denies any dizziness, nausea, vomiting, abdominal pain No other complaints Saturating well on room Review of Systems Review of Systems: All systems reviewed & are unremarkable except as noted in Subjective Physical Exam Physical Exam: Physical Exam: Vitals signs as noted above General Appearance:Obese, no apparent distress Head: normocephalic, Atraumatic Eyes: normal inspection, EOMI Neck: supple, Trachea midline Respiratory/Chest: Decreased breath sounds,+B/L wheezing, No accessory muscle use Cardiovascular: S1, S2, No murmur Abdomen/GI:Soft, Non tender, Bowel sounds present Extremities/Musculoskeletal:normal inspection, no edema Neurologic/Psych:AAOX3, grossly no focal neurological deficits Skin: normal color, warm Results & Data Results & Data Vital Signs (Past 12 Hours) Vital Signs Temp Pulse Pulse Resp BP Pulse Ox Pulse Ox 01/04/24 13:47 80 16 95 01/04/24 08:11 90 01/04/24 08:00 105 H 20 126/89 94 01/04/24 05:00 36.7 C 87 15 128/92 93 01/04/24 05:00 93 01/04/24 04:54 01/04/24 04:54 36.7 C 87 15 128/92 94 01/04/24 04:54 01/04/24 04:30 89 15 93 01/04/24 04:10 78 01/04/24 04:00 98 H 14 94 O2 Del Method O2 Del Method 01/04/24 13:47 Room Air 01/04/24 08:11 01/04/24 08:00 Room Air 01/04/24 05:00 Room Air 01/04/24 05:00 Room Air 01/04/24 04:54 Room Air 01/04/24 04:54 Room Air 01/04/24 04:54 Room Air 01/04/24 04:30 01/04/24 04:10 01/04/24 04:00 Laboratory Results Short CBC 01/03/24 01/04/24 Range/Units 22:40 04:21 WBC 13.55 H 12.02 H (4.8-10.8) K/ul Hgb 16.0 15.6 (14.0-18.0) g/dl Hct 45.7 46.3 (42.0-52.0) % Plt Count 349 326 (130-400) K/uL BMP 01/03/24 01/04/24 22:40 04:21 Sodium 137 136 Potassium 4.1 4.8 Chloride 102 104 Carbon Dioxide 26 25 BUN 25 H 24 H Creatinine 1.37 1.16 Glucose 100 H 108 H Calcium 9.4 9.3 Liver Function 01/03/24 Range/Units 22:40 Total Bilirubin 0.3 (0.2-1.0) mg/dl AST 24 (13-39) U/L ALT 37 (7-52) U/L Alkaline Phosphatase 98 (34-104) U/L Albumin 4.5 (3.4-5.0) gm/dl
[2024-01-04] MEDS: KETOROLAC 30 MG/ML VIAL IV ONE (21:41)
[2024-01-04] MEDS: MELATONIN 3 MG TAB PO PRN (22:22)
[2024-01-04] MEDS: DOXYCYCLINE HYCLATE 100 MG CAP PO SCH (22:22)
[2024-01-04] MEDS: HYDROmorphone INJ 0.5 MG/0.5 ML SYR IV STA (23:07)
[2024-01-05] MEDS ORDERED: LEVALBUTEROL 1.25 MG/3 ML NEB NEB PRN (04:25)
[2024-01-05 05:02] LABS: Hematocrit (blood only) 41.5 % (42.0-52.0); Hemoglobin 14.3 g/dl (14.0-18.0); Mean Corpuscular Hgb Conc 34.5 g/dL (32.0-36.0); Mean Platelet Volume 9.8 fL (9.4-12.4); Platelet Count 306 K/uL (130-400); RDW Coefficient of Variation 12.6 % (11.5-14.5); RDW Standard Deviation 39.9 fL (36.4-46.3); Red Blood Count 4.77 M/uL (4.70-6.10); White Blood Count 14.62 K/ul (4.8-10.8)
[2024-01-05 05:29] LABS: BUN Creatinine Ratio 19.8 (10-20); C Reactive Protein 0.71 mg/dl (0-0.5); Calcium 9.2 mg/dl (8.6-10.3); Est GFR (African American) 107.1 ml/min; Est GFR (Non-African American) 92.4 ml/min; Potassium 3.8 mmol/L (3.5-5.1)
[2024-01-05] MEDS: HYDROmorphone INJ 0.5 MG/0.5 ML SYR IV PRN (05:39)
[2024-01-05 06:43] LABS: Appearance Urine Clear (Clear); Bacteria Urine Automated Negative (Negative); Bilirubin Urine Negative (Negative); Blood Urine Negative (Negative); Color Urine Dark Yellow; Glucose Urine UA Negative (Negative); Ketones Urine Negative (Negative); Leukocyte Esterase Urine Negative (Negative); Nitrite Urine Negative (Negative); Protein Urine Trace (Negative); RBC Urine Automated 0-4 /hpf (0-4); Specific Gravity Urine 1.041 (1.000-1.030); Urobilinogen Urine Negative (Negative); pH Urine 5.5 (4.5-7.5)
[2024-01-05 07:11] LABS: Amphetamines+Metham, Urine Neg (Neg); Barbiturates, Urine Neg (Neg); Benzodiazepine, Urine Neg (Neg); Cocaine, Urine Neg (Neg); MDMA (Ecstacy), Urine Neg (Neg); Marijuana, Urine Neg (Neg); Methadone, Urine Neg (Neg); Opiate, Urine Pos (Neg); Phencyclidine, Urine Neg (Neg)
[2024-01-05] MEDS: BENZONATATE 100 MG CAPSULE PO PRN (09:31)
[2024-01-05] MEDS: dexAMETHasone 6 MG in SYRINGE 0 ML IV SCH (09:31)
[2024-01-05] MEDS: REMDESIVIR 100 MG in SODIUM CHLORIDE 0.9% 230 ML IV SCH (12:44)
--- NOTE | 2024-01-05 15:36 | Hospitalist Progress Note ---
Date of Service January 05, 2024 Assessment & Plan (1) Acute hypoxemic respiratory failure: Plan: COVID 19 Infection --CTA:No acute findings in the visualized arteries of the chest. -- BioFire positive for COVID-19 --Blood cultures negative to date --Normal procalcitonin --CRP 0.7 Currently saturating well on room air Supplemental oxygen as needed Continue remdesivir, dexamethasone Also empirically on doxycycline Continue nebs Monitor LFTs Asthma exacerbation Not on any maintenance home inhalers Admits to using rescue inhaler albuterol almost on daily basis Continue steroids, nebs as above Situational hypertension secondary to illness Monitor BP GERD continue PPI Mood disorder at baseline Past tobacco/substance abuse--drug screen pending DVT Px: Lovenox SQ Code Status Full code Admission and Anticipated Discharge Date Admission Date: January 04, 2024 Subjective Patient is seen and examined at bedside States having generalized pain Less dyspnea today Still feels some chest tightness associated with cough No other complaints saturating well on room air Review of Systems Review of Systems: All systems reviewed & are unremarkable except as noted in Subjective Physical Exam Physical Exam: Physical Exam: Vitals signs as noted above General Appearance:Obese, no apparent distress Head: normocephalic, Atraumatic Eyes: normal inspection, EOMI Neck: supple, Trachea midline Respiratory/Chest: Decreased breath sounds,+B/L wheezing, No accessory muscle use Cardiovascular: S1, S2, No murmur Abdomen/GI:Soft, Non tender, Bowel sounds present Extremities/Musculoskeletal:normal inspection, no edema Neurologic/Psych:AAOX3, grossly no focal neurological deficits Skin: normal color, warm Results & Data Results & Data Vital Signs (Past 12 Hours) Vital Signs Temp Pulse Pulse Resp BP Pulse Ox O2 Del Method 01/05/24 14:59 37.0 C 103 H 16 137/91 92 Room Air 01/05/24 14:53 103 H 01/05/24 13:15 92 H 15 88 L Room Air 01/05/24 11:17 36.9 C 95 H 16 131/84 92 Room Air 01/05/24 10:25 79 01/05/24 10:00 Room Air 01/05/24 08:30 36.8 C 83 16 137/92 94 Room Air 01/05/24 05:56 80 95 Room Air FiO2 01/05/24 14:59 01/05/24 14:53 01/05/24 13:15 21 01/05/24 11:17 01/05/24 10:25 01/05/24 10:00 01/05/24 08:30 01/05/24 05:56 Laboratory Results Short CBC 01/05/24 Range/Units 04:07 WBC 14.62 H (4.8-10.8) K/ul Hgb 14.3 (14.0-18.0) g/dl Hct 41.5 L (42.0-52.0) % Plt Count 306 (130-400) K/uL BMP 01/05/24 04:07 Sodium 138 Potassium 3.8 D Chloride 106 Carbon Dioxide 23 BUN 21 Creatinine 1.06 Glucose 92 Calcium 9.2 Urine 01/05/24 Range/Units 06:20 Urine Color Dark Yellow Urine Appearance Clear (Clear) Urine pH 5.5 (4.5-7.5) Ur Specific Tyler 1.041 H (1.000-1.030) Urine Protein Trace H (Negative) Urine Glucose (UA) Negative (Negative)
[2024-01-05] MEDS: guaiFENesin 600 MG TABCR PO SCH (20:30)
[2024-01-05] MEDS: oxyCODONE/ACETAMINOPHEN 5mg/325mg TAB PO PRN (20:32)
[2024-01-06 05:03] LABS: Hematocrit (blood only) 43.3 % (42.0-52.0); Hemoglobin 14.4 g/dl (14.0-18.0); Mean Corpuscular Hemoglobin 29.5 pg (25.0-34.0); Mean Corpuscular Hgb Conc 33.3 g/dL (32.0-36.0); Mean Corpuscular Volume 88.7 fL (80.0-100.0); Mean Platelet Volume 9.8 fL (9.4-12.4); Platelet Count 316 K/uL (130-400); RDW Coefficient of Variation 12.7 % (11.5-14.5); RDW Standard Deviation 41.3 fL (36.4-46.3); Red Blood Count 4.88 M/uL (4.70-6.10); White Blood Count 13.83 K/ul (4.8-10.8)
[2024-01-06 05:21] LABS: Albumin Level 4.1 gm/dl (3.4-5.0); BUN Creatinine Ratio 20.4 (10-20); Bilirubin,Total 0.3 mg/dl (0.2-1.0); Calcium 9.3 mg/dl (8.6-10.3); Creatinine Clr Calc Pharmacy 112.9 ml/min; Est GFR (African American) 104.7 ml/min; Est GFR (Non-African American) 90.3 ml/min; Potassium 3.9 mmol/L (3.5-5.1); Total Protein 6.4 gm/dl (6.0-8.3)
[2024-01-06] MEDS ORDERED: HYDROmorphone INJ 0.5 MG/0.5 ML SYR IV PRN (11:46)
--- NOTE | 2024-01-06 13:02 | Hospitalist Progress Note ---
Date of Service January 06, 2024 Assessment & Plan (1) Acute hypoxemic respiratory failure: Plan: COVID 19 Infection --CTA:No acute findings in the visualized arteries of the chest. -- BioFire positive for COVID-19 --Blood cultures negative to date --Normal procalcitonin --CRP 0.7 Currently saturating well on room air Supplemental oxygen as needed Continue remdesivir, dexamethasone--plan to discharge on prednisone taper course Also empirically on doxycycline Continue nebs Monitor LFTs Asthma exacerbation Not on any maintenance home inhalers Admits to using rescue inhaler albuterol almost on daily basis Continue steroids, nebs as above Situational hypertension secondary to illness Monitor BP GERD continue PPI Mood disorder at baseline Past tobacco/substance abuse--drug screen pending DVT Px: Lovenox SQ Code Status Full code Disposition Home Admission and Anticipated Discharge Date Admission Date: January 04, 2024 Subjective Patient is seen and examined at bedside States feeling a lot better today Cough much improved No new complaints Denies any chest pain, dizziness, nausea, vomiting, abdominal pain Saturating well on room air Plan to be discharged home today Review of Systems Review of Systems: All systems reviewed & are unremarkable except as noted in Subjective Physical Exam Physical Exam: Physical Exam: Vitals signs as noted above General Appearance:Obese, no apparent distress Head: normocephalic, Atraumatic Eyes: normal inspection, EOMI Neck: supple, Trachea midline Respiratory/Chest: Decreased breath sounds,+B/L wheezing, No accessory muscle use Cardiovascular: S1, S2, No murmur Abdomen/GI:Soft, Non tender, Bowel sounds present Extremities/Musculoskeletal:normal inspection, no edema Neurologic/Psych:AAOX3, grossly no focal neurological deficits Skin: normal color, warm Results & Data Results & Data Vital Signs (Past 12 Hours) Vital Signs Temp Pulse Pulse Resp BP Pulse Ox O2 Del Method 01/06/24 11:51 37.1 C 87 16 134/86 92 Room Air 01/06/24 09:00 79 01/06/24 09:00 Room Air 01/06/24 07:55 36.6 C 77 16 128/83 94 Room Air 01/06/24 06:19 77 18 92 Room Air 01/06/24 03:49 36.4 C L 71 18 156/84 H 91 Room Air Laboratory Results Short CBC 01/06/24 Range/Units 03:54 WBC 13.83 H (4.8-10.8) K/ul Hgb 14.4 (14.0-18.0) g/dl Hct 43.3 (42.0-52.0) % Plt Count 316 (130-400) K/uL BMP 01/06/24 03:54 Sodium 138 Potassium 3.9 Chloride 106 Carbon Dioxide 26 BUN 22 Creatinine 1.08 Glucose 85 Calcium 9.3 Liver Function 01/06/24 Range/Units 03:54 Total Bilirubin 0.3 (0.2-1.0) mg/dl Direct Bilirubin 0.0 (0-0.2) mg/dl AST 14 (13-39) U/L ALT 27 (7-52) U/L Alkaline Phosphatase 74 (34-104) U/L Albumin 4.1 (3.4-5.0) gm/dl
--- NOTE | 2024-01-06 13:17 | Discharge Summary ---
Date of Service January 06, 2024 Admission HPI Per Admitting Provider History obtained from patient and records. Medical history significant for bronchial asthma, GERD, history candidal meningitis/endophthalmitis as per records, mood disorder, past tobacco/substance abuse. Last confinement August 2022 for asthma exacerbation. Recent ER visit last week for depression without suicidality. 2 weeks history of cough congestion symptoms later productive of yellow sputum. No chest pain, denies aspiration. Possible sick contacts at home. Patient has received COVID-19 vaccination. Patient seen at PCP's office 4 days ago. Augmentin and prednisone course prescribed for complicated bronchitis. Worsening symptoms despite compliance with new prescriptions. Highest SBP 170s, lowest O2 sats of 80s documented at the ER. Decadron and neb treatment administered at the ER. 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 Admission Exam Per Admitting Provider GENERAL: Comfortable, pleasant, obese, no respiratory distress SKIN: Normal color, warm HEENT: Ault palpebral conjunctivae, no ptosis, moist buccal mucosa NECK : Supple, no tenderness CHEST : Decreased breath sounds, expiratory wheezes, no tenderness HEART : RRR, no obvious murmurs ABDOMEN: Some distention, nontender EXTREMITIES : No LE swelling/tenderness, no other conspicuous deformities noted NEUROLOGIC : Coherent, no facial asymmetry, no other gross focality Principal Diagnosis COVID 19 Infection Asthma exacerbation Discharge Data Allergies Allergy/AdvReac Type Severity Reaction Status Date / Time No Known Allergies Allergy Verified 01/04/24 00:15 Consultations 01/04/24 02:41 ED Decision to Admit Stat Procedures Performed Laboratory Results WBC 13.83 K/ul (4.8-10.8) H 01/06/24 03:54 RBC 4.88 M/uL (4.70-6.10) 01/06/24 03:54 Hgb 14.4 g/dl (14.0-18.0) 01/06/24 03:54 Hct 43.3 % (42.0-52.0) 01/06/24 03:54 MCV 88.7 fL (80.0-100.0) 01/06/24 03:54 MCH 29.5 pg (25.0-34.0) 01/06/24 03:54 MCHC 33.3 g/dL (32.0-36.0) 01/06/24 03:54 RDW Std Deviation 41.3 fL (36.4-46.3) 01/06/24 03:54 RDW Coeff of Jen 12.7 % (11.5-14.5) 01/06/24 03:54 Plt Count 316 K/uL (130-400) 01/06/24 03:54 MPV 9.8 fL (9.4-12.4) 01/06/24 03:54 Immature Gran % (Auto) 0.6 % 01/04/24 04:21 Neut % (Auto) 75.3 % 01/04/24 04:21 Lymph % (Auto) 15.1 % 01/04/24 04:21 [place] % (Auto) 2.2 % 01/04/24 04:21 Eos % (Auto) 6.3 % 01/04/24 04:21 Baso % (Auto) 0.5 % 01/04/24 04:21 Neut # (Auto) 9.05 K/uL (1.40-6.50) H 01/04/24 04:21 Lymph # (Auto) 1.82 K/uL (1.20-3.40) 01/04/24 04:21 [place] # (Auto) 0.26 K/uL (0.11-0.59) 01/04/24 04:21 Eos # (Auto) 0.76 K/uL (0.00-0.50) H 01/04/24 04:21 Baso # (Auto) 0.06 K/uL (0.00-0.20) 01/04/24 04:21 Immature Gran # (Auto) 0.07 K/uL (0.01-0.20) 01/04/24 04:21 PT 10.0 Seconds (9.0-12.0) 01/03/24 22:40 INR 0.9 (0.9-1.1) 01/03/24 22:40 APTT 28 Seconds (21-31) 01/03/24 22:40 PTT Ratio 1.0 01/03/24 22:40 VBG pH 7.36 (7.36-7.41) 01/04/24 04:21 VBG pCO2 46 mmHg (38-50) 01/04/24 04:21 VBG pO2 38 mmHg 01/04/24 04:21 VBG HCO3 26 mmol/L 01/04/24 04:21 VBG O2 Saturation 65.4 % 01/04/24 04:21 VBG Base Excess 0.1 mEq/L 01/04/24 04:21 Sodium 138 mmol/L (136-145) 01/06/24 03:54 Potassium 3.9 mmol/L (3.5-5.1) 01/06/24 03:54 Chloride 106 mmol/L (98-107) 01/06/24 03:54 Carbon Dioxide 26 mmol/L (21-32) 01/06/24 03:54 Anion Gap 6 (3-11) 01/06/24 03:54 BUN 22 mg/dl (6-23) 01/06/24 03:54 Creatinine 1.08 mg/dl (0.6-1.4) 01/06/24 03:54 Est Cr Clr Drug Dosing 112.9 ml/min 01/06/24 03:54 Est GFR ( Amer) 104.7 ml/min 01/06/24 03:54 Est GFR (Non-Af Amer) 90.3 ml/min 01/06/24 03:54 BUN/Creatinine Ratio 20.4 (10-20) H 01/06/24 03:54 Glucose 85 mg/dl (70-99(Fasting)) 01/06/24 03:54 Lactate 1.8 mmol/L (0.4-2.0) 01/04/24 04:21 Calcium 9.3 mg/dl (8.6-10.3) 01/06/24 03:54 Magnesium 2.1 mg/dl (1.7-2.4) 01/03/24 22:40 Total Bilirubin 0.3 mg/dl (0.2-1.0) 01/06/24 03:54 Direct Bilirubin 0.0 mg/dl (0-0.2) 01/06/24 03:54 AST 14 U/L (13-39) 01/06/24 03:54 ALT 27 U/L (7-52) 01/06/24 03:54 Alkaline Phosphatase 74 U/L (34-104) 01/06/24 03:54 Troponin I High Sens 5.1 pg/ml (0-20) 01/03/24 22:40 C-Reactive Protein 0.71 mg/dl (0-0.5) H 01/05/24 04:07 Total Protein 6.4 gm/dl (6.0-8.3) 01/06/24 03:54 Albumin 4.1 gm/dl (3.4-5.0) 01/06/24 03:54 Globulin 2.5 gm/dl (2.5-4.0) 01/03/24 22:40 Albumin/Globulin Ratio 1.8 (0.9-2) 01/03/24 22:40 Procalcitonin < 0.02 ng/ml (0-0.5) 01/05/24 04:07 Urine Color Dark Yellow 01/05/24 06:20 Urine Appearance Clear (Clear) 01/05/24 06:20 Urine pH 5.5 (4.5-7.5) 01/05/24 06:20 Ur Specific [place] 1.041 (1.000-1.030) H 01/05/24 06:20 Urine Protein Trace (Negative) H 01/05/24 06:20 Urine Glucose (UA) Negative (Negative) 01/05/24 06:20 Urine Ketones Negative (Negative) 01/05/24 06:20 Urine Blood Negative (Negative) 01/05/24 06:20 Urine Nitrite Negative (Negative) 01/05/24 06:20 Urine Bilirubin Negative (Negative) 01/05/24 06:20 Urine Urobilinogen Negative (Negative) 01/05/24 06:20 Ur Leukocyte Esterase Negative (Negative) 01/05/24 06:20 Urine WBC (Auto) 1-5 /hpf (0-5) 01/05/24 06:20 Urine RBC (Auto) 0-4 /hpf (0-4) 01/05/24 06:20 U Hyaline Cast (Auto) 1-5 /lpf (0-5) 01/05/24 06:20 U Epithel Cells (Auto) 10-20 /lpf (0-5) H 01/05/24 06:20 Urine Bacteria (Auto) Negative (Negative) 01/05/24 06:20 Urine Opiates Screen Pos (Neg) H 01/05/24 06:20 Ur Methadone, Qual Neg (Neg) 01/05/24 06:20 Urine Barbiturates Neg (Neg) 01/05/24 06:20 Ur Phencyclidine (PCP) Neg (Neg) 01/05/24 06:20 U Amphetamin/Meth Scrn Neg (Neg) 01/05/24 06:20 MDMA (Ecstasy) Screen Neg (Neg) 01/05/24 06:20 U Benzodiazepines Scrn Neg (Neg) 01/05/24 06:20 Ur Cocaine Metabolite Neg (Neg) 01/05/24 06:20 U Marijuana (THC) Screen Neg (Neg) 01/05/24 06:20 Adenovirus (PCR) Not Detected (NotDetected) 01/03/24 22:40 B. pertussis DNA (PCR) Not Detected (NotDetected) 01/03/24 22:40 B.parapertussis DNA PCR Not Detected (NotDetected) 01/03/24 22:40 C. pneumoniae DNA (PCR) Not Detected (NotDetected) 01/03/24 22:40 Coronavirus OC43 (PCR) Not Detected (NotDetected) 01/03/24 22:40 Coronavirus HKU1 (PCR) Not Detected (NotDetected) 01/03/24 22:40 Coronavirus 229E (PCR) Not Detected (NotDetected) 01/03/24 22:40 SARS-CoV-2 (PCR) DETECTED (NotDetected) A 01/03/24 22:40 Coronavirus NL63 (PCR) Not Detected (NotDetected) 01/03/24 22:40 Human Metapneumovir PCR Not Detected (NotDetected) 01/03/24 22:40 Influenza Type A (PCR) Not Detected (NotDetected) 01/03/24 22:40 Influenza Type B (PCR) Not Detected (NotDetected) 01/03/24 22:40 M. pneumoniae (PCR) Not Detected (NotDetected) 01/03/24 22:40 Parainfluenza 1 (PCR) Not Detected (NotDetected) 01/03/24 22:40 Parainfluenza 2 (PCR) Not Detected (NotDetected) 01/03/24 22:40 Parainfluenza 3 (PCR) Not Detected (NotDetected) 01/03/24 22:40 Parainfluenza 4 (PCR) Not Detected (NotDetected) 01/03/24 22:40 RSV (PCR) Not Detected (NotDetected) 01/03/24 22:40 Entero/Rhino (PCR) Not Detected (NotDetected) 01/03/24 22:40 Impressions Chest X-Ray 01/03/24 22:31 XR chest 1V not portable CLINICAL HISTORY: Chest pain, nonspecific COMPARISON STUDY: Chest radiograph September 03, 2022. FINDINGS: Lung volumes are normal. Lungs are clear. There is no pneumothorax or pleural effusion. Cardiomediastinal silhouette is stable. There is no evidence for pulmonary edema. IMPRESSION: No acute cardiopulmonary findings. No change in appearance of the chest. ACT 112: Negative or not required by law. Electronically signed by: Gm Bhatti M.D. 01/04/2024 6:34 AM Chest CTA 01/04/24 01:13 Exam(s): CTA CHEST IV Amt: 110 ml opti 350 EXAM: CT Angiography Chest With Intravenous Contrast CLINICAL HISTORY: Reason for exam: chest pain, sob, covid, r/o PE. TECHNIQUE: Axial computed tomographic angiography images of the chest with intravenous contrast. CTDI is 42.65 mGy and DLP is 904.64 mGy-cm. Automated exposure control was utilized for the study. A dose lowering technique was utilized adhering to the principles of ALARA. MIP reconstructed images were created and reviewed. COMPARISON: No relevant prior studies available. FINDINGS: Pulmonary arteries: Unremarkable. No pulmonary embolism. Aorta: No acute findings. No thoracic aortic aneurysm. Lungs: Unremarkable. No mass. No consolidation. Pleural space: Unremarkable. No significant effusion. No pneumothorax. Heart: Unremarkable. No cardiomegaly. No significant pericardial effusion. No evidence of RV dysfunction. Bones/joints: No acute fracture. No dislocation. Soft tissues: Unremarkable. Lymph nodes: Unremarkable. No enlarged lymph nodes. Liver: Hepatic steatosis. IMPRESSION: No acute findings in the visualized arteries of the chest. Electronically signed by: Adolfo Cardoza MD 01/04/24 02:31 AM Ordered Studies 01/04/24 01:13 CT angio chest PE protocol Stat Hospital Course (1) Acute hypoxemic respiratory failure: COVID 19 Infection --CTA:No acute findings in the visualized arteries of the chest. -- BioFire positive for COVID-19 --Blood cultures negative to date --Normal procalcitonin --CRP 0.7 Currently saturating well on room air Supplemental oxygen as needed Continue remdesivir, dexamethasone--plan to discharge on prednisone taper course Also empirically on doxycycline Continue nebs Monitor LFTs Asthma exacerbation Not on any maintenance home inhalers Admits to using rescue inhaler albuterol almost on daily basis Continue steroids, nebs as above Situational hypertension secondary to illness Monitor BP GERD continue PPI Mood disorder at baseline Past tobacco/substance abuse--drug screen pending DVT Px: Lovenox SQ Code Status Full code Disposition Home Total Time Total Time Spent Total Time Spent (In Minutes): 69 minutes Discharge Plan Discharge Items Patient Disposition: Home - Self-Care Reason For Visit: RESP FAILURE, COVID Discharge Diagnosis: COVID 19 Infection Asthma exacerbation Activity: Per Instructions section Exercise/Sports: Wait until after follow-up appointment Non-emergency contact: Primary Care Provider Call non-emergency contact if: you have any medication questions, your symptoms worsen, your pain is concerning for you and you have a fever Follow-up/Referrals: Courtney Diaz MD [Primary Care Provider] - (Date & Time 01/10/2024 2:40 PM Provider Herman Lerma MD Department Family Medicine [facility] ) Diet: Regular Addtl Attending Provider Instructions: Follow-up with your primary care physician Aracelis on 01/10/2024 2:40 PM as scheduled -- Complete the prednisone and doxycycline course as prescribed --Your final blood cultures are pending at the time of discharge. Follow-up with your physician for results. Prednisone course Starting prednisone 40 mg daily for 2 days, then 30 mg daily for 2 days, then 20 mg daily for 2 days, then 10 mg for 2 days and STOP Seek immediate medical attention if your symptoms reoccur or worsen Please take all medications as instructed on discharge list below. Please call if you have any questions or problems. You can reach a [facility] hospitalist on duty at [facility] 24 hours a day by calling [phone] Pending Studies at Discharge: Yes Studies:: Blood cultures Stand-Alone Forms: [facility] [employer], Smoking Cessation Medications and DC Order Prescriptions: New doxycycline hyclate 100 mg Capsule 100 mg PO BID Qty: 6 0RF benzonatate 100 mg Capsule 100 mg PO TID PRN (Reason: cough) Qty: 30 0RF fluticasone propion-salmeterol [Advair Diskus] 100-50 mcg/dose blister with device 1 inh inhalation DAILY Qty: 60 0RF prednisone 10 mg tablet 10 mg PO UD Qty: 20 0RF Rx Instructions: Starting prednisone 40 mg daily for 2 days, then 30 mg daily for 2 days, then 20 mg daily for 2 days, then 10 mg for 2 days and STOP Continued ipratropium-albuterol 0.5 mg-3 mg(2.5 mg base)/3 mL solution for nebulization 3 ml INHALATION DIRECTED PRN (Reason: Shortness Of Breath Or Wheezing) escitalopram oxalate 20 mg tablet 20 mg PO DAILY omeprazole magnesium [Prilosec OTC] 20 mg Tablet,Delayed Release (Dr/Ec) 20 mg PO DAILY albuterol sulfate [Ventolin HFA] 90 mcg/actuation Hfa Aerosol Inhaler 2 puff INHALATION Q6H PRN (Reason: Shortness Of Breath Or Wheezing) Qty: 8.5 1RF Discontinued prednisone 20 mg tablet 40 mg PO DAILY Rx Instructions: STARTED 12/31/23 FOR 5 DAYS. fluticasone propionate [Flonase] 50 mcg/actuation [employer],Suspension 2 spray INTRANASAL DAILY Rx Instructions: administer into each nostril amoxicillin-pot clavulanate 875-125 mg tablet 1 tab PO BID Rx Instructions: STARTED 12/31/23 FOR 10 DAYS Discharge Orders: Discharge Order (Routine); Ordered 01/06/24 Ordered By: Donavan Reeves Admission Data Admit Date/Time: 01/04/24 03:23 Attending Provider: Donavan Reeves Admit Provider: Elvis Martínez Primary Care Provider: Courtney Diaz Other Providers: Elvis Martínez
[2024-01-07 11:07] LABS: Codeine Urine NEGATIVE ng/mL (<50); Hydrocodone Urine NEGATIVE ng/mL (<50); Hydromor Urine 1050 ng/mL (<50); Morphine Urine NEGATIVE ng/mL (<50); Norhydrocodone Conf Ur NEGATIVE ng/mL (<50); Noroxycodone Urine NEGATIVE ng/mL (<50); Oxycodone Urine NEGATIVE ng/mL (<50); Oxymorph Urine NEGATIVE ng/mL (<50)
== END 2024-01-06 14:22 | disposition home or self-care (01) | DRG 177 ==
LOC: ED 22:26 → EDINP 01-04 03:23 → 2W 01-04 03:52